=== PATIENT | female | born 1955 | race Caucasian/White ===

== ENCOUNTER → 2016-10-14 | Outpatient (CLI) | payer OTHER ==
--- NOTE | 2016-10-14 10:26 | RADIOLOGY REPORT (SQ) ---
EXAM DESCRIPTION: U/S ABDOMEN LIMITED W/O DOP COMPLETED DATE/TIME: 10/14/2016 9:50 am REASON FOR STUDY: UPPER ABD PAIN (R10.10) R10.10 UPPER ABDOMINAL PAIN, UNSPECIFIED COMPARISON: Abdominal ultrasound 03/25/2015 TECHNIQUE: Dynamic and static grayscale images acquired of the abdomen and recorded on PACS. Additio nal selected color Doppler and spectral images recorded. LIMITATIONS: None. FINDINGS: PANCREAS: Midline pancreas unremarkable LIVER: Diffuse increased echogenicity from diffuse hepatocellular disease or fatty infiltration. No hepatomegaly LIVER VASCULATURE: Normal directional flow of the main portal vein and hepatic veins. GALLBLADDER: No stones. Normal wall thickness. No pericholecystic fluid. ULTRASOUND-DETECTED TOMAS'S SIGN: Negative. INTRAHEPATIC DUCTS AND COMMON DUCT: CBD and intrahepatic ducts normal caliber. No filling defects. INFERIOR VENA CAVA: Normal flow. AORTA: No aneurysm. RIGHT KIDNEY: Normal size. Normal echogenicity. No solid or suspicious masses. No hydronephrosis. No calcifications. PERITONEAL AND RIGHT PLEURAL SPACE: No ascites or effusions. OTHER: No other significant findings. IMPRESSION: Increased echogenicity of the liver from fatty infiltration or diffuse hepatocellular di sease. This is similar compared to 03/25/2015. No gallstones, gallbladder wall thickening or pericholecystic fluid. TECHNICAL DOCUMENTATION: JOB ID: [id number] [employer]- All Rights Reserved
== END ==
LOC: RAD 09:05
PROVIDERS: ATTEND Family Medicine
DX: R10.10 Upper abdominal pain, unspecified (principal)
CPT/HCPCS: 76705

== ENCOUNTER → 2016-11-28 | Outpatient (CLI) | payer OTHER ==
--- NOTE | 2016-11-28 13:27 | RADIOLOGY REPORT (SQ) ---
EXAM DESCRIPTION: ELBOW RIGHT >2 VIEWS COMPLETED DATE/TIME: 11/28/2016 12:12 pm REASON FOR STUDY: LOOSE BODY IN RIGHT ELBOW M24.021 LOOSE BODY IN RIGHT ELBOW COMPARISON: None. NUMBER OF VIEWS: Four view. TECHNIQUE: AP, lateral, and both oblique radiographic images acquired of the right elbow. LIMITATIONS: None. FINDINGS: MINERALIZATION: Normal. BONES: No acute fracture or dislocation. No worrisome bone lesions. No significant osteophytes. JOINT: No effusions. SOFT TISSUES: No soft tissue swelling. No foreign body. OTHER: No other significant finding. IMPRESSION: NEGATIVE STUDY OF THE RIGHT ELBOW. NO EXPLANATION FOR PAIN. TECHNICAL DOCUMENTATION: JOB ID: [id number] [employer]- All Rights Reserved
== END ==
LOC: OD 11:55
PROVIDERS: ATTEND Family Medicine
DX: M24.021 Loose body in right elbow (principal)

== ENCOUNTER 2016-11-29 11:25 | Emergency (ER) | payer OTHER ==
[2016-11-29] MEDS ORDERED: NORMAL SALINE 1000 ML 1,000 ML IV PRN (11:39)
--- NOTE | 2016-11-29 11:40 | ER Document Report ---
ED Medical Screen (RME) - General Chief Complaint: Dizziness Stated Complaint: DIZZINESS Time Seen by Provider: 11/29/16 11:38 Notes: Patient presents with multiple complaints including being weak and dizzy. She states her blood pressure has been running low. She has been on 2 blood pressure medications chronically for years without problems. Here in triage her blood pressure is 86 systolically. Patient states she has felt short of breath. TRAVEL OUTSIDE OF THE [place] IN LAST 30 DAYS: No - Related Data Allergies/Adverse Reactions: aspirin [Aspirin] Allergy (Verified 11/29/16 11:38) Past Medical History - Social History Frequency of alcohol use: Occasional Drug Abuse: None - Past Medical History Cardiac Medical History: Reports: Hx Hypercholesterolemia, Hx Hypertension Denies: Hx Coronary Artery Disease, Hx Heart Attack Pulmonary Medical History: Reports: Hx Asthma, Hx Pneumonia Denies: Hx Bronchitis, Hx COPD Neurological Medical History: Denies: Hx Cerebrovascular Accident, Hx Seizures Renal/ Medical History: Denies: Hx Peritoneal Dialysis GI Medical History: Denies: Hx Hepatitis, Hx Hiatal Hernia, Hx Ulcer Musculoskeltal Medical History: Reports Hx Arthritis - knee's, back, hips Infectious Medical History: Denies: Hx Hepatitis Past Surgical History: Reports: Hx Appendectomy, Hx Hysterectomy, Hx Tonsillectomy. Denies: Hx Mastectomy, Hx Open Heart Surgery, Hx Pacemaker - Immunizations Hx Diphtheria, Pertussis, Tetanus Vaccination: Yes Physical Exam - Vital signs Vitals: Temp Pulse Resp BP Pulse Ox 97.4 F 84 16 86/61 L 97 11/29/16 11:29 11/29/16 11:29 11/29/16 11:29 11/29/16 11:29 11/29/16 11:29 Course - Vital Signs Vital signs: Temp Pulse Resp BP Pulse Ox 97.4 F 84 16 86/61 L 97 11/29/16 11:29 11/29/16 11:29 11/29/16 11:29 11/29/16 11:29 11/29/16 11:29
[2016-11-29 12:19] LABS: APPEARANCE,URINE CLOUDY; BILIRUBIN,URINE NEGATIVE (NEGATIVE); GLUCOSE, URINE NEGATIVE (NEGATIVE); KETONES,URINE NEGATIVE (NEGATIVE); LEUKOCYTE ESTERASE,URINE TRACE (NEGATIVE); NITRITE,URINE NEGATIVE (NEGATIVE); PROTEIN,URINE NEGATIVE (NEGATIVE); URINE SPECIFIC GRAVITY 1.017
--- NOTE | 2016-11-29 12:41 | ER Document Report ---
ED Dizziness/Weakness - General Chief Complaint: Dizziness Stated Complaint: DIZZINESS Time Seen by Provider: 11/29/16 11:38 Notes: Patient says that she has been feeling dizzy and weak and short of breath since Monday. Was feeling very dry mouth and thirsty. She had access to an Accu- Chek and took her blood sugar and it was 163. Yesterday, she checked her blood pressure and it was only 93/61. She is on 2 blood pressure medicines, Coreg 80 mg every morning and Norvasc 5 mg every evening. She has had some nausea and is been vomiting a couple times a week for the past several weeks. No diarrhea. Denies abdominal pain and denies any chest pains. Has noticed a little pressure with urinating recently and that her urine is dark in color. She has had some chest congestion and cough and feeling short of breath. Has a history of asthma. Also a smoker. Denies any fever or chills or sweats. Had a slight headache on Monday and again yesterday, but not at this time. Patient is in the process of having a GI workup and is had an ultrasound of her gallbladder that was normal and is scheduled to have an upper GI study. She was diagnosed as having a TIA in 1997 and is allergic to aspirin so she has been on Plavix for nearly 20 years. Has acid reflux. High cholesterol. Chronic back pain. Denies being under any unusual stress or strain or emotional anxiety. TRAVEL OUTSIDE OF THE [place] IN LAST 30 DAYS: No - Related Data Allergies/Adverse Reactions: aspirin [Aspirin] Allergy (Verified 11/29/16 11:38) Past Medical History - Social History Smoking Status: Current Every Day Smoker Frequency of alcohol use: Occasional Drug Abuse: None Family History: None Patient has suicidal ideation: No Patient has homicidal ideation: No - Past Medical History Cardiac Medical History: Reports: Hx Hypercholesterolemia, Hx Hypertension Denies: Hx Coronary Artery Disease, Hx Heart Attack Pulmonary Medical History: Reports: Hx Asthma, Hx Pneumonia Denies: Hx Bronchitis, Hx COPD Neurological Medical History: Reports: Other - History of TIA in 1997.. Denies : Hx Cerebrovascular Accident, Hx Seizures Endocrine Medical History: Denies: Hx Diabetes Mellitus Type 1, Hx Diabetes Mellitus Type 2 Musculoskeltal Medical History: Reports Hx Arthritis - knee's, back, hips Infectious Medical History: Denies: Hx Hepatitis Past Surgical History: Reports: Hx Appendectomy, Hx Hysterectomy, Hx Tonsillectomy - Immunizations Hx Diphtheria, Pertussis, Tetanus Vaccination: Yes Review of Systems - Review of Systems Notes: REVIEW OF SYSTEMS: CONSTITUTIONAL : Denies fever. EENT: Denies eye, ear, nose or mouth or throat pain or other symptoms. CARDIOVASCULAR: Denies chest pain. RESPIRATORY: See HPI. GASTROINTESTINAL: Denies abdominal pain , diarrhea, but has had vomiting a couple of times a week for the past several weeks.. GENITOURINARY: Denies difficulty or painful urinating, urinary frequency, blood in urine. Has felt some "pressure" with urination. Thinks her urine is darker in color than usual. MUSCULOSKELETAL: Denies back or neck pain. Denies joint pain or swelling. SKIN: Denies rash or skin lesions. NEUROLOGICAL: Denies LOC or altered mental status. Denies headache currently, but see HPI.. Denies sensory loss or motor deficits. ALL OTHER SYSTEMS REVIEWED AND NEGATIVE. Physical Exam - Vital signs Vitals: Temp Pulse Resp BP Pulse Ox 97.4 F 84 16 86/61 L 97 11/29/16 11:29 11/29/16 11:29 11/29/16 11:29 11/29/16 11:29 11/29/16 11:29 Interpretation: Hypotensive - Notes Notes: PHYSICAL EXAMINATION: GENERAL: Well-appearing, in no acute distress. Blood pressure 86/61. Pulse 84. Afebrile. HEAD: Atraumatic, normocephalic. EYES: Pupils equal round and reactive to light, extraocular movements intact. ENT: oropharynx clear without exudates. Moist mucous membranes. NECK: Normal range of motion, supple. LUNGS: Breath sounds clear and equal bilaterally. HEART: Regular rate and rhythm without murmurs. ABDOMEN: Soft, nontender. No guarding or rebound. BACK: No tenderness throughout entire back. EXTREMITIES: Normal range of motion without pain. Negative Homans bilaterally. NEUROLOGICAL: Normal speech, normal gait. Normal sensory, motor, and reflex exams. Awake, alert, and oriented x3. Cranial nerves normal. PSYCH: Normal mood, normal affect. SKIN: Warm, dry, no rashes. Course - Re-evaluation Re-evalutation: 11/29/16 16:46 Patient was given a liter of saline IV in the emergency department. She was advised to decrease her water intake and increase her salt in her food and beverages. - Vital Signs Vital signs: Temp Pulse Resp BP Pulse Ox 98.0 F 84 20 131/90 H 99 11/29/16 16:42 11/29/16 11:29 11/29/16 16:31 11/29/16 16:31 11/29/16 16:31 - Laboratory Result Diagrams: 11/29/16 12:35 11/29/16 12:35 Laboratory results interpreted by me: 11/29/16 11/29/16 11/29/16 11:46 12:35 12:35 RBC 3.41 L MCV 113 H MCH 38.8 H RDW 16.9 H Plt Count 144 L Sodium 129.2 L Carbon Dioxide 20 L Est GFR ( Amer) 53 L Est GFR (Non-Af Amer) 44 L Glucose 118 H Direct Bilirubin 0.7 H AST 39 H Total Protein 5.5 L Albumin 3.3 L Urine Urobilinogen 2.0 H Ur Leukocyte Esterase TRACE H - Diagnostic Test Radiology results interpreted by me: 11/29/16 14:52 Chest x-ray is normal. - EKG Interpretation by Me EKG shows normal: Sinus rhythm Rate: Normal Rhythm: NSR Additional EKG results interpreted by me: 11/29/16 12:43 EKG is normal. Discharge - Discharge Clinical Impression: Hyponatremia Condition: Stable Disposition: HOME, SELF-CARE Additional Instructions: DIZZINESS: Under normal circumstances, your sense of balance is controlled by a number of signals that your brain receives from several locations: Eyes. No matter what your position, visual signals help you determine where your body is in space and how it's moving. Sensory nerves. These are in your skin, muscles and joints. Sensory nerves send messages to your brain about body movements and positions. Inner ear. The organ of balance in your inner ear is the vestibular labyrinth. It includes loop-shaped structures (semicircular canals) that contain fluid and fine, hair-like sensors that monitor the rotation of your head. Near the semicircular canals are the utricle and saccule, which contain tiny particles called otoconia (l-oku-NZM-nee-uh). These particles are attached to sensors that help detect gravity and igcx-yhj-lvpym motion. Good balance depends on at least two of these three sensory systems working well. For instance, closing your eyes while washing your hair in the shower doesn't mean you'll lose your balance. Signals from your inner ear and sensory nerves help keep you upright. However, if your central nervous system can't process signals from all of these locations, if the messages are contradictory, or if the sensory systems aren't functioning properly, you may experience loss of balance. Dizziness may have a number of potential causes. These may include: Feeling of faintness (presyncope) "Presyncope" is the medical term for feeling faint and lightheaded without losing consciousness. Sometimes nausea, pale skin and a sense of dizziness accompany a feeling of faintness. Causes of presyncope include: Drop in blood pressure (orthostatic hypotension). A dramatic drop in your systolic blood pressure - the higher number in your blood pressure reading - may result in lightheadedness or a feeling of faintness. It can occur after sitting up or standing too quickly. Inadequate output of blood from the heart. Conditions such as partially blocked arteries (atherosclerosis), disease of the heart muscle (cardiomyopathy) , abnormal heart rhythm (arrhythmia) or a decrease in blood volume may cause inadequate blood flow from your heart. Lightheadedness and other kinds of dizziness Feeling lightheaded is the feeling of being "spaced out" or having the sensation of spinning inside your head. It can also give you the sensation that if your lightheadedness worsens, you might lose consciousness. Causes may include: Inner ear disorders. These abnormalities of your inner ear can lead to illusions of motion and make you feel like you're floating. Anxiety disorders. Certain anxiety disorders, such as panic attacks and a fear of leaving home or being in large, open spaces (agoraphobia), may cause lightheadedness. Hyperventilation. Abnormally rapid breathing that often accompanies anxiety disorders may make you feel lightheaded. Hyponatremia You have an abnormally low level of serum sodium, called hyponatremia. Low serum sodium may cause weakness, fatigue, confusion, or even seizures. Usually, low sodium is due to taking diuretics (water pills), combined with drinking too much water. It can also be due to excessive vomiting or diarrhea. If no obvious cause is evident, further evaluation will be necessary. If the hyponatremia results from taking diuretics, it's treated by restricting the amount of water you can drink. If it's due to vomiting and diarrhea, it's treated by drinking liberal amounts of rehydration solution (for example Lytren or Pedialyte). A follow-up blood test is often done to see that the sodium is returning to normal. Call the physician if you have severe weakness, muscle twitching or cramping, palpitations (pounding or irregular heartbeat), confusion, headache, seizures, or any other new or alarming symptoms. Except for your low sodium level, you have a NORMAL EXAM AND WORKUP: At this time, your examination and workup show no significant abnormality. No significant abnormal physical findings were noted. All laboratory, EKG, and imaging (x-ray, CT scans, ultrasound) studies that were ordered show no significant abnormality. Although your examination and all studies that were ordered showed no significant abnormal finding, there are no examinations and no studies that are 100% accurate. There is always the possibility that some abnormality could exist and not be detected with physical examination or within the limits and capabilities of laboratory and other studies. You should return or follow up as you were instructed on your visit today for further evaluation if your symptoms do not resolve. Drink plenty of fluids that have salt in them such as sodas, etc. Use some extra table salt at the time of your meals. Reduce your alcohol intake as it will lower your sodium level. FOLLOW-UP CARE: If you have been referred to a physician for follow-up care, call the physician s office for an appointment as you were instructed or within the next two days. If you experience worsening or a significant change in your symptoms, notify the physician immediately or return to the Emergency Department at any time for re-evaluation. Follow-up with Dr. Correia next week so that she can recheck your labs and make sure everything is doing well. Referrals: MOLLY CORREIA MD [Primary Care Provider] - Follow up in 1 week
[2016-11-29 12:52] LABS: ABSOLUTE BASOPHILS # (AUTO) 0.1 10^3/uL (0.0-0.2); ABSOLUTE EOSINOPHILS # (AUTO) 0.1 10^3/uL (0.0-0.6); ABSOLUTE LYMPHOCYTES (AUTO) 1.4 10^3/uL (0.5-4.7); ABSOLUTE MONOCYTES (AUTO) 0.3 10^3/uL (0.1-1.4); ABSOLUTE NEUT (AUTO) 3.2 10^3/uL (1.7-8.2); BASOPHILS % (AUTO) 1.8 % (0-2); EOSINOPHILS % (AUTO) 1.8 % (0-6); HEMATOCRIT 38.6 % (36.0-47.0); HEMOGLOBIN 13.2 g/dL (12.0-15.5); LYMPHOCYTES % (AUTO) 28.4 % (13-45); MEAN CORPUSCULAR HEMOGLOBIN 38.8 pg (27.0-33.4); MEAN CORPUSCULAR HGB CONC 34.3 g/dL (32.0-36.0); MONOCYTES % (AUTO) 5.6 % (3-13); RED BLOOD COUNT 3.41 10^6/uL (3.72-5.28); RED CELL DISTRIBUTION WIDTH 16.9 % (11.5-14.0); SEGMENTED NEUTROPHILS % (AUTO) 62.4 % (42-78); WHITE BLOOD COUNT 5.1 10^3/uL (4.0-10.5)
[2016-11-29 13:12] LABS: ALANINE AMINOTRANSFERASE 33 U/L (9-52); ALBUMIN 3.3 g/dL (3.5-5.0); ALKALINE PHOSPHATASE 71 U/L (38-126); ANION GAP 7 (5-19); ASPARTATE AMINO TRANSFERASE 39 U/L (14-36); BILIRUBIN,DIRECT 0.7 mg/dL (0.0-0.4); BILIRUBIN,TOTAL 1.2 mg/dL (0.2-1.3); BLOOD UREA NITROGEN 14 mg/dL (7-20); CARBON DIOXIDE 20 mmol/L (22-30); CHLORIDE 102 mmol/L (98-107); CREATININE RESULT 1.24 mg/dL (0.52-1.25); GLUCOSE 118 mg/dL (75-110); POTASSIUM 4.6 mmol/L (3.6-5.0); SODIUM 129.2 mmol/L (137-145); TOTAL PROTEIN 5.5 g/dL (6.3-8.2)
[2016-11-29 13:17] LABS: MEAN CORPUSCULAR VOLUME 113 fl (80-97)
[2016-11-29 13:18] LABS: ANISOCYTOSIS 1+; TOXIC GRANULATION 1+; TOXIC VACUOLATION PRESENT
--- NOTE | 2016-11-29 13:31 | RADIOLOGY REPORT (SQ) ---
EXAM DESCRIPTION: CHEST PA/LAT COMPLETED DATE/TIME: 11/29/2016 1:19 pm REASON FOR STUDY: Short of breath, low blood pressure, congested COMPARISON: 11/05/2015 EXAM PARAMETERS: NUMBER OF VIEWS: two views TECHNIQUE: Digital Frontal and Lateral radiographic views of the chest acquired. RADIATION DOSE: NA LIMITATIONS: none FINDINGS: LUNGS AND PLEURA: No opacities, masses or pneumothorax. No pleural effusion. MEDIASTINUM AND HILAR STRUCTURES: No masses or contour abnormalities. HEART AND VASCULAR STRUCTURES: Heart normal size. No evidence for failure. BONES: No acute findings. HARDWARE: None in the chest. OTHER: No other significant finding. IMPRESSION: NO SIGNIFICANT RADIOGRAPHIC FINDING IN THE CHEST. TECHNICAL DOCUMENTATION: JOB ID: [id number] [employer]- All Rights Reserved
[2016-11-29 16:41] VITALS: BP 131/90
--- NOTE | 2016-11-29 21:12 | EKG REPORT ---
SEVERITY:- ABNORMAL ECG - SINUS RHYTHM PROBABLE INFERIOR INFARCT, OLD : Confirmed by: Matthew Cerna 29-Nov-2016 21:10:53
== END 2016-11-29 17:03 | disposition home or self-care (01) ==
LOC: ER 11:25
DX: E87.1 Hypo-osmolality and hyponatremia (principal); R42 Dizziness and giddiness; J45.909 Unspecified asthma, uncomplicated; I95.9 Hypotension, unspecified; R06.02 Shortness of breath; R53.1 Weakness; R68.2 Dry mouth, unspecified; R11.2 Nausea with vomiting, unspecified; R05 Cough; R09.89 Other specified symptoms and signs involving the circulatory and respiratory systems; R39.89 Other symptoms and signs involving the genitourinary system; I10 Essential (primary) hypertension; F17.200 Nicotine dependence, unspecified, uncomplicated; Z79.899 Other long term (current) drug therapy; Z88.6 Allergy status to analgesic agent; Z87.01 Personal history of pneumonia (recurrent)
CPT/HCPCS: 93005; 99284; 96360; 36415; 87040; 87086; 85025; 80053; 81001; 71020; 93010; J7030

== ENCOUNTER → 2017-01-17 | Outpatient (CLI) | payer OTHER ==
--- NOTE | 2017-01-17 14:47 | RADIOLOGY REPORT (SQ) ---
EXAM DESCRIPTION: CHEST PA/LATERAL COMPLETED DATE/TIME: 01/17/2017 2:31 pm REASON FOR STUDY: COUGH COMPARISON: 11/29/2016 NUMBER OF VIEWS: Two view. TECHNIQUE: Frontal and lateral radiographic views of the chest acquired. LIMITATIONS: None. FINDINGS: LUNGS AND PLEURA: No opacities, masses or pneumothorax. No pleural effusion. MEDIASTINUM AND HILAR STRUCTURES: No masses or contour abnormalities. HEART AND VASCULATURE: Heart normal size. No evidence for failure. BONY STRUCTURES: No acute findings. HARDWARE: None. OTHER: No other significant finding. IMPRESSION: NO SIGNIFICANT RADIOGRAPHIC FINDING IN THE CHEST. No interval change. TECHNICAL DOCUMENTATION: JOB ID: [id number] [employer]- All Rights Reserved
== END ==
LOC: OD 14:19
PROVIDERS: ATTEND Family Medicine
DX: R05 Cough (principal)
CPT/HCPCS: 71020

== ENCOUNTER → 2017-06-02 | Outpatient (CLI) | payer OTHER ==
--- NOTE | 2017-06-02 10:34 | RADIOLOGY REPORT (SQ) ---
EXAM DESCRIPTION: CHEST PA/LAT COMPLETED DATE/TIME: 06/02/2017 9:19 am REASON FOR STUDY: R06.02 SHORTNESS OF BREATH COMPARISON: Two-view chest 11/29/2016, 03/28/2012 EXAM PARAMETERS: NUMBER OF VIEWS: two views TECHNIQUE: Digital Frontal and Lateral radiographic views of the chest acquired. RADIATION DOSE: NA LIMITATIONS: none FINDINGS: LUNGS AND PLEURA: No opacities, masses or pneumothorax. No pleural effusion. MEDIASTINUM AND HILAR STRUCTURES: No masses or contour abnormalities. HEART AND VASCULAR STRUCTURES: Heart normal size. No evidence for failure. BONES: No acute findings. HARDWARE: None in the chest. OTHER: No other significant finding. IMPRESSION: NO SIGNIFICANT RADIOGRAPHIC FINDING IN THE CHEST. TECHNICAL DOCUMENTATION: JOB ID: [id number] [employer]- All Rights Reserved
--- NOTE | 2017-06-02 12:41 | RADIOLOGY REPORT (SQ) ---
EXAM DESCRIPTION: NM LUNG VENT/PERF SCAN COMPLETED DATE/TIME: 06/02/2017 11:02 am REASON FOR STUDY: R06.02 SHORTNESS OF BREATH R06.02 SHORTNESS OF BREATH COMPARISON: Chest films 06/02/2017, 11/29/2016 RADIONUCLIDE AND DOSE: 5.2 millicuries TC-99m MAA Intravenous 32.4 millicuries TC-99m DTPA Inhaled aerosol TECHNIQUE: Eight views of the lungs acquired post ventilation of DTPA aerosol. Eight matching views of the lungs acquired following injection of MAA. LIMITATIONS: None. FINDINGS: VENTILATION: Symmetric and homogeneous distribution of DTPA aerosol during ventilatory pha se. No significant areas of photopenia. PERFUSION: Perfusion images with normal homogenous activity and no wedge-shaped or segmental defects. No ventilation-perfusion mismatches. OTHER: No other significant finding. IMPRESSION: NORMAL VENTILATION-PERFUSION LUNG SCAN. NEGATIVE FOR PULMONARY EMBOLI. TECHNICAL DOCUMENTATION: JOB ID: [id number] [employer]- All Rights Reserved Reading location - IP/workstation name: [email or web address]
== END ==
LOC: RAD 09:46
PROVIDERS: ATTEND Family Medicine
DX: R06.02 Shortness of breath (principal)
CPT/HCPCS: 71046; 78582; A9540; A9567; Q9969

== ENCOUNTER → 2017-06-06 | Outpatient (CLI) | payer OTHER ==
--- NOTE | 2017-06-06 10:29 | WOMENS IMAGING REPORT ---
EXAM DESCRIPTION: BONE DENSITY HIP/SPINE COMPLETED DATE/TIME: 06/06/2017 9:18 am REASON FOR STUDY: SCREENING MAMMO, ASYMPTOMATIC MENOPAUSAL STATE Z12.31 ENCNTR SCREEN MAMMOGRAM FOR MALIGNANT NEOPLASM OF AMELIA Z78.0 ASYMPTOMATIC MENOPAUSAL STATE COMPARISON: Multiple since 2008 TECHNIQUE: Dual-Energy X-ray Absorptiometry (DEXA) of the AP Spine and Hip. LIMITATIONS: None. FINDINGS: LUMBAR SPINE: The bone mineral density (BMD) measured from L1-L4 in the AP projection correlates with a T-score of -0.7, which is within normal limits as defined by the World Health Organization. Please note that th is does include vertebral body endplate sclerosis and posterior element sclerosis. This is a 5% incr ease since baseline assessment in 2008, and a 4% increase in bone density since 2014 HIP: The bone mineral density (BMD) measured in the left femoral neck at the hip correlates with a T-score of -2.0, which is osteopenic as defined by the World Health Organization. This is stable compared t o baseline assessment in 2008 IMPRESSION: 1. LUMBAR SPINE: Normal 2. HIP: Osteopenic COMMENT: The World Health Organization defines low BMD as follows: T-score: Normal: Greater than -1.0 Osteopenia: Between -1.0 and -2.5 Osteoporosis: Less than -2.5 without fractures Established osteoporosis: Less than -2.5 with fractures In general, you may wish to consider: Diagnosis Treatment Follow-up DEXA Normal BMD Prevention 2-3 years Osteopenia Prevention/Therapy 1-2 years Osteoporosis Therapy Yearly TECHNICAL DOCUMENTATION: JOB ID: [id number] [employer]- All Rights Reserved Reading location - IP/workstation name: [facility] / [email or web address]
--- NOTE | 2017-06-06 11:54 | WOMENS IMAGING REPORT ---
EXAM DESCRIPTION: BILAT SCREENING MAMMO W/CAD COMPLETED DATE/TIME: 06/06/2017 9:18 am REASON FOR STUDY: SCREENING MAMMO, ASYMPTOMATIC MENOPAUSAL STATE Z12.31 ENCNTR SCREEN MAMMOGRAM FOR MALIGNANT NEOPLASM OF AMELIA Z78.0 ASYMPTOMATIC MENOPAUSAL STATE COMPARISON: 03/10/2015 and 02/27/2013 TECHNIQUE: Standard craniocaudal and mediolateral oblique views of each breast recorded using digita l acquisition. LIMITATIONS: None. FINDINGS: No masses, calcifications or architectural distortion. No areas of suspicion. Read with the assistance of CAD. .[facility] - R2 Cenova Version 1.3 .[facility] - R2 Cenova Version 1.3 .[facility] - R2 Cenova Version 2.4 .[facility] [place] R2 Cenova Version 2.4 .[facility] - R2 Senior Care Manager Version 9.2 IMPRESSION: NORMAL MAMMOGRAM. BIRADS 1. BREAST DENSITY: b. There are scattered areas of fibroglandular density. BIRAD: 1 NEGATIVE RECOMMENDATION: ROUTINE SCREENING COMMENT: The patient has been notified of the results by letter per MQSA requirements. Additional no tification policies are in place for contacting patient with suspicious or incomplete findings. Quality ID #[id number]: The [employer] recommends an annual screening mammogram for women aged 40 years or over. This facility utilizes a reminder system to ensure that all patients receive reminder letters, and/or direct phone calls for appointments. This includes reminders for routine scr eening mammograms, diagnostic mammograms, or other Breast Imaging Interventions when appropriate. Th is patient will be placed in the appropriate reminder system. The [employer] (ACR) has developed recommendations for screening MRI of the breast s in certain patient populations, to be used in conjunction with mammography. Breast MRI surveillanc e may be appropriate for women with more than 20% lifetime risk of developing breast cancer as deter mined by genetic testing, significant family history of the disease, or history of mantle radiation f or Hodgkins Disease. ACR Practice Guidelines 2008. TECHNICAL DOCUMENTATION: FINDING NUMBER: (1) ASSESSMENT: (1) JOB ID: [id number] [employer]- All Rights Reserved Reading location - IP/workstation name: [email or web address]
== END ==
LOC: WI 08:03
PROVIDERS: ATTEND Family Medicine
DX: Z12.31 Encounter for screening mammogram for malignant neoplasm of breast (principal); Z78.0 Asymptomatic menopausal state
CPT/HCPCS: 77067; 77080

== ENCOUNTER → 2017-06-26 | Outpatient (CLI) | payer OTHER ==
--- NOTE | 2017-06-26 15:26 | RADIOLOGY REPORT (SQ) ---
EXAM DESCRIPTION: MRI LUMBAR SPINE WITHOUT COMPLETED DATE/TIME: 06/26/2017 10:36 am REASON FOR STUDY: INTERVERTEBRAL DISC DISORDERS WITH RADICULOPATHY M51.16 INTERVERTEBRAL DISC DISOR DERS W RADICULOPATHY, LUMBAR COMPARISON: MRI lumbar spine 12/17/2007 TECHNIQUE: Sagittal and Axial imaging includes T1, T2, STIR and gradient echo sequences. Coronal T2/ HASTE imaging. LIMITATIONS: None. FINDINGS: VISUALIZED UPPER ABDOMEN: Limited evaluation. No acute or suspicious findings suggested. SEGMENTATION: No transitional anatomy. The lowest well-developed disc space is labeled L5-S1. ALIGNMENT: Anatomic. VERTEBRAE: Intact. BONE MARROW: Normal. No marrow replacement or reactive changes. DISC SIGNAL: Diffuse decreased T2 weighted intervertebral disc signal throughout L4-5 and L5-S1. Dis c space loss of height at L5-S1. POSTERIOR ELEMENTS: Generally intact. No pars defect evident. HARDWARE: None in the spine. CORD AND CONUS: Normal in size and signal intensity. Conus at the L1-2 level. SOFT TISSUES: No aortic aneurysm seen. No bulky retroperitoneal adenopathy or mass. No paraspinal mas s or fluid. T11-12: Unremarkable T12-L1: Unremarkable L1-L2: Unremarkable L2-L3: Unremarkable L3-L4: Mild bilateral facet hypertrophy is present. No central or foraminal encroachment. No fire extinguisher charger ior disc bulging. L4-L5: Small annular tear along the left foraminal and lateral disc margin, best shown on axial T2 im age 25. Minimal posterior disc bulging at L4-5 with moderate bilateral facet and ligament hypertroph y. No significant central canal or foraminal encroachment. No exiting L4 nerve root impingement. L5-S1: Mild diffuse posterior disc bulging is present left greater than right with mild bilateral fac et hypertrophy. No central stenosis. Mild right inferior foraminal narrowing. Mild to moderate lef t foraminal narrowing. No exiting L5 nerve root impingement SACRUM: Visualized upper sacrum intact. OTHER: No other significant findings. IMPRESSION: Left foraminal and lateral annular tear at L4-5 Degenerative changes at L4-5 and L5-S1 without high-grade central or foraminal stenosis TECHNICAL DOCUMENTATION: JOB ID: [id number] [employer]- All Rights Reserved Reading location - IP/workstation name: [email or web address] [facility]
== END ==
LOC: RAD 09:46
PROVIDERS: ATTEND Family Medicine
DX: M51.16 Intervertebral disc disorders with radiculopathy, lumbar region (principal)
CPT/HCPCS: 72148

== ENCOUNTER 2017-10-28 13:34 | Inpatient (IN) | payer OTHER ==
--- NOTE | 2017-10-28 14:51 | ER Document Report ---
ED Medical Screen (RME) - General Chief Complaint: Abdominal Pain Stated Complaint: ABDOMINAL PAIN Time Seen by Provider: 10/28/17 14:45 TRAVEL OUTSIDE OF THE [place] IN LAST 30 DAYS: No - HPI Notes: 10/28/17 14:50 Right upper quadrant abdominal pain starting at 10:00 this morning. Patient noted to be hypotensive in triage. - Related Data Allergies/Adverse Reactions: aspirin [Aspirin] Allergy (Verified 10/28/17 13:35) Past Medical History - Past Medical History Cardiac Medical History: Reports: Hx Hypercholesterolemia, Hx Hypertension Denies: Hx Coronary Artery Disease, Hx Heart Attack Pulmonary Medical History: Reports: Hx Asthma, Hx Pneumonia Denies: Hx Bronchitis, Hx COPD Neurological Medical History: Denies: Hx Cerebrovascular Accident, Hx Seizures Endocrine Medical History: Denies: Hx Diabetes Mellitus Type 1, Hx Diabetes Mellitus Type 2 Renal/ Medical History: Denies: Hx Peritoneal Dialysis GI Medical History: Denies: Hx Hepatitis, Hx Hiatal Hernia, Hx Ulcer Musculoskeltal Medical History: Reports Hx Arthritis - knee's, back, hips Infectious Medical History: Denies: Hx Hepatitis Past Surgical History: Reports: Hx Appendectomy, Hx Hysterectomy, Hx Tonsillectomy. Denies: Hx Mastectomy, Hx Open Heart Surgery, Hx Pacemaker - Immunizations Hx Diphtheria, Pertussis, Tetanus Vaccination: Yes Review of Systems - Review of Systems Gastrointestinal: Abdominal pain, Nausea Physical Exam - Vital signs Vitals: Temp Pulse Resp BP Pulse Ox 98.0 F 88 22 H 95/78 L 99 10/28/17 14:01 10/28/17 14:01 10/28/17 14:01 10/28/17 14:01 10/28/17 14:01 - Abdominal Tenderness: Nontender, Tender - Right upper quadrant tenderness Course - Vital Signs Vital signs: Temp Pulse Resp BP Pulse Ox 98 F 88 16 85/64 L 96 10/28/17 14:36 10/28/17 14:36 10/28/17 14:36 10/28/17 14:36 10/28/17 14:36 Doctor's Discharge - Discharge Referrals: MOLLY CORREIA MD [Primary Care Provider] - Follow up as needed
[2017-10-28] MEDS: NORMAL SALINE 1000 ML 1,000 ML IV PRN ×3 (15:20→18:00)
[2017-10-28 15:27] LABS: ABSOLUTE BASOPHILS # (AUTO) 0.1 10^3/uL (0.0-0.2); ABSOLUTE LYMPHOCYTES (AUTO) 2.5 10^3/uL (0.5-4.7); ABSOLUTE MONOCYTES (AUTO) 0.5 10^3/uL (0.1-1.4); ABSOLUTE NEUT (AUTO) 9.7 10^3/uL (1.7-8.2); BASOPHILS % (AUTO) 0.5 % (0-2); EOSINOPHILS % (AUTO) 0.4 % (0-6); HEMATOCRIT 46.3 % (36.0-47.0); HEMOGLOBIN 15.7 g/dL (12.0-15.5); LYMPHOCYTES % (AUTO) 19.1 % (13-45); MEAN CORPUSCULAR HEMOGLOBIN 33.8 pg (27.0-33.4); MEAN CORPUSCULAR HGB CONC 33.9 g/dL (32.0-36.0); MEAN CORPUSCULAR VOLUME 100 fl (80-97); MONOCYTES % (AUTO) 4.3 % (3-13); PLATELET COUNT 248 10^3/uL (150-450); RED BLOOD COUNT 4.66 10^6/uL (3.72-5.28); RED CELL DISTRIBUTION WIDTH 13.7 % (11.5-14.0); SEGMENTED NEUTROPHILS % (AUTO) 75.7 % (42-78); TOTAL CELLS COUNTED % (AUTO) 100 %; WHITE BLOOD COUNT 12.8 10^3/uL (4.0-10.5)
[2017-10-28 15:46] LABS: ALANINE AMINOTRANSFERASE 74 U/L (9-52); ALBUMIN 4.4 g/dL (3.5-5.0); ALKALINE PHOSPHATASE 91 U/L (38-126); ANION GAP 14 (5-19); ASPARTATE AMINO TRANSFERASE 106 U/L (14-36); BILIRUBIN,DIRECT 0.4 mg/dL (0.0-0.4); BILIRUBIN,TOTAL 0.8 mg/dL (0.2-1.3); BLOOD UREA NITROGEN 16 mg/dL (7-20); CALCIUM 9.9 mg/dL (8.4-10.2); CARBON DIOXIDE 27 mmol/L (22-30); CHLORIDE 96 mmol/L (98-107); GLUCOSE 196 mg/dL (75-110); POTASSIUM 4.8 mmol/L (3.6-5.0); SODIUM 136.6 mmol/L (137-145); TOTAL PROTEIN 7.2 g/dL (6.3-8.2)
[2017-10-28] MEDS ORDERED: MORPHINE SULFATE 10 MG/ML INJ IV ONE (15:56)
[2017-10-28] MEDS ORDERED: ONDANSETRON HCL INJ/PF 4 MG/2 ML SDV IV ONE (15:56)
--- NOTE | 2017-10-28 16:23 | ER Document Report ---
ED GI/ - General Chief Complaint: Abdominal Pain Stated Complaint: ABDOMINAL PAIN Time Seen by Provider: 10/28/17 14:45 TRAVEL OUTSIDE OF THE [place] IN LAST 30 DAYS: No - HPI Patient complains to provider of: Abdominal pain, Vomiting Onset: This morning Timing/Duration: Sudden Quality of pain: Achy, Cramping, Sharp Severity at maximum: Moderate Severity in ED: Moderate Pain Level: 3 Location: RUQ Associated symptoms: Nausea, Vomiting Exacerbated by: Denies Relieved by: Denies Notes: 10/28/17 16:22 Patient is a 62-year-old female presenting to the emergency room today complaining of right upper quadrant abdominal pain with nausea and vomiting this morning while she was watching television, she denies any urinary symptoms , no bowel movement today, no history of similar symptoms previously - Related Data Allergies/Adverse Reactions: aspirin [Aspirin] Allergy (Verified 10/28/17 13:35) Past Medical History - General Information source: Patient - Social History Smoking Status: Current Every Day Smoker Chew tobacco use (# tins/day): No Frequency of alcohol use: Social Drug Abuse: None Family History: None Patient has suicidal ideation: No Patient has homicidal ideation: No - Past Medical History Cardiac Medical History: Reports: Hx Hypercholesterolemia, Hx Hypertension Denies: Hx Coronary Artery Disease, Hx Heart Attack Pulmonary Medical History: Reports: Hx Asthma, Hx Pneumonia Denies: Hx Bronchitis, Hx COPD Neurological Medical History: Denies: Hx Cerebrovascular Accident, Hx Seizures Endocrine Medical History: Denies: Hx Diabetes Mellitus Type 1, Hx Diabetes Mellitus Type 2 Renal/ Medical History: Denies: Hx Peritoneal Dialysis GI Medical History: Denies: Hx Hepatitis, Hx Hiatal Hernia, Hx Ulcer Musculoskeletal Medical History: Reports Hx Arthritis - knee's, back, hips Infectious Medical History: Denies: Hx Hepatitis Past Surgical History: Reports: Hx Appendectomy, Hx Hysterectomy, Hx Tonsillectomy. Denies: Hx Mastectomy, Hx Open Heart Surgery, Hx Pacemaker - Immunizations Hx Diphtheria, Pertussis, Tetanus Vaccination: Yes Review of Systems - Review of Systems Constitutional: No symptoms reported EENT: No symptoms reported Cardiovascular: No symptoms reported Respiratory: No symptoms reported Gastrointestinal: See HPI Genitourinary: No symptoms reported Female Genitourinary: No symptoms reported Musculoskeletal: No symptoms reported Skin: No symptoms reported Hematologic/Lymphatic: No symptoms reported Neurological/Psychological: No symptoms reported -: Yes All other systems reviewed and negative Physical Exam - Vital signs Vitals: Temp Pulse Resp BP Pulse Ox 98.0 F 88 22 H 95/78 L 99 10/28/17 14:01 10/28/17 14:01 10/28/17 14:01 10/28/17 14:01 10/28/17 14:01 Interpretation: Normal - General General appearance: Appears well, Alert - HEENT Head: Normocephalic, Atraumatic Eyes: Normal Pupils: PERRL - Respiratory Respiratory status: No respiratory distress Chest status: Nontender Breath sounds: Normal Chest palpation: Normal - Cardiovascular Rhythm: Regular Heart sounds: Normal auscultation Murmur: No - Abdominal Inspection: Normal Distension: No distension Bowel sounds: Normal Tenderness: Tender - Right upper quadrant Organomegaly: No organomegaly - Back Back: Normal, Nontender - Extremities General upper extremity: Normal inspection, Nontender, Normal color, Normal ROM , Normal temperature General lower extremity: Normal inspection, Nontender, Normal color, Normal ROM , Normal temperature, Normal weight bearing. No: Meri's sign - Neurological Neuro grossly intact: Yes Cognition: Normal Orientation: AAOx4 [place] Coma Scale Eye Opening: Spontaneous [place] Coma Scale Verbal: Oriented [place] Coma Scale Motor: Obeys Commands [place] Coma Scale Total: 15 Speech: Normal Motor strength normal: LUE, RUE, LLE, RLE Sensory: Normal - Psychological Associated symptoms: Normal affect, Normal mood - Skin Skin Temperature: Warm Skin Moisture: Dry Skin Color: Normal Course - Vital Signs Vital signs: Temp Pulse Resp BP Pulse Ox 98 F 88 19 140/94 H 100 10/28/17 14:36 10/28/17 14:36 10/28/17 16:01 10/28/17 16:01 10/28/17 16:01 - Laboratory Result Diagrams: 10/28/17 13:10 10/28/17 13:10 Laboratory results interpreted by me: 10/28/17 10/28/17 13:10 13:10 WBC 12.8 H Hgb 15.7 H MCV 100 H MCH 33.8 H Absolute Neutrophils 9.7 H Sodium 136.6 L Chloride 96 L Est GFR ( Amer) 53 L Est GFR (Non-Af Amer) 44 L Glucose 196 H AST 106 H ALT 74 H Lipase 93316.2 H Discharge - Discharge Clinical Impression: Acute pancreatitis Qualifiers: Pancreatitis type: unspecified pancreatitis type Acute pancreatitis complication: no infection or necrosis Qualified Code(s): K85.90 - Acute pancreatitis without necrosis or infection, unspecified Condition: Stable Disposition: ADMITTED INPATIENT Admitting Provider: Hospitalist Unit Admitted: Medical Floor Referrals: MOLLY CORREIA MD [Primary Care Provider] - Follow up as needed
[2017-10-28 16:24] LABS: LIPASE 12093.2 U/L (23-300)
--- NOTE | 2017-10-28 16:38 | RADIOLOGY REPORT (SQ) ---
EXAM DESCRIPTION: U/S ABDOMEN LIMITED W/O DOP COMPLETED DATE/TIME: 10/28/2017 4:26 pm REASON FOR STUDY: ruq pain COMPARISON: 10/14/2016. TECHNIQUE: Dynamic and static grayscale images acquired of the abdomen and recorded on PACS. Elenao alexander selected color Doppler and spectral images recorded. LIMITATIONS: None. FINDINGS: PANCREAS: No masses. No peripancreatic edema or fluid collections. LIVER: Echotexture is coarse with increased echogenicity consistent with fatty infiltration. LIVER VASCULATURE: Normal directional flow of the main portal vein and hepatic veins. GALLBLADDER: No stones. Normal wall thickness. No pericholecystic fluid. ULTRASOUND-DETECTED TOMAS'S SIGN: Negative. INTRAHEPATIC DUCTS AND COMMON DUCT: CBD and intrahepatic ducts normal caliber. No filling defects. INFERIOR VENA CAVA: Normal flow. AORTA: No aneurysm. RIGHT KIDNEY: Normal size. Normal echogenicity. No solid or suspicious masses. No hydronephrosis. No calcifications. PERITONEAL AND RIGHT PLEURAL SPACE: No ascites or effusions. OTHER: No other significant finding. IMPRESSION: FATTY INFILTRATION OF THE LIVER. OTHERWISE NORMAL RIGHT UPPER QUADRANT ULTRASOUND. TECHNICAL DOCUMENTATION: JOB ID: [id number] [employer]- All Rights Reserved Reading location - IP/workstation name: [email or web address]
[2017-10-28] MEDS ORDERED: ONDANSETRON 4 MG TAB.RAPDIS PO PRN (17:15)
[2017-10-28] MEDS ORDERED: ZOLPIDEM TARTRATE 5 MG TABLET PO PRN (17:15)
[2017-10-28] MEDS ORDERED: ACETAMINOPHEN 325 MG TABLET PO PRN (17:15)
[2017-10-28] MEDS ORDERED: GLUCAGON,HUMAN RECOMB 1 MG INJ SUBCUT PRN (17:15)
[2017-10-28] MEDS ORDERED: DEXTROSE 40% GEL 15 GM TUBE PO PRN ×2 (17:15)
[2017-10-28] MEDS ORDERED: DEXTROSE 50%-WATER 25 GM/50 ML DISP.SYRIN IV PRN ×2 (17:15)
[2017-10-28] MEDS ORDERED: ALBUTEROL SULFATE HFA (90 MCG/PUFF) 8 GM MDI (1 MDI/ER DISP) IH PRN (17:22)
[2017-10-28] MEDS ORDERED: CYCLOBENZAPRINE HCL 10 MG TABLET PO PRN (17:22)
[2017-10-28] MEDS ORDERED: NITROGLYCERIN 0.4 MG/TAB 25 TAB/BOTTLE SL PRN (17:22)
[2017-10-28] MEDS: HYDROMORPHONE HCL INJ/PF 2 MG/ML AMPULE IV PRN ×2 (18:00→21:49)
[2017-10-28] MEDS: GABAPENTIN 300 MG CAPSULE PO SCH (18:01)
--- NOTE | 2017-10-28 18:03 | PDOC H&P ---
History of Present Illness Admission Date/PCP: 10/28/17 17:10 MOLLY CORREIA MD Patient complains of: Epigastric pain with nausea History of Present Illness: KOTA DELAROSA is a 62 year old female with past medical history of essential hypertension, asthma, dyslipidemia and TIA. Patient developed severe epigastric pain and nausea this morning. She states she has never had pain like this before. She did not vomit but felt like she was going to. She denies any fevers or chills associated with the pain. She denies any change in bowel habits either. She is found to have an elevated lipase of 12,000. She has mild upper right upper quadrant pain. Ultrasound of the right upper quadrant shows fatty liver no signs of cholecystitis or cholelithiasis. Patient does drink alcohol weekly. She states in moderate amounts. Past Medical History Cardiac Medical History: Reports: Hyperlipidema, Hypertension Denies: Coronary Artery Disease, Myocardial Infarction Pulmonary Medical History: Reports: Asthma, Pneumonia Denies: Bronchitis, Chronic Obstructive Pulmonary Disease (COPD) EENT Medical History: Reports: None Neurological Medical History: Reports: None, Other - TIA Denies: Seizures Endocrine Medical History: Reports: None Denies: Diabetes Mellitus Type 1, Diabetes Mellitus Type 2 Renal/ Medical History: Reports: None Malignancy Medical History: Reports: None GI Medical History: Reports: None Denies: Hepatitis, Hiatal Hernia Musculoskeltal Medical History: Reports: Arthritis - knee's, back, hips Psychiatric Medical History: Reports: None Traumatic Medical History: Reports: None Hematology: Reports: None Denies: Anemia, Sickle Cell Disease Infectious Medical History: Reports: None Past Surgical History Past Surgical History: Reports: Appendectomy, Hysterectomy, Tonsillectomy Denies: Amputation, Mastectomy, Pacemaker Social History Information Source: Patient Lives with: Family Smoking Status: Current Every Day Smoker Cigarettes Packs Per Day: 0.5 Number of Years Smokin Last Time Smoked: 10/28/2017 Frequency of Alcohol Use: Occasional Amount of Alcoholic Beverages Per Day: 3-4 drinks per week Hx Recreational Drug Use: No - Advance Directive Resuscitation Status: Full Code Surrogate healthcare decision maker:: Ebenezer Family History Family History: CAD, Hypertension Parental Family History Reviewed: Yes Children Family History Reviewed: Yes Sibling(s) Family History Reviewed.: Yes Medication/Allergy Home Medications: Calcium/Magnesium/Vit D3 [Calcium 500 mg Tablet] 1 tab PO DAILY 10/29/15 Cholecalciferol (Vitamin D3) [Vitamin D3 1000 unit Chewable Tablet] 2 tab PO DAILY 10/29/15 Clopidogrel Bisulfate [Plavix 75 mg Tablet] 75 mg PO DAILY 10/29/15 Crill Oil 300 mg DAILY 10/29/15 Cyclobenzaprine HCl [Flexeril 10 mg Tablet] 10 mg PO TIDP PRN 10/29/15 Hydrocodone Bit/Acetaminophen [Hydrocodon-Acetaminophen 5-325] 1 tab PO Q6 10/28 Pantoprazole Sodium [Protonix] 40 mg PO BID 10/29/15 Vitamin B12 1 ml INJ [id number] 10/29/15 Albuterol Sulfate [Ventolin Hfa 8 gm Mdi (1 Mdi/ER Disp)] 2 puff IH ASDIR PRN Carvedilol Phosphate [Coreg Cr] 20 mg PO DAILY 10/28/17 Fluticasone/Salmeterol [Advair 250-50 Diskus 14 Dose/Diskus] 10/28/17 Gabapentin 600 mg PO BID 10/28/17 Nitroglycerin [Nitrostat] 1 tab SL PRN PRN 10/28/17 Rosuvastatin Calcium [Crestor] 10 mg PO DAILY 10/28/17 Ubidecarenone [Co Q-10] 100 mg PO DAILY 10/28/17 Allergies/Adverse Reactions: aspirin [Aspirin] Allergy (Verified 10/28/17 13:35) Review of Systems Constitutional: ABSENT: chills, fever(s), headache(s), weight gain, weight loss Ears: ABSENT: hearing changes Cardiovascular: ABSENT: chest pain, dyspnea on exertion, edema, orthropnea, palpitations Respiratory: ABSENT: cough, hemoptysis Gastrointestinal: PRESENT: abdominal pain, nausea Genitourinary: ABSENT: dysuria, hematuria Musculoskeletal: ABSENT: joint swelling Integumentary: ABSENT: rash, wounds Neurological: ABSENT: abnormal gait, abnormal speech, confusion, dizziness, focal weakness, syncope Psychiatric: ABSENT: anxiety, depression, homidical ideation, suicidal ideation Endocrine: ABSENT: cold intolerance, heat intolerance, polydipsia, polyuria Hematologic/Lymphatic: ABSENT: easy bleeding, easy bruising Physical Exam Vital Signs: Temp Pulse Resp BP Pulse Ox 98 F 88 19 140/94 H 100 10/28/17 14:36 10/28/17 14:36 10/28/17 16:01 10/28/17 16:01 10/28/17 16:01 General appearance: PRESENT: no acute distress, well-developed, well-nourished Head exam: PRESENT: atraumatic, normocephalic Eye exam: PRESENT: conjunctiva pink, EOMI, PERRLA. ABSENT: scleral icterus Ear exam: PRESENT: normal external ear exam Mouth exam: PRESENT: dry mucosa, neck supple, tongue midline Neck exam: ABSENT: carotid bruit, JVD, lymphadenopathy, thyromegaly Respiratory exam: PRESENT: clear to auscultation roxie. ABSENT: rales, rhonchi, wheezes Cardiovascular exam: PRESENT: RRR. ABSENT: diastolic murmur, rubs, systolic murmur Pulses: PRESENT: normal dorsalis pedis pul Vascular exam: PRESENT: normal capillary refill GI/Abdominal exam: PRESENT: soft, tenderness - epigastric Rectal exam: PRESENT: deferred Extremities exam: PRESENT: full ROM. ABSENT: calf tenderness, clubbing, pedal edema Musculoskeletal exam: PRESENT: ambulatory, full ROM Neurological exam: PRESENT: alert, awake, oriented to person, oriented to place , oriented to time, oriented to situation, CN II-XII grossly intact. ABSENT: motor sensory deficit Psychiatric exam: PRESENT: appropriate affect, normal mood. ABSENT: homicidal ideation, suicidal ideation Skin exam: PRESENT: dry, intact, warm. ABSENT: cyanosis, rash Results Impressions: Abdomen Ultrasound 10/28/17 14:49 IMPRESSION: FATTY INFILTRATION OF THE LIVER. OTHERWISE NORMAL RIGHT UPPER QUADRANT ULTRASOUND. Assessment & Plan - Diagnosis (5) Acute pancreatitis Qualifiers: Pancreatitis type: unspecified pancreatitis type Acute pancreatitis complication: no infection or necrosis Qualified Code(s): K85.90 - Acute pancreatitis without necrosis or infection, unspecified - Time Time Spent: 50 to 70 Minutes Critical Time spent with patient: 25-34 minutes Smoking Cessation Education: 3 to 10 minutes Medications reviewed and adjusted accordingly: Yes Anticipated discharge: Home
[2017-10-28 20:51] LABS: APPEARANCE,URINE SLIGHTLY-CLOUDY; BILIRUBIN,URINE NEGATIVE (NEGATIVE); COLOR,URINE YELLOW; GLUCOSE, URINE 50 mg/dL (NEGATIVE); KETONES,URINE NEGATIVE (NEGATIVE); LEUKOCYTE ESTERASE,URINE NEGATIVE (NEGATIVE); NITRITE,URINE NEGATIVE (NEGATIVE); PROTEIN,URINE 30 mg/dL (NEGATIVE); URINE SPECIFIC GRAVITY 1.014; UROBILINOGEN,URINE NEGATIVE mg/dL (<2.0)
[2017-10-28] MEDS: ATORVASTATIN CALCIUM 20 MG TABLET PO SCH (21:49)
[2017-10-28] MEDS: FAMOTIDINE INJ/PF 20 MG/2 ML SDV IV SCH (21:49)
[2017-10-29] MEDS: NORMAL SALINE 1000 ML 1,000 ML IV PRN ×3 (02:29→21:55)
[2017-10-29 08:16] LABS: ABSOLUTE LYMPHOCYTES (AUTO) 1.2 10^3/uL (0.5-4.7); ABSOLUTE MONOCYTES (AUTO) 0.4 10^3/uL (0.1-1.4); ABSOLUTE NEUT (AUTO) 5.3 10^3/uL (1.7-8.2); BASOPHILS % (AUTO) 0.1 % (0-2); EOSINOPHILS % (AUTO) 0.3 % (0-6); HEMATOCRIT 35.3 % (36.0-47.0); LYMPHOCYTES % (AUTO) 17.7 % (13-45); MEAN CORPUSCULAR HEMOGLOBIN 34.5 pg (27.0-33.4); MEAN CORPUSCULAR HGB CONC 34.4 g/dL (32.0-36.0); MEAN CORPUSCULAR VOLUME 101 fl (80-97); MONOCYTES % (AUTO) 5.9 % (3-13); PLATELET COUNT 148 10^3/uL (150-450); RED BLOOD COUNT 3.52 10^6/uL (3.72-5.28); RED CELL DISTRIBUTION WIDTH 13.7 % (11.5-14.0); TOTAL CELLS COUNTED % (AUTO) 100 %; WHITE BLOOD COUNT 6.9 10^3/uL (4.0-10.5)
[2017-10-29 08:20] LABS: HEMOGLOBIN 12.1 g/dL (12.0-15.5)
[2017-10-29 08:23] LABS: ALANINE AMINOTRANSFERASE 53 U/L (9-52); ALBUMIN 2.8 g/dL (3.5-5.0); ALKALINE PHOSPHATASE 63 U/L (38-126); ANION GAP 9 (5-19); ASPARTATE AMINO TRANSFERASE 63 U/L (14-36); BILIRUBIN,DIRECT 0.3 mg/dL (0.0-0.4); BILIRUBIN,TOTAL 0.6 mg/dL (0.2-1.3); BLOOD UREA NITROGEN 17 mg/dL (7-20); CALCIUM 8.1 mg/dL (8.4-10.2); CARBON DIOXIDE 23 mmol/L (22-30); CHLORIDE 106 mmol/L (98-107); CHOLESTEROL 116.11 mg/dL (0-200); GLUCOSE 93 mg/dL (75-110); LIPASE 1167.5 U/L (23-300); POTASSIUM 4.3 mmol/L (3.6-5.0); SODIUM 138.3 mmol/L (137-145); TOTAL PROTEIN 5.9 g/dL (6.3-8.2); TRIGLYCERIDES 130 mg/dL (<150)
[2017-10-29 08:35] LABS: DIRECT LDL 38 mg/dL (<100)
[2017-10-29] MEDS: CARVEDILOL 6.25 MG TABLET PO SCH ×2 (09:29→21:54)
[2017-10-29] MEDS: GABAPENTIN 300 MG CAPSULE PO SCH ×2 (09:29→17:17)
[2017-10-29] MEDS: CLOPIDOGREL BISULFATE 75 MG TABLET PO SCH (09:30)
[2017-10-29] MEDS: HYDROMORPHONE HCL INJ/PF 2 MG/ML AMPULE IV PRN ×2 (09:31→21:54)
[2017-10-29] MEDS: FAMOTIDINE INJ/PF 20 MG/2 ML SDV IV SCH ×2 (09:32→21:54)
[2017-10-29] MEDS: NICOTINE 21 MG/24 HR PATCH.TD24 TD SCH (09:32)
[2017-10-29] MEDS ORDERED: ENOXAPARIN SODIUM INJ 40 MG/0.4 ML DISP.SYRIN SUBCUT SCH (10:00)
--- NOTE | 2017-10-29 17:52 | PDOC PROGRESS REPORT ---
Subjective Progress Note for:: 10/29/17 Subjective:: Patient is seen resting in bed. She denies any chest pain, shortness of breath or dyspnea. She states her abdominal pain is much improved from yesterday. She has no nausea at the current time. She had some nausea overnight but no vomiting. Denies any diarrhea. She denies any significant arthralgias or myalgias. Remaining review of systems are negative. Reason For Visit: ACUTE PANCREATITIS Physical Exam Vital Signs: Temp Pulse Resp BP Pulse Ox 99.4 F 98 14 107/70 97 10/29/17 15:43 10/29/17 15:43 10/29/17 15:43 10/29/17 15:43 10/29/17 15:43 Intake & Output 10/28/17 10/29/17 10/30/17 06:59 06:59 06:59 Intake Total 1500 Output Total 300 Balance 1200 Weight 67.1 kg General appearance: PRESENT: no acute distress, well-developed, well-nourished Head exam: PRESENT: atraumatic, normocephalic Eye exam: PRESENT: conjunctiva pink, EOMI, PERRLA. ABSENT: scleral icterus Ear exam: PRESENT: normal external ear exam Mouth exam: PRESENT: moist, tongue midline Neck exam: ABSENT: carotid bruit, JVD, lymphadenopathy, thyromegaly Respiratory exam: PRESENT: clear to auscultation roxie. ABSENT: rales, rhonchi, wheezes Cardiovascular exam: PRESENT: RRR. ABSENT: diastolic murmur, rubs, systolic murmur Pulses: PRESENT: normal dorsalis pedis pul Vascular exam: PRESENT: normal capillary refill GI/Abdominal exam: PRESENT: normal bowel sounds, soft, tenderness - Mild epigastric tenderness to palpation. ABSENT: distended, guarding, mass, organolmegaly, rebound Rectal exam: PRESENT: deferred Extremities exam: PRESENT: full ROM. ABSENT: calf tenderness, clubbing, pedal edema Musculoskeletal exam: PRESENT: ambulatory, full ROM Neurological exam: PRESENT: alert, awake, oriented to person, oriented to place , oriented to time, oriented to situation, CN II-XII grossly intact. ABSENT: motor sensory deficit Psychiatric exam: PRESENT: appropriate affect, normal mood. ABSENT: homicidal ideation, suicidal ideation Skin exam: PRESENT: dry, intact, warm. ABSENT: cyanosis, rash Results Laboratory Results: 10/29/17 07:27 10/29/17 07:27 10/28/17 10/29/17 10/29/17 20:31 07:27 07:27 WBC 6.9 RBC 3.52 L Hgb 12.1 D Hct 35.3 L MCV 101 H MCH 34.5 H MCHC 34.4 RDW 13.7 Plt Count 148 L Seg Neutrophils % 76.0 Lymphocytes % 17.7 Monocytes % 5.9 Eosinophils % 0.3 Basophils % 0.1 Absolute Neutrophils 5.3 Absolute Lymphocytes 1.2 Absolute Monocytes 0.4 Absolute Eosinophils 0.0 Absolute Basophils 0.0 Sodium 138.3 Potassium 4.3 Chloride 106 Carbon Dioxide 23 Anion Gap 9 BUN 17 Creatinine 1.68 H Est GFR ( Amer) 37 L Est GFR (Non-Af Amer) 31 L Glucose 93 Calcium 8.1 L Magnesium 1.3 L Total Bilirubin 0.6 AST 63 H ALT 53 H Alkaline Phosphatase 63 Total Protein 5.9 L Albumin 2.8 L Triglycerides 130 Cholesterol 116.11 LDL Cholesterol Direct 38 VLDL Cholesterol 26.0 HDL Cholesterol 64 Lipase 1167.5 H Urine Color YELLOW Urine Appearance SLIGHTLY-CLOUDY Urine pH 6.0 Ur Specific [place] 1.014 Urine Protein 30 H Urine Glucose (UA) 50 H Urine Ketones NEGATIVE Urine Blood NEGATIVE Urine Nitrite NEGATIVE Ur Leukocyte Esterase NEGATIVE Urine WBC (Auto) 9 Urine RBC (Auto) 1 Impressions: Abdomen Ultrasound 10/28/17 14:49 IMPRESSION: FATTY INFILTRATION OF THE LIVER. OTHERWISE NORMAL RIGHT UPPER QUADRANT ULTRASOUND. Assessment & Plan - Diagnosis (1) Acute pancreatitis Qualifiers: Pancreatitis type: unspecified pancreatitis type Acute pancreatitis complication: no infection or necrosis Qualified Code(s): K85.90 - Acute pancreatitis without necrosis or infection, unspecified Is this a current diagnosis for this admission?: Yes Plan: Lipase is much improved from 12,800 yesterday to 1080 today. Abdominal pain is resolved as well as nausea start clear liquids slowly continue IV fluid. (2) Essential hypertension Is this a current diagnosis for this admission?: Yes Plan: Current medications. (3) Acute kidney injury Is this a current diagnosis for this admission?: Yes Plan: Patient is dehydrated continue IV fluids. (4) Dyslipidemia Is this a current diagnosis for this admission?: Yes Plan: Continue statin (5) Tobacco abuse Is this a current diagnosis for this admission?: Yes (6) Epigastric pain Is this a current diagnosis for this admission?: Yes Plan: Continue Pepcid 20 mg IV every 12. And IV hydration. (7) Nausea Is this a current diagnosis for this admission?: Yes Plan: Zofran as needed. - Time Time Spent with patient: 25-34 minutes Total Critical Time (Minutes): 20 Smoking Cessation Education: 3 to 10 minutes Medications reviewed and adjusted accordingly: Yes Anticipated discharge: Home - Inpatient Certification Based on my medical assessment, after consideration of the patient's comorbidities, presenting symptoms, or acuity I expect that the services needed warrant INPATIENT care.: Yes I certify that my determination is in accordance with my understanding of Medicare's requirements for reasonable and necessary INPATIENT services [42 CFR 412.3e].: Yes Medical Necessity: Need For IV Fluids, Need for Pain Control
[2017-10-29] MEDS: ATORVASTATIN CALCIUM 20 MG TABLET PO SCH (21:54)
[2017-10-30] MEDS: NORMAL SALINE 1000 ML 1,000 ML IV PRN (05:47)
[2017-10-30 07:38] LABS: ANION GAP 8 (5-19); BLOOD UREA NITROGEN 13 mg/dL (7-20); CALCIUM 7.7 mg/dL (8.4-10.2); CARBON DIOXIDE 22 mmol/L (22-30); CHLORIDE 105 mmol/L (98-107); GLUCOSE 95 mg/dL (75-110); LIPASE 98.7 U/L (23-300); POTASSIUM 3.8 mmol/L (3.6-5.0); SODIUM 134.5 mmol/L (137-145)
[2017-10-30] MEDS: HYDROMORPHONE HCL INJ/PF 2 MG/ML AMPULE IV PRN (10:03)
[2017-10-30] MEDS: GABAPENTIN 300 MG CAPSULE PO SCH (10:04)
[2017-10-30] MEDS: CARVEDILOL 6.25 MG TABLET PO SCH (10:05)
[2017-10-30] MEDS: FAMOTIDINE INJ/PF 20 MG/2 ML SDV IV SCH (10:06)
[2017-10-30] MEDS: CLOPIDOGREL BISULFATE 75 MG TABLET PO SCH (10:07)
[2017-10-30] MEDS: NICOTINE 21 MG/24 HR PATCH.TD24 TD SCH (10:12)
[2017-10-30] MEDS ORDERED: GUAIFENESIN 600 MG TABLET.SA PO ONE (12:00)
[2017-10-30] MEDS ORDERED: LEVOFLOXACIN 750 MG TABLET PO SCH (14:00)
--- NOTE | 2017-10-30 16:35 | RADIOLOGY REPORT (SQ) ---
EXAM DESCRIPTION: CHEST 2 VIEWS COMPLETED DATE/TIME: 10/30/2017 4:26 pm REASON FOR STUDY: Cough and chest congestion COMPARISON: 06/02/2017 EXAM PARAMETERS: NUMBER OF VIEWS: two views TECHNIQUE: Digital Frontal and Lateral radiographic views of the chest acquired. RADIATION DOSE: NA LIMITATIONS: Right nipple shadow. FINDINGS: LUNGS AND PLEURA: No opacities, masses or pneumothorax. No pleural effusion. MEDIASTINUM AND HILAR STRUCTURES: No masses or contour abnormalities. HEART AND VASCULAR STRUCTURES: Heart normal size. No evidence for failure. BONES: No acute findings. HARDWARE: None in the chest. OTHER: No other significant finding. IMPRESSION: NO ACUTE RADIOGRAPHIC FINDING IN THE CHEST. TECHNICAL DOCUMENTATION: JOB ID: [id number] [employer]- All Rights Reserved Reading location - IP/workstation name: [email or web address]
[2017-10-30 16:43] VITALS: BP 119/85
--- NOTE | 2017-10-30 20:39 | PDOC DISCHARGE SUMMARY ---
General - Admit/Disc Date/PCP Admission Date/Primary Care Provider: 10/28/17 17:10 MOLLY CORREIA MD Discharge Date: 10/30/17 - Discharge Diagnosis (1) Acute pancreatitis Is this a current diagnosis for this admission?: Yes Summary: Resolved (2) Essential hypertension Is this a current diagnosis for this admission?: Yes (3) Acute kidney injury Is this a current diagnosis for this admission?: Yes (4) Dyslipidemia Is this a current diagnosis for this admission?: Yes (5) Tobacco abuse Is this a current diagnosis for this admission?: Yes (6) Epigastric pain Is this a current diagnosis for this admission?: Yes (7) Nausea Is this a current diagnosis for this admission?: Yes - Additional Information Resuscitation Status: Full Code Discharge Diet: Regular Discharge Activity: Activity As Tolerated, Balance Activity w/Rest Prescriptions: Hydrocodone/Acetaminophen [[place] 5-325 Tablet] 1 - 2 tab PO Q6H PRN #15 tab PRN Reason: Levofloxacin [Levaquin 750 mg Tablet] 750 mg PO DAILY@1400 #6 tablet Home Medications: Calcium/Magnesium/Vit D3 [Calcium 500 mg Tablet] 2 tab PO DAILY 10/29/15 Clopidogrel Bisulfate [Plavix 75 mg Tablet] 75 mg PO QHS 10/29/15 Cyclobenzaprine HCl [Flexeril 10 mg Tablet] 10 mg PO TIDP PRN 10/29/15 Pantoprazole Sodium [Protonix] 40 mg PO QAM 10/29/15 Fluticasone/Salmeterol [Advair 250-50 Diskus 14 Dose/Diskus] 1 puff IH BID 10/28 Nitroglycerin [Nitrostat] 1 tab SL PRN PRN 10/28/17 Rosuvastatin Calcium [Crestor] 10 mg PO QHS 10/28/17 Ubidecarenone [Co Q-10] 100 mg PO QHS 10/28/17 Carvedilol Phosphate [Coreg CR 40 mg Ext. Release Capsule] 40 mg PO DAILY Cholecalciferol (Vitamin D3) [Vitamin D3 2000 unit Tablet] 4,000 unit PO DAILY 10/29/17 Clindamycin Phosphate 1 each TP BID 10/29/17 Cyanocobalamin (Vitamin B-12) [Vitamin B-12 Inj 1000 Mcg/1 ml Vial] 1,000 mcg IM Q14D 10/29/17 Fluticasone Propionate [Flonase Nasal [place] 50 Mcg/[place] 16 gm] 2 sprays NASL DAILYP PRN 10/29/17 Gabapentin Enacarbil [Horizant] 600 mg PO QPM 10/29/17 Guaifenesin/D-Methorphan Hb [Robitussin-Dm Syrup 10 ml Udcup] 10 ml PO TIDP PRN 10/29/17 Krill/[place]-3/Dha/Epa/Lipids [Krill Oil 300 mg Softgel] 1 each PO DAILY Melatonin [Melatonin 5 mg Tablet] 10 mg PO HSP PRN 10/29/17 Multivit-Minerals/Folic Acid [One-A-Day Women Vitacraves] 400 mcg PO DAILY 10/29 Acetaminophen [Tylenol 325 mg Tablet] 650 mg PO Q4HP PRN tablet 10/30/17 Hydrocodone/Acetaminophen [[place] 5-325 Tablet] 1 - 2 tab PO Q6H PRN #15 tab Levofloxacin [Levaquin 750 mg Tablet] 750 mg PO DAILY@1400 #6 tablet 10/30/17 History of Present Illness Patient complains of: Abdominal pain and nausea History of Present Illness: KOTA DELAROSA is a 62 year old female with past medical history of essential hypertension, asthma, dyslipidemia and TIA. Patient developed severe epigastric pain and nausea this morning. She states she has never had pain like this before. She did not vomit but felt like she was going to. She denies any fevers or chills associated with the pain. She denies any change in bowel habits either. She is found to have an elevated lipase of 12,000. She has mild upper right upper quadrant pain. Ultrasound of the right upper quadrant shows fatty liver no signs of cholecystitis or cholelithiasis. Patient does drink alcohol weekly. She states in moderate amounts. Hospital Course Hospital Course: Patient was admitted to the medical floor on telemetry. She was given IV hydration, prn antiemetics and analgesics. She was kept NPO. The following day her lipase was down to 1100. Her pain and nausea were much improved. She was given clear liquid diet. Today her lipase was down to 98. Diet was advanced to regular. She had a worsening cough and sinus congestion from a URI she had over the previous week. Chest xray showed no pneumonia. She was started on oral levaquin and mucinex and discharged home with family. She was encouraged to abstain from alcohol. Physical Exam Vital Signs: Temp Pulse Resp BP Pulse Ox 98.9 F 97 16 119/85 95 10/30/17 16:41 10/30/17 16:41 10/30/17 16:41 10/30/17 16:41 10/30/17 16:41 Intake & Output 10/29/17 10/30/17 10/31/17 06:59 06:59 06:59 Intake Total 1500 3601 Output Total 300 400 Balance 1200 3201 Weight 67.1 kg 64.7 kg General appearance: PRESENT: no acute distress, well-developed, well-nourished Head exam: PRESENT: atraumatic, normocephalic Eye exam: PRESENT: conjunctiva pink, EOMI, PERRLA. ABSENT: scleral icterus Ear exam: PRESENT: normal external ear exam Mouth exam: PRESENT: moist, tongue midline Neck exam: ABSENT: carotid bruit, JVD, lymphadenopathy, thyromegaly Respiratory exam: PRESENT: clear to auscultation roxie, symmetrical, unlabored. ABSENT: rales, rhonchi, wheezes Cardiovascular exam: PRESENT: RRR. ABSENT: diastolic murmur, rubs, systolic murmur Pulses: PRESENT: normal dorsalis pedis pul Rectal exam: PRESENT: deferred Extremities exam: PRESENT: full ROM. ABSENT: calf tenderness, clubbing, pedal edema Neurological exam: PRESENT: alert, awake, oriented to person, oriented to place , oriented to time, oriented to situation, CN II-XII grossly intact. ABSENT: motor sensory deficit Psychiatric exam: PRESENT: appropriate affect, normal mood. ABSENT: homicidal ideation, suicidal ideation Skin exam: PRESENT: dry, intact, warm. ABSENT: cyanosis, rash Results Laboratory Results: 10/29/17 07:27 10/30/17 04:36 10/30/17 04:36 Sodium 134.5 L Potassium 3.8 Chloride 105 Carbon Dioxide 22 Anion Gap 8 BUN 13 Creatinine 1.08 Est GFR ( Amer) > 60 Est GFR (Non-Af Amer) 52 L Glucose 95 Calcium 7.7 L Lipase 98.7 Impressions: Abdomen Ultrasound 10/28/17 14:49 IMPRESSION: FATTY INFILTRATION OF THE LIVER. OTHERWISE NORMAL RIGHT UPPER QUADRANT ULTRASOUND. Chest X-Ray 10/30/17 00:00 IMPRESSION: NO ACUTE RADIOGRAPHIC FINDING IN THE CHEST. Qualifiers - * PATIENT BEING DISCHARGED WITH ANY OF THE FOLLOWING DIAGNOSIS: No Plan Discharge Plan: Home with family. Follow up with pcp as needed Time Spent: Less than 30 Minutes
[2017-10-30] MEDS ORDERED: GUAIFENESIN 600 MG TABLET.SA PO SCH (22:00)
== END 2017-10-30 17:04 | disposition home or self-care (01) | DRG 439 ==
LOC: ER 13:34 → EH 17:10 → 4N 18:48
PROVIDERS: ADMIT Internal Medicine; ATTEND Internal Medicine
DX: K85.90 Acute pancreatitis without necrosis or infection, unspecified (principal); N17.9 Acute kidney failure, unspecified; I10 Essential (primary) hypertension; E78.00 Pure hypercholesterolemia, unspecified; J45.909 Unspecified asthma, uncomplicated; K76.0 Fatty (change of) liver, not elsewhere classified; M17.0 Bilateral primary osteoarthritis of knee; M47.9 Spondylosis, unspecified; M16.0 Bilateral primary osteoarthritis of hip; F17.210 Nicotine dependence, cigarettes, uncomplicated; Z88.6 Allergy status to analgesic agent; Z90.710 Acquired absence of both cervix and uterus; Z86.73 Personal history of transient ischemic attack (TIA), and cerebral infarction without residual deficits; Z79.899 Other long term (current) drug therapy; Z82.49 Family history of ischemic heart disease and other diseases of the circulatory system
CPT/HCPCS: 36415; 71046; 76705; 80048; 80053; 80061; 81001; 83690; 83735; 85025; 96361; 96374; 96375; 99285; J1170; J2270; J2405; J7030; S0028; S0119

== ENCOUNTER 2018-03-13 15:37 | Inpatient (IN) | payer OTHER ==
--- NOTE | 2018-03-13 16:22 | ER Document Report ---
ED Medical Screen (RME) - General Chief Complaint: Chest Pressure Stated Complaint: DIFFICULTY BREATHING Mode of Arrival: Ambulatory Information source: Patient Notes: 62-year-old female with hypertension, hyperlipidemia presents with complaint of chest pain. Patient states that for the last year she has had multiple syncopal episodes. She states today she did fall but did not lose consciousness or hit her head. Patient has been seen by her primary care physician who sent her to cardiology but she states that no stress test or Holter monitor was done. Patient is complaining of left-sided aching chest pain that started this morning. She does state that prior to her syncopal episode she does become short of breath. I have greeted and performed a rapid initial assessment of this patient. A comprehensive ED assessment and evaluation of the patient, analysis of test results and completion of medical decision making process we will be contacted by additional ED providers. PHYSICAL EXAMINATION: Vital signs reviewed GENERAL: Well-appearing, well-nourished and in no acute distress. LUNGS: No respiratory distress Musculoskeletal: Normal range of motion NEUROLOGICAL: Normal speech, normal gait. PSYCH: Normal mood, normal affect. SKIN: Warm, Dry, normal turgor, no rashes or lesions noted. TRAVEL OUTSIDE OF THE [place] IN LAST 30 DAYS: No - HPI Onset: Other Onset/Duration: Intermittent Quality of pain: Achy Severity: Mild Associated Symptoms: Chest pain, Shortness of breath Exacerbated by: Denies Relieved by: Denies Similar symptoms previously: Yes Recently seen / treated by doctor: Yes - Related Data Smoking: Cigarettes Frequency of alcohol use: None Drug Abuse: None Allergies/Adverse Reactions: aspirin [Aspirin] Allergy (Verified 03/13/18 16:17) Past Medical History - Social History Chew tobacco use (# tins/day): No Frequency of alcohol use: Occasional Drug Abuse: None - Past Medical History Cardiac Medical History: Reports: Hx Hypercholesterolemia, Hx Hypertension Denies: Hx Coronary Artery Disease, Hx Heart Attack Pulmonary Medical History: Reports: Hx Asthma, Hx Pneumonia Denies: Hx Bronchitis, Hx COPD Neurological Medical History: Denies: Hx Cerebrovascular Accident, Hx Seizures Endocrine Medical History: Denies: Hx Diabetes Mellitus Type 1, Hx Diabetes Mellitus Type 2 Renal/ Medical History: Reports: Hx End Stage Renal Disease. Denies: Hx Peritoneal Dialysis GI Medical History: Denies: Hx Hepatitis, Hx Hiatal Hernia, Hx Ulcer Musculoskeltal Medical History: Reports Hx Arthritis - knee's, back, hips Psychiatric Medical History: Reports: Hx Depression Infectious Medical History: Denies: Hx Hepatitis Past Surgical History: Reports: Hx Appendectomy, Hx Hysterectomy, Hx Tonsillectomy. Denies: Hx Mastectomy, Hx Open Heart Surgery, Hx Pacemaker - Immunizations Hx Diphtheria, Pertussis, Tetanus Vaccination: Yes History of Influenza Vaccine for 01/2017 - 06/2017 Season: Yes Physical Exam - Vital signs Vitals: Temp Pulse Resp BP Pulse Ox 97.4 F 100 18 111/92 H 100 03/13/18 15:59 03/13/18 15:59 03/13/18 15:59 03/13/18 15:59 03/13/18 15:59 Course - Vital Signs Vital signs: Temp Pulse Resp BP Pulse Ox 97.4 F 100 18 119/91 H 100 03/13/18 15:59 03/13/18 15:59 03/13/18 15:59 03/13/18 16:01 03/13/18 15:59 Doctor's Discharge - Discharge Referrals: MOLLY CORREIA MD [Primary Care Provider] - Follow up as needed
--- NOTE | 2018-03-13 16:32 | RADIOLOGY REPORT (SQ) ---
EXAM DESCRIPTION: CHEST 2 VIEWS COMPLETED DATE/TIME: 03/13/2018 4:06 pm REASON FOR STUDY: chest pain/short of breath COMPARISON: 10/30/2017 EXAM PARAMETERS: NUMBER OF VIEWS: two views TECHNIQUE: Digital Frontal and Lateral radiographic views of the chest acquired. RADIATION DOSE: NA LIMITATIONS: none FINDINGS: LUNGS AND PLEURA: No opacities, masses or pneumothorax. No pleural effusion. MEDIASTINUM AND HILAR STRUCTURES: No masses or contour abnormalities. HEART AND VASCULAR STRUCTURES: Heart normal size. No evidence for failure. BONES: No acute findings. HARDWARE: None in the chest. OTHER: No other significant finding. IMPRESSION: 1. No ACUTE RADIOGRAPHIC FINDING IN THE CHEST. TECHNICAL DOCUMENTATION: JOB ID: [id number] [employer]- All Rights Reserved Reading location - IP/workstation name: [email or web address]
[2018-03-13 17:07] LABS: ABSOLUTE BASOPHILS # (AUTO) 0.1 10^3/uL (0.0-0.2); ABSOLUTE EOSINOPHILS # (AUTO) 0.1 10^3/uL (0.0-0.6); ABSOLUTE LYMPHOCYTES (AUTO) 3.6 10^3/uL (0.5-4.7); ABSOLUTE MONOCYTES (AUTO) 0.5 10^3/uL (0.1-1.4); ABSOLUTE NEUT (AUTO) 4.7 10^3/uL (1.7-8.2); BASOPHILS % (AUTO) 0.8 % (0-2); EOSINOPHILS % (AUTO) 0.9 % (0-6); HEMATOCRIT 41.2 % (36.0-47.0); HEMOGLOBIN 14.5 g/dL (12.0-15.5); LYMPHOCYTES % (AUTO) 40.3 % (13-45); MEAN CORPUSCULAR HEMOGLOBIN 36.1 pg (27.0-33.4); MEAN CORPUSCULAR HGB CONC 35.3 g/dL (32.0-36.0); MEAN CORPUSCULAR VOLUME 102 fl (80-97); MONOCYTES % (AUTO) 5.5 % (3-13); PLATELET COUNT 231 10^3/uL (150-450); RED BLOOD COUNT 4.02 10^6/uL (3.72-5.28); RED CELL DISTRIBUTION WIDTH 14.7 % (11.5-14.0); SEGMENTED NEUTROPHILS % (AUTO) 52.5 % (42-78); TOTAL CELLS COUNTED % (AUTO) 100 %
[2018-03-13 17:30] LABS: ALANINE AMINOTRANSFERASE 47 U/L (9-52); ALKALINE PHOSPHATASE 145 U/L (38-126); ANION GAP 14 (5-19); ASPARTATE AMINO TRANSFERASE 128 U/L (14-36); BILIRUBIN,DIRECT 0.6 mg/dL (0.0-0.4); BILIRUBIN,TOTAL 1.1 mg/dL (0.2-1.3); BLOOD UREA NITROGEN 8 mg/dL (7-20); CALCIUM 8.4 mg/dL (8.4-10.2); CARBON DIOXIDE 27 mmol/L (22-30); CHLORIDE 91 mmol/L (98-107); CREATINE KINASE 144 U/L (30-135); GLUCOSE 124 mg/dL (75-110); POTASSIUM 3.7 mmol/L (3.6-5.0); SODIUM 132.2 mmol/L (137-145); TOTAL PROTEIN 6.5 g/dL (6.3-8.2)
[2018-03-13 17:41] LABS: CREATINE KINASE MB 1.71 ng/mL (<4.55); TROPONIN I 0.02 ng/mL
[2018-03-13] MEDS ORDERED: NORMAL SALINE 1000 ML 1,000 ML IV ONE (19:19)
--- NOTE | 2018-03-13 19:42 | ER Document Report ---
ED General - General Chief Complaint: Chest Pressure Stated Complaint: DIFFICULTY BREATHING Time Seen by Provider: 03/13/18 16:28 Mode of Arrival: Ambulatory Notes: Patient is a 62-year-old female presenting to the emergency department complaining of multiple syncopal episodes starting in April. Patient states she has had approximately 2 near syncopal or syncopal episodes of the day since the beginning of April. Patient states typically she gets very short of breath more so upon exertion and feels as though she is going to pass out and has to sit down. Patient states intermittently the syncopal episodes also give her left sided dull chest pain. Patient states this morning she did have a left -sided dull chest pain nonradiating rated at 3 out of 10. Patient states she did not like her initial primary care provider so she went to a different doctor today. Patient states at the doctor's office they did an EKG which they told her was abnormal and she needed to present to the emergency room. Patient states she has seen a slide attendant within the last 8 months. States her primary care center to the slide attendant because of her syncopal episodes and shortness of breath. Patient states the slide attendant did an EKG in his office but she never had a stress test or echo. Patient also states intermittently her bilateral feet and bilateral hands feel numb and tingly states she cramps in her feet, states her primary care provider put her on gabapentin. Past medical history: Hypertension, hyperlipidemia, chronic kidney disease, asthma, TIA Medications: B12, Advair, pantoprazole, Flexeril, [place], gabapentin, vitamin D, Coreg, Crestor, nitro, Plavix, ProAir air Allergies: Aspirin Patient states she is a cigarette smoker and she does partake in occasional EtOH , denies illicit drug use. TRAVEL OUTSIDE OF THE [place] IN LAST 30 DAYS: No - Related Data Allergies/Adverse Reactions: aspirin [Aspirin] Allergy (Verified 03/13/18 16:17) Past Medical History - General Information source: Patient - Social History Smoking Status: Current Every Day Smoker Chew tobacco use (# tins/day): No Frequency of alcohol use: Occasional Drug Abuse: None Lives with: Family Family History: CAD, Hypertension Patient has suicidal ideation: No Patient has homicidal ideation: No - Past Medical History Cardiac Medical History: Reports: Hx Hypercholesterolemia, Hx Hypertension Denies: Hx Coronary Artery Disease, Hx Heart Attack Pulmonary Medical History: Reports: Hx Asthma, Hx Pneumonia Denies: Hx Bronchitis, Hx COPD Neurological Medical History: Denies: Hx Cerebrovascular Accident, Hx Seizures Endocrine Medical History: Denies: Hx Diabetes Mellitus Type 1, Hx Diabetes Mellitus Type 2 Renal/ Medical History: Reports: Hx End Stage Renal Disease. Denies: Hx Peritoneal Dialysis GI Medical History: Denies: Hx Hepatitis, Hx Hiatal Hernia, Hx Ulcer Musculoskeletal Medical History: Reports Hx Arthritis - knee's, back, hips Psychiatric Medical History: Reports: Hx Depression Infectious Medical History: Denies: Hx Hepatitis Past Surgical History: Reports: Hx Appendectomy, Hx Hysterectomy, Hx Tonsillectomy. Denies: Hx Mastectomy, Hx Open Heart Surgery, Hx Pacemaker - Immunizations Hx Diphtheria, Pertussis, Tetanus Vaccination: Yes Review of Systems - Review of Systems Constitutional: denies: Chills, Fever EENT: See HPI Cardiovascular: See HPI Respiratory: See HPI Gastrointestinal: No symptoms reported Genitourinary: No symptoms reported Female Genitourinary: No symptoms reported Musculoskeletal: See HPI Skin: No symptoms reported Hematologic/Lymphatic: No symptoms reported Neurological/Psychological: See HPI Physical Exam - Vital signs Vitals: Temp Pulse BP Pulse Ox 97.4 F 114 H 119/91 H 100 03/13/18 15:56 03/13/18 15:56 03/13/18 15:56 03/13/18 15:56 - Notes Notes: GENERAL: Alert, interacts well. No acute distress. HEAD: Normocephalic, atraumatic. EYES: Pupils equal, round, and reactive to light. Extraocular movements intact. ENT: Oral mucosa moist, tongue midline. NECK: Full range of motion. Supple. Trachea midline. LUNGS: Clear to auscultation bilaterally, no wheezes, rales, or rhonchi. No respiratory distress. HEART: Tachycardic rate and rhythm. No murmur ABDOMEN: Soft, non-tender. Non-distended. Bowel sounds present in all 4 quadrants. EXTREMITIES: Moves all 4 extremities spontaneously. No edema, normal radial and dorsalis pedis pulses bilaterally. No cyanosis. 5 out of 5 strength all 4 extremities BACK: no cervical, thoracic, lumbar midline tenderness. No saddle anesthesia, normal distal neurovascular exam. NEUROLOGICAL: Alert and oriented x3. Normal speech. cranial nerves II through XII grossly intact. PSYCH: Normal affect, normal mood. SKIN: Warm, dry, normal turgor. No rashes or lesions noted. Course - Re-evaluation Re-evalutation: 03/13/18 19:46 Patient continues with shortness of breath and dull left-sided chest pain in the emergency room upon my examination patient continues to be tachycardic with a heart rate of 110. CTA ordered to rule out pulmonary embolism at this time. CTA negative, Trop negative. 03/13/18 22:03 Dr. Alarcon spoke with Dr. Redmond who will admit the pt for syncope. - Vital Signs Vital signs: Temp Pulse Resp BP Pulse Ox 98.3 F 92 20 108/72 97 03/14/18 03:36 03/14/18 03:36 03/14/18 03:36 03/14/18 03:36 03/14/18 03:36 - Laboratory Result Diagrams: 03/14/18 03:20 03/14/18 03:20 Laboratory results interpreted by me: 03/13/18 03/13/18 03/13/18 16:39 16:39 21:05 MCV 102 H MCH 36.1 H RDW 14.7 H Sodium 132.2 L 130.9 L Potassium 3.5 L Chloride 91 L 96 L Est GFR ( Amer) 53 L Est GFR (Non-Af Amer) 44 L 54 L Glucose 124 H Calcium 7.1 L Magnesium TIBC Ferritin Direct Bilirubin 0.6 H 0.6 H AST 128 H 89 H Alkaline Phosphatase 145 H Creatine Kinase 144 H Total Protein 4.9 L Albumin 2.7 L Lipase 17.4 L 03/13/18 03/13/18 21:05 21:05 MCV MCH RDW Sodium Potassium Chloride Est GFR ( Amer) Est GFR (Non-Af Amer) Glucose Calcium Magnesium 0.7 L* TIBC 160 L Ferritin 507.00 H Direct Bilirubin AST Alkaline Phosphatase Creatine Kinase Total Protein Albumin Lipase Discharge - Discharge Clinical Impression: Syncope Qualifiers: Syncope type: unspecified Qualified Code(s): R55 - Syncope and collapse Condition: Stable Disposition: ADMITTED OBSERVATION Admitting Provider: Davin Redmond Unit Admitted: Telemetry
--- NOTE | 2018-03-13 20:13 | EKG REPORT ---
SEVERITY:- OTHERWISE NORMAL ECG - SINUS TACHYCARDIA LOW VOLTAGE IN FRONTAL LEADS : Confirmed by: Matthew Cerna 13-Mar-2018 20:12:25
--- NOTE | 2018-03-13 20:13 | EKG REPORT ---
SEVERITY:- BORDERLINE ECG - SINUS TACHYCARDIA LOW VOLTAGE IN FRONTAL LEADS BORDERLINE T ABNORMALITIES, ANT-LAT LEADS : Confirmed by: Matthew Cerna 13-Mar-2018 20:12:41
--- NOTE | 2018-03-13 20:46 | RADIOLOGY REPORT (SQ) ---
EXAM DESCRIPTION: CTA CHEST COMPLETED DATE/TIME: 03/13/2018 8:21 pm REASON FOR STUDY: tachy, SOB COMPARISON: None. TECHNIQUE: CT scan of the chest performed using helical scanning technique with dynamic intravenous contrast injection. Images reviewed with lung, soft tissue and bone windows. Reconstructed coronal and sagittal MPR images reviewed. Additional 3 dimensional post-processing performed to develop Maximal Intensity Projection images (VT P). All images stored on PACS. All CT scanners at this facility use dose modulation, iterative reconstruction, and/or weight based d osing when appropriate to reduce radiation dose to as low as reasonably achievable (ALARA). [facility]: Dose Right [facility]: CareDose [facility]: Dose Right [facility]: Teradose 4D [facility]: Jingit CONTRAST TYPE AND DOSE: contrast/concentration: Isovue 350.00 mg/ml; Total Contrast Delivered: 66.0 ml; Total Saline Delivered: 107.0 ml Contrast bolus optimized for the pulmonary arteries. Not diagnostic for the aorta. RENAL FUNCTION: BUN 8 creatinine 1.3 RADIATION DOSE: CT Rad equipment meets quality standard of care and radiation dose reduction techniq ues were employed. CTDIvol: 14.3 - 29.8 mGy. DLP: 570 mGy-cm. . LIMITATIONS: None. FINDINGS: LUNGS AND PLEURA: No masses, infiltrates, or pneumothorax. No pleural effusions or pleura l calcifications. AORTA AND GREAT VESSELS: No aneurysm. Contrast bolus not optimized for the aorta. HEART: No pericardial effusion. No significant coronary artery calcifications. PULMONARY ARTERIES: No emboli visualized in the main pulmonary arteries or the segmental branches. HILAR AND MEDIASTINAL STRUCTURES: No identified masses or abnormal nodes. HARDWARE: None in the chest. UPPER ABDOMEN: The liver is diffusely hypodense. THYROID AND OTHER SOFT TISSUES: No masses. No adenopathy. BONES: No acute or significant finding. 3D MIPS: Confirm above findings. OTHER: No other significant finding. IMPRESSION: 1. There is no evidence of pulmonary emboli. 2. Fatty infiltration of the liver. COMMENT: Quality ID # [id number]: Final reports with documentation of one or more dose reduction techniques (e.g., Automated exposure control, adjustment of the mA and/or kV according to patient size, use of iterative reconstruction technique) TECHNICAL DOCUMENTATION: JOB ID: [id number] [email or web address]- All Rights Reserved Reading location - IP/workstation name: [email or web address]
[2018-03-13 21:25] LABS: ALANINE AMINOTRANSFERASE 38 U/L (9-52); ALBUMIN 2.7 g/dL (3.5-5.0); ALKALINE PHOSPHATASE 100 U/L (38-126); ANION GAP 9 (5-19); ASPARTATE AMINO TRANSFERASE 89 U/L (14-36); BILIRUBIN,DIRECT 0.6 mg/dL (0.0-0.4); BLOOD UREA NITROGEN 9 mg/dL (7-20); CALCIUM 7.1 mg/dL (8.4-10.2); CARBON DIOXIDE 26 mmol/L (22-30); CHLORIDE 96 mmol/L (98-107); GLUCOSE 90 mg/dL (75-110); LIPASE 17.4 U/L (23-300); POTASSIUM 3.5 mmol/L (3.6-5.0); SODIUM 130.9 mmol/L (137-145); TOTAL PROTEIN 4.9 g/dL (6.3-8.2)
[2018-03-13] MEDS ORDERED: MAG HYDROX/AL HYDROX/SIMETH SUSP 30 ML UDCUP PO PRN (22:06)
[2018-03-13] MEDS ORDERED: IPRATROPIUM/ALBUTEROL 0.5-2.5 MG/3 ML AMPUL NEB PRN (22:06)
[2018-03-13] MEDS ORDERED: NORMAL SALINE 1000 ML 1,000 ML IV PRN (22:15)
[2018-03-13 22:35] LABS: CREATINE KINASE 97 U/L (30-135); IRON(TIBC) 69.3 ug/dL (37-170); PHOSPHORUS 4.3 mg/dL (2.5-4.5)
[2018-03-13 22:41] LABS: ABSOLUTE RETICS # 0.038 10^6/uL (0.028-0.122); RETICULOCYTE COUNT (AUTO) 0.97 % (0.66-2.85)
[2018-03-13] MEDS ORDERED: LORAZEPAM 1 MG TABLET PO ONE (23:00)
[2018-03-13] MEDS ORDERED: CARVEDILOL 12.5 MG TABLET PO ONE (23:15)
[2018-03-13] MEDS ORDERED: ATORVASTATIN CALCIUM 10 MG TABLET PO ONE (23:15)
[2018-03-13] MEDS ORDERED: GABAPENTIN 300 MG CAPSULE PO ONE (23:15)
[2018-03-13] MEDS ORDERED: CLOPIDOGREL BISULFATE 75 MG TABLET PO ONE (23:15)
[2018-03-13] MEDS: MAGNESIUM SULFATE/D5W 1 GM/100 ML RTUPB IV SCH ×2 (23:19→23:26)
[2018-03-13 23:49] LABS: FOLATE 5.32 ng/mL (>2.76)
[2018-03-14] MEDS ORDERED: CARVEDILOL 6.25 MG TABLET ONE (01:52)
[2018-03-14] MEDS: MAGNESIUM SULFATE/D5W 1 GM/100 ML RTUPB IV SCH (01:56)
[2018-03-14 03:34] LABS: ABSOLUTE EOSINOPHILS # (AUTO) 0.1 10^3/uL (0.0-0.6); ABSOLUTE LYMPHOCYTES (AUTO) 2.2 10^3/uL (0.5-4.7); ABSOLUTE MONOCYTES (AUTO) 0.4 10^3/uL (0.1-1.4); ABSOLUTE NEUT (AUTO) 3.3 10^3/uL (1.7-8.2); BASOPHILS % (AUTO) 0.3 % (0-2); EOSINOPHILS % (AUTO) 1.4 % (0-6); HEMATOCRIT 31.5 % (36.0-47.0); LYMPHOCYTES % (AUTO) 36.4 % (13-45); MEAN CORPUSCULAR HEMOGLOBIN 35.8 pg (27.0-33.4); MEAN CORPUSCULAR VOLUME 102 fl (80-97); MONOCYTES % (AUTO) 6.7 % (3-13); PLATELET COUNT 136 10^3/uL (150-450); RED BLOOD COUNT 3.08 10^6/uL (3.72-5.28); RED CELL DISTRIBUTION WIDTH 14.7 % (11.5-14.0); SEGMENTED NEUTROPHILS % (AUTO) 55.2 % (42-78); TOTAL CELLS COUNTED % (AUTO) 100 %; WHITE BLOOD COUNT 6.1 10^3/uL (4.0-10.5)
[2018-03-14 03:47] LABS: ALANINE AMINOTRANSFERASE 36 U/L (9-52); ALBUMIN 2.6 g/dL (3.5-5.0); ALKALINE PHOSPHATASE 103 U/L (38-126); ANION GAP 9 (5-19); ASPARTATE AMINO TRANSFERASE 94 U/L (14-36); BILIRUBIN,DIRECT 0.4 mg/dL (0.0-0.4); BILIRUBIN,TOTAL 0.7 mg/dL (0.2-1.3); BLOOD UREA NITROGEN 8 mg/dL (7-20); CALCIUM 7.3 mg/dL (8.4-10.2); CARBON DIOXIDE 26 mmol/L (22-30); CHLORIDE 96 mmol/L (98-107); CREATINE KINASE 106 U/L (30-135); GLUCOSE 149 mg/dL (75-110); SODIUM 130.9 mmol/L (137-145); TOTAL PROTEIN 4.6 g/dL (6.3-8.2)
[2018-03-14 03:50] LABS: CREATINE KINASE MB 1.3 ng/mL (<4.55); POTASSIUM 2.7 mmol/L (3.6-5.0); TROPONIN I 0.022 ng/mL
[2018-03-14] MEDS: POTASSIUM CHLORIDE 20 MEQ/50 ML RTU IV SCH ×2 (04:29→06:19)
[2018-03-14] MEDS ORDERED: POTASSIUM CHLORIDE 10 MEQ CAPSULE.ER PO ONE (04:30)
[2018-03-14] MEDS ORDERED: CALCIUM GLUCONATE 1,000 MG in DEXTROSE 5%-WATER 50 ML IV ONE (04:45)
--- NOTE | 2018-03-14 04:45 | PDOC H&P ---
History of Present Illness Admission Date/PCP: 03/13/18 22:30 MOLLY CORREIA MD Patient complains of: Near syncope. History of Present Illness: KOTA DELAROSA is a 62 year old female with a past medical history of hypertension, COPD, dyslipidemia, TIA, pancreatitis with alcohol and tobacco dependence. She presents with nausea and vomiting of gastric content, weakness and falls. In the emergency room patient states she has fallen several times after standing from a sitting or supine position. She denies seizure, chest pain, palpitations, diaphoresis or loss of consciousness. In the emergency room she is found to have hyponatremia, hypokalemia and hypoalbuminemia. She is referred to the hospitalist for admission. Patient is unclear of her medication regiment and refuses to quantify her daily alcohol consumption. A family member is frustrated regarding her alcohol habit and leaves the room reminding her of the importance of honesty. She is currently without chest pain palpitations, nausea or vomiting. Past Medical History Cardiac Medical History: Reports: Hyperlipidema, Hypertension Denies: Coronary Artery Disease, Myocardial Infarction Pulmonary Medical History: Reports: Asthma, Pneumonia Denies: Bronchitis, Chronic Obstructive Pulmonary Disease (COPD) Neurological Medical History: Reports: Other - TIA Denies: Seizures Endocrine Medical History: Denies: Diabetes Mellitus Type 1, Diabetes Mellitus Type 2 Renal/ Medical History: Reports: End Stage Renal Disease GI Medical History: Denies: Hepatitis, Hiatal Hernia Musculoskeltal Medical History: Reports: Arthritis - knee's, back, hips Psychiatric Medical History: Reports: Alcohol Dependency, Tobacco Dependency Denies: Depression Hematology: Denies: Anemia, Sickle Cell Disease Past Surgical History Past Surgical History: Reports: Appendectomy, Hysterectomy, Tonsillectomy Denies: Amputation, Mastectomy, Pacemaker Social History Information Source: Patient, [facility] Records Lives with: Family Smoking Status: Current Every Day Smoker Cigarettes Packs Per Day: 0.5 Number of Years Smokin Last Time Smoked: 03/13/18 Frequency of Alcohol Use: Heavy Hx Recreational Drug Use: No Drugs: None Hx Prescription Drug Abuse: No - Advance Directive Resuscitation Status: Full Code Family History Family History: CAD, Hypertension Parental Family History Reviewed: Yes Children Family History Reviewed: Yes Sibling(s) Family History Reviewed.: Yes Medication/Allergy Home Medications: Clopidogrel Bisulfate [Plavix 75 mg Tablet] 75 mg PO DAILY 10/29/15 Cyclobenzaprine HCl [Flexeril 10 mg Tablet] 10 mg PO TIDP PRN 10/29/15 Pantoprazole Sodium [Protonix] 40 mg PO BID 10/29/15 Fluticasone/Salmeterol [Advair 250-50 Diskus 14 Dose/Diskus] 1 puff IH BID 10/28 Nitroglycerin [Nitrostat] 1 tab SL PRN PRN 10/28/17 Rosuvastatin Calcium [Crestor] 10 mg PO QHS 10/28/17 Ubidecarenone [Co Q-10] 100 mg PO DAILY 10/28/17 Cholecalciferol (Vitamin D3) [Vitamin D3 2000 unit Tablet] 4,000 units PO DAILY 10/29/17 Cyanocobalamin (Vitamin B-12) [Vitamin B-12 Inj 1000 Mcg/1 ml Vial] 1,000 mcg IM Q14D 10/29/17 Gabapentin Enacarbil [Horizant] 300 mg PO BID 10/29/17 Krill/Armstrong-3/Dha/Epa/Lipids [Krill Oil 300 mg Softgel] 1 each PO DAILY Albuterol Sulfate [Proair HFA Inhalation Aerosol 8.5 gm MDI] 1 puff IH PRN PRN 03/14/18 Carvedilol [Coreg 12.5 mg Tablet] 12.5 mg PO BID 03/14/18 Hydrocodone/Acetaminophen [[place] 5-325 Tablet] 1 tab PO QIDP PRN 03/14/18 Allergies/Adverse Reactions: aspirin [Aspirin] Allergy (Verified 03/13/18 16:17) Review of Systems Constitutional: PRESENT: as per HPI, anorexia, fatigue, weakness. ABSENT: fever (s), headache(s) Eyes: ABSENT: visual disturbances Ears: ABSENT: hearing changes Cardiovascular: ABSENT: chest pain, dyspnea on exertion, edema, orthropnea, palpitations Respiratory: PRESENT: cough, dyspnea. ABSENT: hemoptysis, sputum Gastrointestinal: PRESENT: nausea, vomiting. ABSENT: abdominal pain, constipation, diarrhea, hematemesis, hematochezia Genitourinary: ABSENT: dysuria, hematuria Musculoskeletal: ABSENT: joint swelling Integumentary: ABSENT: rash, wounds Neurological: PRESENT: abnormal gait, dizziness, frequent falls, weakness. ABSENT: abnormal speech, confusion, focal weakness, syncope Psychiatric: ABSENT: anxiety, depression, homidical ideation, suicidal ideation Endocrine: ABSENT: cold intolerance, heat intolerance, polydipsia, polyuria Hematologic/Lymphatic: ABSENT: easy bleeding, easy bruising Physical Exam Vital Signs: Temp Pulse Resp BP Pulse Ox 98.3 F 92 20 108/72 97 03/14/18 03:36 03/14/18 03:36 03/14/18 03:36 03/14/18 03:36 03/14/18 03:36 Intake & Output 03/12/18 03/13/18 03/14/18 11:59 11:59 11:59 Intake Total 896 Balance 896 Weight 63.1 kg General appearance: PRESENT: mild distress, thin. ABSENT: cooperative Head exam: PRESENT: atraumatic, normocephalic Eye exam: PRESENT: conjunctiva pink, EOMI, PERRLA. ABSENT: scleral icterus Ear exam: PRESENT: normal external ear exam Mouth exam: PRESENT: moist, tongue midline Neck exam: ABSENT: carotid bruit, JVD, lymphadenopathy, thyromegaly Respiratory exam: PRESENT: crackles. ABSENT: rales, rhonchi, wheezes Cardiovascular exam: PRESENT: RRR. ABSENT: diastolic murmur, rubs, systolic murmur Pulses: PRESENT: normal dorsalis pedis pul Vascular exam: PRESENT: normal capillary refill GI/Abdominal exam: PRESENT: normal bowel sounds, soft. ABSENT: distended, guarding, mass, organolmegaly, rebound, tenderness Rectal exam: PRESENT: deferred Extremities exam: PRESENT: full ROM. ABSENT: calf tenderness, clubbing, pedal edema, tenderness Musculoskeletal exam: PRESENT: other - Global muscular atrophy Neurological exam: PRESENT: alert, awake, oriented to person, oriented to place , oriented to time, oriented to situation, CN II-XII grossly intact. ABSENT: motor sensory deficit Psychiatric exam: PRESENT: anxious Skin exam: PRESENT: dry, intact, warm. ABSENT: cyanosis, rash Results Laboratory Results: 03/14/18 03:20 03/14/18 03:20 03/14/18 03/14/18 03:20 03:20 WBC 6.1 RBC 3.08 L Hgb 11.0 L D Hct 31.5 L MCV 102 H MCH 35.8 H MCHC 35.0 RDW 14.7 H Plt Count 136 L Seg Neutrophils % 55.2 Lymphocytes % 36.4 Monocytes % 6.7 Eosinophils % 1.4 Basophils % 0.3 Absolute Neutrophils 3.3 Absolute Lymphocytes 2.2 Absolute Monocytes 0.4 Absolute Eosinophils 0.1 Absolute Basophils 0.0 Sodium 130.9 L Potassium 2.7 L* Chloride 96 L Carbon Dioxide 26 Anion Gap 9 BUN 8 Creatinine 1.04 Est GFR ( Amer) > 60 Est GFR (Non-Af Amer) 54 L Glucose 149 H Calcium 7.3 L Total Bilirubin 0.7 AST 94 H ALT 36 Alkaline Phosphatase 103 Total Protein 4.6 L Albumin 2.6 L 03/14/18 03/14/18 03:20 03:20 Creatine Kinase 106 CK-MB (CK-2) 1.30 Troponin I 0.022 Impressions: Chest X-Ray 03/13/18 00:00 IMPRESSION: 1. No ACUTE RADIOGRAPHIC FINDING IN THE CHEST. Chest/Abdomen CTA 03/13/18 19:39 IMPRESSION: 1. There is no evidence of pulmonary emboli. 2. Fatty infiltration of the liver. Assessment & Plan - Diagnosis (1) Pre-syncope Is this a current diagnosis for this admission?: Yes Plan: Likely multifactorial secondary to Wernicke's encephalopathy and hypomagnesemia. Follow-up telemetry, chemistry and physical therapy evaluation (2) Wernicke's disease with cerebellar manifestation Is this a current diagnosis for this admission?: Yes Plan: Thiamine and folate initiated, follow-up physical therapy consult, (3) Alcohol dependence Is this a current diagnosis for this admission?: Yes Plan: Thiamine, folate and Ativan as needed (4) Hypokalemia Is this a current diagnosis for this admission?: Yes Plan: Eval for hypomagnesemia (5) Hypomagnesemia Is this a current diagnosis for this admission?: Yes Plan: Secondary to alcoholism and poor p.o. intake. Repletion and reevaluation of chemistry (6) Gait disorder Is this a current diagnosis for this admission?: Yes Plan: Likely secondary to Yrn's. Physical therapy eval - Time Time Spent: 50 to 70 Minutes - Inpatient Certification Medical Necessity: Need Close Monitoring Due to Risk of Patient Decompensation
[2018-03-14] MEDS: HEPARIN SOD (PORCINE) 5,000 UNIT/ML 1 ML SYRINGE SUBCUT SCH ×3 (05:05→21:27)
[2018-03-14] MEDS: LANSOPRAZOLE 30 MG TAB.RAP.DR PO SCH (05:06)
[2018-03-14] MEDS ORDERED: CALCIUM GLUCONATE 1000 MG/10 ML INJ IV ONE (05:22)
[2018-03-14] MEDS: FLUTICASONE NASAL SPRAY 50 MCG/SPRY 120 SPRAY/16 GM NASL SCH (09:51)
[2018-03-14] MEDS: DOCUSATE SODIUM 100 MG CAPSULE PO SCH (09:51)
[2018-03-14] MEDS: CALCIUM CARBONATE 250 MG/VITAMIN D3 125 UNIT TABLET PO SCH (09:51)
[2018-03-14] MEDS: CARVEDILOL 12.5 MG TABLET PO SCH ×2 (09:52→21:33)
[2018-03-14] MEDS: THIAMINE HCL 100 MG, FOLIC ACID 1 MG in NORMAL SALINE 250 ML IV SCH (09:52)
[2018-03-14 10:07] LABS: CREATINE KINASE MB 1.24 ng/mL (<4.55); TROPONIN I 0.02 ng/mL
[2018-03-14 11:23] LABS: APPEARANCE,URINE CLEAR; BILIRUBIN,URINE NEGATIVE (NEGATIVE); COLOR,URINE YELLOW; GLUCOSE, URINE NEGATIVE (NEGATIVE); KETONES,URINE NEGATIVE (NEGATIVE); LEUKOCYTE ESTERASE,URINE TRACE (NEGATIVE); NITRITE,URINE NEGATIVE (NEGATIVE); PROTEIN,URINE NEGATIVE (NEGATIVE); URINE SPECIFIC GRAVITY 1.015; UROBILINOGEN,URINE NEGATIVE mg/dL (<2.0)
[2018-03-14 11:43] LABS: URINE AMPHETAMINES SCREEN NEGATIVE; URINE BARBITURATES SCREEN NEGATIVE; URINE BENZODIAZEPINES SCREEN NEGATIVE; URINE COCAINE SCREEN NEGATIVE; URINE MARIJUANA (THC) SCREEN NEGATIVE; URINE METHADONE SCREEN NEGATIVE; URINE PHENCYCLIDINE SCREEN NEGATIVE
[2018-03-14] MEDS: POTASSI CL 20 MEQ/50 ML RIDER 20 MEQ/50 ML RTUPB IV SCH ×3 (11:52→16:32)
--- NOTE | 2018-03-14 12:01 | PDOC PROGRESS REPORT ---
Subjective Progress Note for:: 03/14/18 Subjective:: 03/14/2018-the patient is resting comfortably. She reports increased shortness of breath with limited activity. She reports feeling lightheaded when she stands. Reason For Visit: CHEST PAIN HTN TOBACCO ETOH ABUSE Physical Exam Vital Signs: Temp Pulse Resp BP Pulse Ox 97.6 F 87 14 128/85 H 97 03/14/18 08:27 03/14/18 09:53 03/14/18 09:53 03/14/18 08:27 03/14/18 09:53 Intake & Output 03/13/18 03/14/18 03/15/18 06:59 06:59 06:59 Intake Total 1042 1000 Balance 1042 1000 Weight 64 kg General appearance: PRESENT: no acute distress, well-developed Ear exam: PRESENT: normal external ear exam Mouth exam: PRESENT: moist, tongue midline Respiratory exam: PRESENT: clear to auscultation roxie, symmetrical, unlabored. ABSENT: prolonged expiratory phas, rales, stridor, wheezes Cardiovascular exam: PRESENT: RRR, +S1, +S2 GI/Abdominal exam: PRESENT: normal bowel sounds, soft. ABSENT: distended, guarding, tenderness Neurological exam: PRESENT: alert, awake, oriented to person, oriented to place , oriented to time, oriented to situation, CN II-XII grossly intact Psychiatric exam: PRESENT: appropriate affect, normal mood Results Laboratory Results: 03/14/18 03:20 03/14/18 03:20 03/14/18 03/14/18 03/14/18 03:20 03:20 07:40 WBC 6.1 RBC 3.08 L Hgb 11.0 L D Hct 31.5 L MCV 102 H MCH 35.8 H MCHC 35.0 RDW 14.7 H Plt Count 136 L Seg Neutrophils % 55.2 Lymphocytes % 36.4 Monocytes % 6.7 Eosinophils % 1.4 Basophils % 0.3 Absolute Neutrophils 3.3 Absolute Lymphocytes 2.2 Absolute Monocytes 0.4 Absolute Eosinophils 0.1 Absolute Basophils 0.0 Sodium 130.9 L Potassium 2.7 L* Chloride 96 L Carbon Dioxide 26 Anion Gap 9 BUN 8 Creatinine 1.04 Est GFR ( Amer) > 60 Est GFR (Non-Af Amer) 54 L Glucose 149 H Calcium 7.3 L Magnesium Total Bilirubin 0.7 AST 94 H ALT 36 Alkaline Phosphatase 103 Total Protein 4.6 L Albumin 2.6 L Urine Color YELLOW Urine Appearance CLEAR Urine pH 5.0 Ur Specific [place] 1.015 Urine Protein NEGATIVE Urine Glucose (UA) NEGATIVE Urine Ketones NEGATIVE Urine Blood NEGATIVE Urine Nitrite NEGATIVE Ur Leukocyte Esterase TRACE H Urine WBC (Auto) 2 Urine RBC (Auto) 0 03/14/18 09:08 WBC RBC Hgb Hct MCV MCH MCHC RDW Plt Count Seg Neutrophils % Lymphocytes % Monocytes % Eosinophils % Basophils % Absolute Neutrophils Absolute Lymphocytes Absolute Monocytes Absolute Eosinophils Absolute Basophils Sodium Potassium Chloride Carbon Dioxide Anion Gap BUN Creatinine Est GFR ( Amer) Est GFR (Non-Af Amer) Glucose Calcium Magnesium 2.1 D Total Bilirubin AST ALT Alkaline Phosphatase Total Protein Albumin Urine Color Urine Appearance Urine pH Ur Specific [place] Urine Protein Urine Glucose (UA) Urine Ketones Urine Blood Urine Nitrite Ur Leukocyte Esterase Urine WBC (Auto) Urine RBC (Auto) 03/14/18 03/14/18 03/14/18 03:20 03:20 09:08 Creatine Kinase 106 CK-MB (CK-2) 1.30 1.24 Troponin I 0.022 0.020 03/14/18 09:08 Creatine Kinase 87 CK-MB (CK-2) Troponin I Impressions: Chest X-Ray 03/13/18 00:00 IMPRESSION: 1. No ACUTE RADIOGRAPHIC FINDING IN THE CHEST. Chest/Abdomen CTA 03/13/18 19:39 IMPRESSION: 1. There is no evidence of pulmonary emboli. 2. Fatty infiltration of the liver. Assessment & Plan - Diagnosis (1) Gait disorder Is this a current diagnosis for this admission?: Yes Plan: 03/14/2018-the patient reports that she has frequent falls. She states that she falls every day. Possible etiologies include alcohol related encephalopathy with cerebellar component. She may also have alcohol related polyneuropathy. Physical therapy will assess the patient. I have ordered orthostatic checks to rule out postural hypotension. (2) Hypokalemia Is this a current diagnosis for this admission?: Yes Plan: 03/14/2018-potassium dropped to less than 3 today. I have ordered 60 mEq of potassium IV and initiated oral potassium therapy. (3) Hypomagnesemia Is this a current diagnosis for this admission?: Yes Plan: 03/14/2018-with IV magnesium the patient's serum magnesium is normal today. (4) Pre-syncope Is this a current diagnosis for this admission?: Yes Plan: 03/14/2018-as noted above we will check orthostatic vital signs. The patient actually falls as opposed to having true syncopal episodes. (5) Wernicke's disease with cerebellar manifestation Is this a current diagnosis for this admission?: Yes Plan: 03/14/2018-patient has a long history of alcohol dependence. It is most likely that this is the primary etiology of her falls. Workup for additional etiologies ongoing as above. (6) Alcohol dependence Qualifiers: Substance use status: other alcohol-induced disorder Qualified Code(s): F10.288 - Alcohol dependence with other alcohol-induced disorder Is this a current diagnosis for this admission?: Yes Plan: The patient refused to quantify her alcohol intake. Based on our findings working up the falls might be able to give her a specific etiology such as late effects of alcohol. We certainly will encourage cessation. - Time Time Spent with patient: 15-24 minutes Medications reviewed and adjusted accordingly: Yes
[2018-03-14] MEDS: MAGNESIUM OXIDE 400 MG TABLET PO SCH (13:21)
[2018-03-14] MEDS: ACETAMINOPHEN 325 MG TABLET PO PRN (14:14)
[2018-03-14] MEDS: GABAPENTIN 300 MG CAPSULE PO SCH (17:14)
[2018-03-14 20:02] LABS: ANION GAP 12 (5-19); BLOOD UREA NITROGEN 6 mg/dL (7-20); CALCIUM 8.2 mg/dL (8.4-10.2); CARBON DIOXIDE 19 mmol/L (22-30); CHLORIDE 104 mmol/L (98-107); GLUCOSE 121 mg/dL (75-110); SODIUM 134.8 mmol/L (137-145)
[2018-03-14 20:12] LABS: CREATINE KINASE MB 1.39 ng/mL (<4.55); TROPONIN I 0.014 ng/mL
[2018-03-14 20:21] LABS: POTASSIUM 5.3 mmol/L (3.6-5.0)
[2018-03-14] MEDS: ATORVASTATIN CALCIUM 10 MG TABLET PO SCH (21:33)
[2018-03-14] MEDS: CLOPIDOGREL BISULFATE 75 MG TABLET PO SCH (21:34)
[2018-03-14] MEDS: LORAZEPAM INJ 2 MG/1 ML VIAL IV PRN (21:50)
[2018-03-15] MEDS: LANSOPRAZOLE 30 MG TAB.RAP.DR PO SCH (05:33)
[2018-03-15 05:53] LABS: HEMATOCRIT 31.8 % (36.0-47.0); HEMOGLOBIN 11.1 g/dL (12.0-15.5); MEAN CORPUSCULAR HEMOGLOBIN 36.4 pg (27.0-33.4); MEAN CORPUSCULAR VOLUME 104 fl (80-97); PLATELET COUNT 136 10^3/uL (150-450); RED BLOOD COUNT 3.06 10^6/uL (3.72-5.28); RED CELL DISTRIBUTION WIDTH 14.8 % (11.5-14.0)
[2018-03-15] MEDS: DOCUSATE SODIUM 100 MG CAPSULE PO SCH (10:32)
[2018-03-15] MEDS: MAGNESIUM OXIDE 400 MG TABLET PO SCH (10:32)
[2018-03-15] MEDS: CARVEDILOL 12.5 MG TABLET PO SCH ×2 (10:32→21:14)
[2018-03-15] MEDS: FLUTICASONE NASAL SPRAY 50 MCG/SPRY 120 SPRAY/16 GM NASL SCH (10:32)
[2018-03-15] MEDS: THIAMINE HCL 100 MG, FOLIC ACID 1 MG in NORMAL SALINE 250 ML IV SCH (10:33)
[2018-03-15] MEDS: CALCIUM CARBONATE 250 MG/VITAMIN D3 125 UNIT TABLET PO SCH (10:34)
--- NOTE | 2018-03-15 10:46 | PDOC PROGRESS REPORT ---
Subjective Progress Note for:: 03/15/18 Subjective:: 03/14/2018-the patient is resting comfortably. She reports increased shortness of breath with limited activity. She reports feeling lightheaded when she stands. 03/15/2018-new complaint is burning when urinating with traces of blood. She still complains of discomfort on the left chest. She feels slightly better walking but not completely without symptoms. Reason For Visit: CHEST PAIN HTN TOBACCO ETOH ABUSE Physical Exam Vital Signs: Temp Pulse Resp BP Pulse Ox 98.1 F 95 17 155/104 H 98 03/15/18 07:42 03/15/18 07:48 03/15/18 07:48 03/15/18 08:17 03/15/18 07:48 Intake & Output 03/14/18 03/15/18 03/16/18 06:59 06:59 06:59 Intake Total 1042 2539.2 Output Total 2651 Balance 1042 -111.8 Weight 64 kg 66.8 kg General appearance: PRESENT: no acute distress, cooperative, well-developed Respiratory exam: PRESENT: clear to auscultation roxie, symmetrical, unlabored. ABSENT: rales, rhonchi, wheezes Cardiovascular exam: PRESENT: RRR, +S1, +S2, systolic murmur - 2/6 GI/Abdominal exam: PRESENT: normal bowel sounds, soft. ABSENT: distended, guarding, tenderness Musculoskeletal exam: PRESENT: normal inspection Neurological exam: PRESENT: alert, awake, oriented to person, oriented to place , oriented to time, oriented to situation, CN II-XII grossly intact Psychiatric exam: PRESENT: appropriate affect, normal mood Results Laboratory Results: 03/15/18 05:22 03/14/18 18:30 03/14/18 03/14/18 03/14/18 07:40 09:08 18:30 WBC RBC Hgb Hct MCV MCH MCHC RDW Plt Count Sodium 134.8 L Potassium 5.3 H D Chloride 104 Carbon Dioxide 19 L Anion Gap 12 BUN 6 L Creatinine 0.84 Est GFR ( Amer) > 60 Est GFR (Non-Af Amer) > 60 Glucose 121 H Calcium 8.2 L Magnesium 2.1 D 1.8 Urine Color YELLOW Urine Appearance CLEAR Urine pH 5.0 Ur Specific [place] 1.015 Urine Protein NEGATIVE Urine Glucose (UA) NEGATIVE Urine Ketones NEGATIVE Urine Blood NEGATIVE Urine Nitrite NEGATIVE Ur Leukocyte Esterase TRACE H Urine WBC (Auto) 2 Urine RBC (Auto) 0 03/15/18 03/15/18 05:22 05:22 WBC 4.0 RBC 3.06 L Hgb 11.1 L Hct 31.8 L MCV 104 H MCH 36.4 H MCHC 35.0 RDW 14.8 H Plt Count 136 L Sodium Potassium Chloride Carbon Dioxide Anion Gap BUN Creatinine Est GFR ( Amer) Est GFR (Non-Af Amer) Glucose Calcium Magnesium 1.4 L Urine Color Urine Appearance Urine pH Ur Specific [place] Urine Protein Urine Glucose (UA) Urine Ketones Urine Blood Urine Nitrite Ur Leukocyte Esterase Urine WBC (Auto) Urine RBC (Auto) 03/14/18 03/14/18 03/14/18 03:20 03:20 09:08 Creatine Kinase 106 CK-MB (CK-2) 1.30 1.24 Troponin I 0.022 0.020 03/14/18 03/14/18 09:08 18:30 Creatine Kinase 87 CK-MB (CK-2) 1.39 Troponin I 0.014 Impressions: Chest X-Ray 03/13/18 00:00 IMPRESSION: 1. No ACUTE RADIOGRAPHIC FINDING IN THE CHEST. Chest/Abdomen CTA 03/13/18 19:39 IMPRESSION: 1. There is no evidence of pulmonary emboli. 2. Fatty infiltration of the liver. Assessment & Plan - Diagnosis (1) Gait disorder Is this a current diagnosis for this admission?: Yes Plan: 03/14/2018-the patient reports that she has frequent falls. She states that she falls every day. Possible etiologies include alcohol related encephalopathy with cerebellar component. She may also have alcohol related polyneuropathy. Physical therapy will assess the patient. I have ordered orthostatic checks to rule out postural hypotension. 03/15/2018-physical therapy is working with the patient. She still has out of bed with assist. Some of this could be due to orthostasis. (2) Hypokalemia Is this a current diagnosis for this admission?: Yes Plan: 03/14/2018-potassium dropped to less than 3 today. I have ordered 60 mEq of potassium IV and initiated oral potassium therapy. 03/15/2018-aggressively corrected yesterday. Slightly high today. No intervention. Recheck in the morning. (3) Hypomagnesemia Is this a current diagnosis for this admission?: Yes Plan: 03/14/2018-with IV magnesium the patient's serum magnesium is normal today. 03/15/2018-I will administer another 2 g of magnesium sulfate IV. She has been started on oral magnesium supplement as well. Recheck magnesium tomorrow. (4) Pre-syncope Is this a current diagnosis for this admission?: Yes Plan: 03/14/2018-as noted above we will check orthostatic vital signs. The patient actually falls as opposed to having true syncopal episodes. 03/15/2018-blood pressure still variable. Sometimes systolic is high. She was orthostatic yesterday. We will monitor her. (5) Wernicke's disease with cerebellar manifestation Is this a current diagnosis for this admission?: Yes Plan: 03/14/2018-patient has a long history of alcohol dependence. It is most likely that this is the primary etiology of her falls. Workup for additional etiologies ongoing as above. 03/15/2018-continue thiamine for now. (6) Alcohol dependence Qualifiers: Substance use status: other alcohol-induced disorder Qualified Code(s): F10.288 - Alcohol dependence with other alcohol-induced disorder Is this a current diagnosis for this admission?: Yes Plan: The patient refused to quantify her alcohol intake. Based on our findings working up the falls might be able to give her a specific etiology such as late effects of alcohol. We certainly will encourage cessation. 03/15/2018-continued abstinence. Tachycardia and transiently elevated pressures could be subtle signs of withdrawal. Monitor closely. - Time Time Spent with patient: 25-34 minutes Medications reviewed and adjusted accordingly: Yes
[2018-03-15] MEDS: NICOTINE 14 MG/24 HR PATCH.TD24 TD SCH (11:06)
[2018-03-15 11:23] LABS: APPEARANCE,URINE TURBID; BILIRUBIN,URINE NEGATIVE (NEGATIVE); COLOR,URINE YELLOW; GLUCOSE, URINE NEGATIVE (NEGATIVE); KETONES,URINE NEGATIVE (NEGATIVE); LEUKOCYTE ESTERASE,URINE LARGE (NEGATIVE); NITRITE,URINE NEGATIVE (NEGATIVE); PROTEIN,URINE 30 mg/dL (NEGATIVE); URIC ACID CRYSTALS,URINE MODERATE /HPF; URINE SPECIFIC GRAVITY 1.008; UROBILINOGEN,URINE NEGATIVE mg/dL (<2.0)
[2018-03-15 11:59] LABS: ANION GAP 10 (5-19); BLOOD UREA NITROGEN 4 mg/dL (7-20); CALCIUM 8.6 mg/dL (8.4-10.2); CARBON DIOXIDE 22 mmol/L (22-30); CHLORIDE 107 mmol/L (98-107); GLUCOSE 113 mg/dL (75-110); POTASSIUM 4.6 mmol/L (3.6-5.0); SODIUM 138.7 mmol/L (137-145)
[2018-03-15] MEDS: MAGNESIUM SULFATE/D5W 1 GM/100 ML RTUPB IV SCH ×2 (12:06→14:21)
[2018-03-15] MEDS: GABAPENTIN 300 MG CAPSULE PO SCH (17:58)
[2018-03-15] MEDS: ACETAMINOPHEN 325 MG TABLET PO PRN (18:00)
[2018-03-15] MEDS: CLOPIDOGREL BISULFATE 75 MG TABLET PO SCH (21:14)
[2018-03-15] MEDS: ATORVASTATIN CALCIUM 10 MG TABLET PO SCH (21:14)
[2018-03-15] MEDS: LORAZEPAM INJ 2 MG/1 ML VIAL IV PRN (21:25)
[2018-03-16] MEDS: ACETAMINOPHEN 325 MG TABLET PO PRN ×2 (04:12→16:17)
[2018-03-16] MEDS: LANSOPRAZOLE 30 MG TAB.RAP.DR PO SCH (05:24)
[2018-03-16 05:38] LABS: ALANINE AMINOTRANSFERASE 37 U/L (9-52); ALBUMIN 2.9 g/dL (3.5-5.0); ALKALINE PHOSPHATASE 114 U/L (38-126); ANION GAP 8 (5-19); ASPARTATE AMINO TRANSFERASE 85 U/L (14-36); BILIRUBIN,DIRECT 0.4 mg/dL (0.0-0.4); BILIRUBIN,TOTAL 0.7 mg/dL (0.2-1.3); BLOOD UREA NITROGEN 3 mg/dL (7-20); CARBON DIOXIDE 29 mmol/L (22-30); CHLORIDE 100 mmol/L (98-107); GLUCOSE 110 mg/dL (75-110); POTASSIUM 4.6 mmol/L (3.6-5.0); SODIUM 136.9 mmol/L (137-145); TOTAL PROTEIN 5.3 g/dL (6.3-8.2)
[2018-03-16] MEDS: CALCIUM CARBONATE 250 MG/VITAMIN D3 125 UNIT TABLET PO SCH (10:05)
[2018-03-16] MEDS: NICOTINE 14 MG/24 HR PATCH.TD24 TD SCH (10:06)
[2018-03-16] MEDS: MAGNESIUM OXIDE 400 MG TABLET PO SCH (10:06)
[2018-03-16] MEDS: CARVEDILOL 12.5 MG TABLET PO SCH ×2 (10:10→21:21)
[2018-03-16] MEDS: FLUTICASONE NASAL SPRAY 50 MCG/SPRY 120 SPRAY/16 GM NASL SCH (10:13)
[2018-03-16] MEDS: THIAMINE HCL 100 MG, FOLIC ACID 1 MG in NORMAL SALINE 250 ML IV SCH (10:27)
[2018-03-16] MEDS: DOCUSATE SODIUM 100 MG CAPSULE PO SCH (10:29)
[2018-03-16] MEDS ORDERED: CEFTRIAXONE 1 GM/D5W RTU 1 GM/50 ML RTUPB IV SCH (16:00)
--- NOTE | 2018-03-16 16:02 | PDOC PROGRESS REPORT ---
Subjective Progress Note for:: 03/16/18 - seen on rounds Subjective:: state she feels fine, c/o urinary frequency and burning. discussed about her blood pressure issues- states she's been having syncopal episodes for over a year now. states she's been to center consultant last. states her PCP has changed her medications many times in the past. Reason For Visit: ORTHOSTASIS Physical Exam Vital Signs: Temp Pulse Resp BP Pulse Ox 98.9 F 93 12 133/96 H 98 03/16/18 11:41 03/16/18 14:00 03/16/18 11:41 03/16/18 11:41 03/16/18 11:41 Intake & Output 03/15/18 03/16/18 03/17/18 06:59 06:59 06:59 Intake Total 459 876 Output Total 650 700 Balance -191 176 Weight 147 lb 4.301 oz General appearance: PRESENT: no acute distress Head exam: PRESENT: atraumatic, normocephalic Eye exam: PRESENT: EOMI, PERRLA. ABSENT: scleral icterus Ear exam: PRESENT: normal external ear exam Mouth exam: PRESENT: tongue midline Neck exam: ABSENT: tracheal deviation Respiratory exam: PRESENT: clear to auscultation roixe, symmetrical. ABSENT: decreased breath sounds Cardiovascular exam: PRESENT: +S1, +S2 Pulses: PRESENT: +2 pedal pulses bilateral GI/Abdominal exam: PRESENT: normal bowel sounds, soft. ABSENT: tenderness Extremities exam: ABSENT: pedal edema Neurological exam: PRESENT: alert, awake, oriented to person, oriented to place , oriented to time, oriented to situation, CN II-XII grossly intact Skin exam: PRESENT: dry, warm Results Laboratory Results: 03/16/18 04:46 03/16/18 04:46 Sodium 136.9 L Potassium 4.6 Chloride 100 Carbon Dioxide 29 Anion Gap 8 BUN 3 L Creatinine 0.80 Est GFR ( Amer) > 60 Est GFR (Non-Af Amer) > 60 Glucose 110 Calcium 9.0 Magnesium 1.6 Total Bilirubin 0.7 AST 85 H ALT 37 Alkaline Phosphatase 114 Total Protein 5.3 L Albumin 2.9 L Impressions: Chest X-Ray 03/13/18 00:00 IMPRESSION: 1. No ACUTE RADIOGRAPHIC FINDING IN THE CHEST. Chest/Abdomen CTA 03/13/18 19:39 IMPRESSION: 1. There is no evidence of pulmonary emboli. 2. Fatty infiltration of the liver. Assessment & Plan - Diagnosis (1) Alcohol dependence Qualifiers: Substance use status: other alcohol-induced disorder Qualified Code(s): F10.288 - Alcohol dependence with other alcohol-induced disorder Is this a current diagnosis for this admission?: Yes (2) Hyponatremia Is this a current diagnosis for this admission?: Yes (3) Dyslipidemia Is this a current diagnosis for this admission?: Yes (4) Essential hypertension Is this a current diagnosis for this admission?: Yes (5) Tobacco abuse Is this a current diagnosis for this admission?: Yes (6) Pre-syncope Is this a current diagnosis for this admission?: Yes (7) Wernicke's disease with cerebellar manifestation Is this a current diagnosis for this admission?: Yes - Plan Summary Plan Summary: Pre-syncope- unclear etiology. she has history of alcohol abuse and wernicke's encephalopathy- she also has hyponatremia. this all could be contributors to her symptoms. shes also on a lot of HTN meds which could lead to some hypotensive events at home leading to pre-syncopal episodes acute cystitis- UCx growing GNRs. will start her on Rocephin until we can sensitivities. hyponatremia- resolved. no clear etiology- alcohol abuse vs SIADH.
[2018-03-16] MEDS: GABAPENTIN 300 MG CAPSULE PO SCH (17:18)
[2018-03-16] MEDS: CEFTRIAXONE SODIUM 1,000 MG in DEXTROSE 5%-WATER 50 ML IV SCH (17:32)
[2018-03-16] MEDS: CLOPIDOGREL BISULFATE 75 MG TABLET PO SCH (21:21)
[2018-03-16] MEDS: ATORVASTATIN CALCIUM 10 MG TABLET PO SCH (21:21)
[2018-03-16] MEDS: LORAZEPAM INJ 2 MG/1 ML VIAL IV PRN (21:23)
[2018-03-17] MEDS: LANSOPRAZOLE 30 MG TAB.RAP.DR PO SCH (05:02)
[2018-03-17] MEDS: CARVEDILOL 12.5 MG TABLET PO SCH ×2 (09:13→21:18)
[2018-03-17] MEDS: FLUTICASONE NASAL SPRAY 50 MCG/SPRY 120 SPRAY/16 GM NASL SCH (09:13)
[2018-03-17] MEDS: DOCUSATE SODIUM 100 MG CAPSULE PO SCH (09:14)
[2018-03-17] MEDS: MAGNESIUM OXIDE 400 MG TABLET PO SCH (09:14)
[2018-03-17] MEDS: CALCIUM CARBONATE 250 MG/VITAMIN D3 125 UNIT TABLET PO SCH (09:14)
[2018-03-17] MEDS: THIAMINE HCL 100 MG TABLET PO SCH (09:14)
[2018-03-17] MEDS: NICOTINE 14 MG/24 HR PATCH.TD24 TD SCH (09:14)
[2018-03-17 09:33] LABS: ANION GAP 10 (5-19); BLOOD UREA NITROGEN 5 mg/dL (7-20); CARBON DIOXIDE 29 mmol/L (22-30); CHLORIDE 98 mmol/L (98-107); GLUCOSE 104 mg/dL (75-110); POTASSIUM 4.7 mmol/L (3.6-5.0); SODIUM 137.1 mmol/L (137-145)
--- NOTE | 2018-03-17 16:47 | PDOC PROGRESS REPORT ---
Subjective Progress Note for:: 03/17/18 - Seen on rounds this morning Subjective:: Patient seen on bedside this morning. She is very emotional today and tearful. She tells me she is not happy that she is still in the hospital but she is unsure why her sodium keeps dropping. She is also not sure why she had been having presyncopal episodes at home. As a walk-in to talk to her -she is on the cell phone laying on the bed talking to her daughter. She does not seem to be in distress or short of breath at all. She hangs up the phone and tells me that she has been very short of breath this morning. She tells me that she is very winded this morning. I tell her that I will examine her and look at her labs to see if there is any abnormalities. Reason For Visit: ORTHOSTASIS Physical Exam Vital Signs: Temp Pulse Resp BP Pulse Ox 98.6 F 93 16 130/93 H 95 03/17/18 15:17 03/17/18 15:17 03/17/18 15:17 03/17/18 15:17 03/17/18 15:17 Intake & Output 03/16/18 03/17/18 03/18/18 06:59 06:59 06:59 Intake Total 459 2014.2 Output Total 650 1900 Balance -191 114.2 Weight 147 lb 4.301 oz 147 lb 4.301 oz General appearance: PRESENT: no acute distress Head exam: PRESENT: atraumatic, normocephalic Eye exam: PRESENT: EOMI. ABSENT: conjunctival injection, scleral icterus Ear exam: PRESENT: normal external ear exam Mouth exam: PRESENT: tongue midline Neck exam: ABSENT: tracheal deviation Respiratory exam: PRESENT: clear to auscultation roxie, symmetrical Cardiovascular exam: PRESENT: +S1, +S2 Pulses: PRESENT: +2 pedal pulses bilateral GI/Abdominal exam: PRESENT: normal bowel sounds, soft. ABSENT: tenderness Extremities exam: ABSENT: pedal edema Neurological exam: PRESENT: alert, awake, oriented to person, oriented to place , oriented to time, oriented to situation, CN II-XII grossly intact Skin exam: PRESENT: dry, warm Results Laboratory Results: 03/17/18 08:09 03/17/18 08:09 Sodium 137.1 Potassium 4.7 Chloride 98 Carbon Dioxide 29 Anion Gap 10 BUN 5 L Creatinine 0.79 Est GFR ( Amer) > 60 Est GFR (Non-Af Amer) > 60 Glucose 104 Calcium 9.0 Impressions: Chest X-Ray 03/13/18 00:00 IMPRESSION: 1. No ACUTE RADIOGRAPHIC FINDING IN THE CHEST. Chest/Abdomen CTA 03/13/18 19:39 IMPRESSION: 1. There is no evidence of pulmonary emboli. 2. Fatty infiltration of the liver. Assessment & Plan - Diagnosis (1) Alcohol dependence Qualifiers: Substance use status: other alcohol-induced disorder Qualified Code(s): F10.288 - Alcohol dependence with other alcohol-induced disorder Is this a current diagnosis for this admission?: Yes (2) Hyponatremia Is this a current diagnosis for this admission?: Yes (3) Dyslipidemia Is this a current diagnosis for this admission?: Yes (4) Essential hypertension Is this a current diagnosis for this admission?: Yes (5) Tobacco abuse Is this a current diagnosis for this admission?: Yes (6) Pre-syncope Is this a current diagnosis for this admission?: Yes (7) Wernicke's disease with cerebellar manifestation Is this a current diagnosis for this admission?: Yes - Plan Summary Plan Summary: Pre-syncope- unclear etiology. she has history of alcohol abuse and wernicke's encephalopathy- she also has hyponatremia. this all could be contributors to her symptoms. shes also on a lot of HTN meds which could lead to some hypotensive events at home leading to pre-syncopal episodes acute cystitis-urine is currently positive for E. coli and have started her on Rocephin which is sensitive. Warnicke's encephalopathy-most likely secondary to alcohol abuse. I think patient is not being very forthcoming with her alcohol use. When I asked her last time she told me that she only drinks 1-3 drinks every month. hyponatremia- resolved. no clear etiology- alcohol abuse vs SIADH. Hypokalemia-resolved
[2018-03-17] MEDS: LORAZEPAM INJ 2 MG/1 ML VIAL IV PRN (18:25)
[2018-03-17] MEDS: GABAPENTIN 300 MG CAPSULE PO SCH (18:25)
[2018-03-17] MEDS: CEFTRIAXONE SODIUM 1,000 MG in DEXTROSE 5%-WATER 50 ML IV SCH (18:25)
[2018-03-17] MEDS: DIPHENHYDRAMINE HCL 50 MG CAPSULE PO SCH (21:18)
[2018-03-17] MEDS: CLOPIDOGREL BISULFATE 75 MG TABLET PO SCH (21:19)
[2018-03-17] MEDS: ATORVASTATIN CALCIUM 10 MG TABLET PO SCH (21:19)
[2018-03-17] MEDS ORDERED: CYCLOBENZAPRINE HCL 10 MG TABLET PO SCH (22:00)
[2018-03-17] MEDS: MELATONIN 3 MG TABLET PO SCH (22:59)
[2018-03-18] MEDS: LANSOPRAZOLE 30 MG TAB.RAP.DR PO SCH (05:23)
[2018-03-18] MEDS: ACETAMINOPHEN 325 MG TABLET PO PRN ×3 (06:53→20:50)
[2018-03-18] MEDS: NICOTINE 14 MG/24 HR PATCH.TD24 TD SCH (10:11)
[2018-03-18] MEDS: CALCIUM CARBONATE 250 MG/VITAMIN D3 125 UNIT TABLET PO SCH (10:11)
[2018-03-18] MEDS: CARVEDILOL 12.5 MG TABLET PO SCH ×2 (10:11→21:05)
[2018-03-18] MEDS: MAGNESIUM OXIDE 400 MG TABLET PO SCH (10:11)
[2018-03-18] MEDS: THIAMINE HCL 100 MG TABLET PO SCH (10:11)
[2018-03-18] MEDS: FLUTICASONE NASAL SPRAY 50 MCG/SPRY 120 SPRAY/16 GM NASL SCH (10:12)
[2018-03-18] MEDS: DOCUSATE SODIUM 100 MG CAPSULE PO SCH (10:12)
[2018-03-18] MEDS ORDERED: NITROGLYCERIN 0.4 MG/TAB 25 TAB/BOTTLE SL PRN (13:06)
--- NOTE | 2018-03-18 13:17 | PDOC PROGRESS REPORT ---
Subjective Progress Note for:: 03/18/18 - Seen on rounds this morning. Subjective:: Patient was laying on her bed comfortably and talking on the phone again. Spoke to her about her care and answered all her questions this morning. Currently she has no complaints to me at this time. She denies any chest pain, shortness of breath, abdominal pain, nausea or vomiting. She is just worried about why she has had these syncopal episodes in the past. Reason For Visit: ORTHOSTASIS Physical Exam Vital Signs: Temp Pulse Resp BP Pulse Ox 97.5 F 95 16 148/104 H 95 03/18/18 11:33 03/18/18 11:33 03/18/18 11:33 03/18/18 11:33 03/18/18 11:33 Intake & Output 03/17/18 03/18/18 03/19/18 06:59 06:59 06:59 Intake Total 2014.2 1025 Output Total 1900 Balance 114.2 1025 Weight 147 lb 4.301 oz 146 lb 9.718 oz Results Laboratory Results: 03/17/18 08:09 Impressions: Chest X-Ray 03/13/18 00:00 IMPRESSION: 1. No ACUTE RADIOGRAPHIC FINDING IN THE CHEST. Chest/Abdomen CTA 03/13/18 19:39 IMPRESSION: 1. There is no evidence of pulmonary emboli. 2. Fatty infiltration of the liver. Assessment & Plan - Diagnosis (1) Alcohol dependence Qualifiers: Substance use status: other alcohol-induced disorder Qualified Code(s): F10.288 - Alcohol dependence with other alcohol-induced disorder Is this a current diagnosis for this admission?: Yes (2) Hyponatremia Is this a current diagnosis for this admission?: Yes (3) Dyslipidemia Is this a current diagnosis for this admission?: Yes (4) Essential hypertension Is this a current diagnosis for this admission?: Yes (5) Tobacco abuse Is this a current diagnosis for this admission?: Yes (6) Pre-syncope Is this a current diagnosis for this admission?: Yes (7) Wernicke's disease with cerebellar manifestation Is this a current diagnosis for this admission?: Yes - Plan Summary Plan Summary: Pre-syncope- unclear etiology. she has history of alcohol abuse and wernicke's encephalopathy- she also has hyponatremia. this all could be contributors to her symptoms. shes also on a lot of HTN meds which could lead to some hypotensive events at home leading to pre-syncopal episodes. Since she has a history of hypertension and Warnicke's encephalopathy I think at this time it would be a good idea to get an echocardiogram of her heart to rule out any cardiac defects. I will also get a ultrasound of her carotids to rule out any thrombus. She is a poor historian and unable to tell me about the specific details about her syncopal episodes. She does not have any witnesses when the syncopal episodes had happened. acute cystitis-urine is currently positive for E. coli and have started her on Rocephin which is sensitive. Today is day 3 of antibiotics and I think we can stop after today's dose. Warnicke's encephalopathy-most likely secondary to alcohol abuse. I think patient is not being very forthcoming with her alcohol use. When I asked her last time she told me that she only drinks 1-3 drinks every month. hyponatremia- resolved. no clear etiology- alcohol abuse vs SIADH. I did give her some IV fluids which has helped and hence I feel that this is most likely alcohol related. When she leaves I have discussed with her about following up with her primary care doctor and considering a workup for her hyponatremia while she is off of alcohol. Hypokalemia-resolved Hypertension-seems to be elevated within the last few days that she has been admitted. Her diastolic blood pressure is much more higher than her systolic. I see that she is on Coreg 12.5 mg twice daily at home. Given that she has a history of hypertension-gender and sex-I think I am going to go ahead and add a NANCY inhibitor to help her with her blood pressure. I will start her on lisinopril 5 mg and see how she does. We may need to titrate this depending on how her blood pressure does overnight. I think she should be ready to be discharged in 1-2 days with close follow-up with her PCP. She continues to have these orthostatic/presyncopal episode then she may benefit from following up with the [employer]
[2018-03-18] MEDS: LISINOPRIL 5 MG TABLET PO SCH (14:33)
[2018-03-18] MEDS: GABAPENTIN 300 MG CAPSULE PO SCH (17:17)
[2018-03-18] MEDS: FLUTICASONE/SALMETEROL DISKUS 250-50 MCG/DOSE IH SCH (17:17)
[2018-03-18] MEDS: CEFTRIAXONE SODIUM 1,000 MG in DEXTROSE 5%-WATER 50 ML IV SCH (17:17)
[2018-03-18] MEDS: ATORVASTATIN CALCIUM 10 MG TABLET PO SCH (21:05)
[2018-03-18] MEDS: CLOPIDOGREL BISULFATE 75 MG TABLET PO SCH (21:05)
[2018-03-18] MEDS: DIPHENHYDRAMINE HCL 50 MG CAPSULE PO SCH (21:05)
[2018-03-18] MEDS: MELATONIN 3 MG TABLET PO SCH (21:05)
[2018-03-19] MEDS: ACETAMINOPHEN 325 MG TABLET PO PRN ×3 (00:20→18:41)
[2018-03-19] MEDS: LANSOPRAZOLE 30 MG TAB.RAP.DR PO SCH (05:10)
[2018-03-19] MEDS: FLUTICASONE/SALMETEROL DISKUS 250-50 MCG/DOSE IH SCH ×2 (05:10→18:41)
[2018-03-19] MEDS: CYCLOBENZAPRINE HCL 10 MG TABLET PO PRN ×2 (06:24→22:19)
[2018-03-19] MEDS: CARVEDILOL 12.5 MG TABLET PO SCH ×2 (08:46→22:19)
[2018-03-19] MEDS: DOCUSATE SODIUM 100 MG CAPSULE PO SCH (09:17)
[2018-03-19] MEDS: NICOTINE 14 MG/24 HR PATCH.TD24 TD SCH (09:20)
[2018-03-19] MEDS: LISINOPRIL 5 MG TABLET PO SCH (09:20)
[2018-03-19] MEDS: MAGNESIUM OXIDE 400 MG TABLET PO SCH (09:20)
[2018-03-19] MEDS: CALCIUM CARBONATE 250 MG/VITAMIN D3 125 UNIT TABLET PO SCH (09:20)
[2018-03-19] MEDS: THIAMINE HCL 100 MG TABLET PO SCH (09:20)
[2018-03-19] MEDS: FLUTICASONE NASAL SPRAY 50 MCG/SPRY 120 SPRAY/16 GM NASL SCH (09:21)
--- NOTE | 2018-03-19 15:53 | PDOC PROGRESS REPORT ---
Subjective Progress Note for:: 03/19/18 Subjective:: No adverse events overnight. No new complaints. Her blood pressure was pretty high this morning. She denies any syncopal events or lightheadedness. No chest pain or shortness of breath. Reason For Visit: ORTHOSTASIS Physical Exam Vital Signs: Temp Pulse Resp BP Pulse Ox 97.6 F 86 18 125/97 H 96 03/19/18 11:36 03/19/18 11:36 03/19/18 11:36 03/19/18 11:36 03/19/18 11:36 Intake & Output 03/18/18 03/19/18 03/20/18 06:59 06:59 06:59 Intake Total 1025 2625 842 Output Total 300 Balance 1025 2625 542 Weight 66.5 kg 60 kg General appearance: PRESENT: no acute distress Respiratory exam: PRESENT: clear to auscultation bilaterally, symmetrical Cardiovascular exam: PRESENT: +S1, +S2 Pulses: PRESENT: +2 pedal pulses bilateral GI/Abdominal exam: PRESENT: normal bowel sounds, soft. ABSENT: tenderness Extremities exam: ABSENT: pedal edema Neurological exam: PRESENT: alert, awake, oriented to person, oriented to place , oriented to time, oriented to situation Skin exam: PRESENT: dry, warm Results Laboratory Results: 03/17/18 08:09 Impressions: Chest X-Ray 03/13/18 00:00 IMPRESSION: 1. No ACUTE RADIOGRAPHIC FINDING IN THE CHEST. Chest/Abdomen CTA 03/13/18 19:39 IMPRESSION: 1. There is no evidence of pulmonary emboli. 2. Fatty infiltration of the liver. Assessment & Plan - Diagnosis (1) Pre-syncope Is this a current diagnosis for this admission?: Yes Plan: No further episodes. Echocardiogram and carotid Doppler pending. (2) Hyponatremia Is this a current diagnosis for this admission?: Yes Plan: Resolved (3) Alcohol dependence Qualifiers: Substance use status: other alcohol-induced disorder Qualified Code(s): F10.288 - Alcohol dependence with other alcohol-induced disorder Is this a current diagnosis for this admission?: Yes Plan: Being monitored for evidence of withdrawal, no signs of that at this time. (4) Hypertension Qualifiers: Hypertension type: essential hypertension Qualified Code(s): I10 - Essential (primary) hypertension Is this a current diagnosis for this admission?: Yes Plan: She had a medication adjustment yesterday but her pressure was pretty high again this morning, so we are monitoring her for a response. - Time Time Spent with patient: 25-34 minutes
[2018-03-19] MEDS: GABAPENTIN 300 MG CAPSULE PO SCH (18:41)
[2018-03-19] MEDS: CLOPIDOGREL BISULFATE 75 MG TABLET PO SCH (22:19)
[2018-03-19] MEDS: MELATONIN 3 MG TABLET PO SCH (22:19)
[2018-03-19] MEDS: ATORVASTATIN CALCIUM 10 MG TABLET PO SCH (22:19)
[2018-03-19] MEDS: DIPHENHYDRAMINE HCL 50 MG CAPSULE PO SCH (22:19)
[2018-03-20] MEDS: LANSOPRAZOLE 30 MG TAB.RAP.DR PO SCH (05:51)
[2018-03-20] MEDS: FLUTICASONE/SALMETEROL DISKUS 250-50 MCG/DOSE IH SCH (05:51)
[2018-03-20] MEDS: ACETAMINOPHEN 325 MG TABLET PO PRN (07:24)
[2018-03-20] MEDS: MAGNESIUM OXIDE 400 MG TABLET PO SCH (09:33)
[2018-03-20] MEDS: CARVEDILOL 12.5 MG TABLET PO SCH (09:34)
[2018-03-20] MEDS: THIAMINE HCL 100 MG TABLET PO SCH (09:34)
[2018-03-20] MEDS: DOCUSATE SODIUM 100 MG CAPSULE PO SCH (09:34)
[2018-03-20] MEDS: FLUTICASONE NASAL SPRAY 50 MCG/SPRY 120 SPRAY/16 GM NASL SCH (09:34)
[2018-03-20] MEDS: NICOTINE 14 MG/24 HR PATCH.TD24 TD SCH (09:34)
[2018-03-20] MEDS: LISINOPRIL 5 MG TABLET PO SCH (09:34)
[2018-03-20] MEDS: CALCIUM CARBONATE 250 MG/VITAMIN D3 125 UNIT TABLET PO SCH (09:34)
[2018-03-20 13:22] VITALS: BP 124/89
--- NOTE | 2018-03-20 18:02 | PDOC DISCHARGE SUMMARY ---
General - Admit/Disc Date/PCP Admission Date/Primary Care Provider: 03/15/18 15:05 MOLLY CORREIA MD Discharge Date: 03/20/18 - Discharge Diagnosis (1) Pre-syncope Is this a current diagnosis for this admission?: Yes Summary: I do not think she ever had any syncopal episodes. The episode she described to me sound like orthostatic hypotension. She has not had any of those episodes here. We talked to her about caution she needed to take when undergoing position changes. She is also had a negative workup by a cray fishing hand for this problem in the past. (2) Hyponatremia Is this a current diagnosis for this admission?: Yes Summary: Resolved with fluid administration (3) Alcohol dependence Is this a current diagnosis for this admission?: Yes Summary: Was counseled regarding cessation. She did not show any signs of withdrawal here. (4) Hypertension Is this a current diagnosis for this admission?: Yes Summary: This problem abated after several days. She did not have any trouble on her usual regimen. - Additional Information Resuscitation Status: Full Code Discharge Diet: Cardiac Discharge Activity: Activity As Tolerated Home Medications: Clopidogrel Bisulfate [Plavix 75 mg Tablet] 75 mg PO DAILY 10/29/15 Cyclobenzaprine HCl [Flexeril 10 mg Tablet] 10 mg PO TIDP PRN 10/29/15 Pantoprazole Sodium [Protonix] 40 mg PO BID 10/29/15 Fluticasone/Salmeterol [Advair 250-50 Diskus 14 Dose/Diskus] 1 puff IH BID 10/28 Nitroglycerin [Nitrostat] 1 tab SL PRN PRN 10/28/17 Rosuvastatin Calcium [Crestor] 10 mg PO QHS 10/28/17 Acetaminophen [Tylenol] 325 mg PO PRN PRN 03/14/18 Carvedilol [Coreg 12.5 mg Tablet] 12.5 mg PO BID 03/14/18 Docusate Sodium [Colace 100 mg Capsule] 100 mg PO DAILY capsule 03/20/18 Thiamine HCl [Thiamine 100 mg Tablet] 100 mg PO DAILY tablet 03/20/18 History of Present Illness History of Present Illness: KOTA DELAROSA is a 62 year old female with a past medical history of hypertension, COPD, dyslipidemia, TIA, pancreatitis with alcohol and tobacco dependence. She presents with nausea and vomiting of gastric content, weakness and falls. In the emergency room patient states she has fallen several times after standing from a sitting or supine position. She denies seizure, chest pain, palpitations, diaphoresis or loss of consciousness. In the emergency room she is found to have hyponatremia, hypokalemia and hypoalbuminemia. She is referred to the hospitalist for admission. Patient is unclear of her medication regiment and refuses to quantify her daily alcohol consumption. A family member is frustrated regarding her alcohol habit and leaves the room reminding her of the importance of honesty. She is currently without chest pain palpitations, nausea or vomiting. Hospital Course Hospital Course: She finished a 3-day course of Rocephin for UTI. She was given some fluid and then had a mild fluid restriction her sodium corrected over the course of a few days. Her blood pressure was controlled with her home medications. She did not have any further dizzy episodes and was counseled regarding position changes. Her labs and examination were reassuring and she was discharged in good condition. Physical Exam Vital Signs: Temp Pulse Resp BP Pulse Ox 97.7 F 104 H 16 124/89 H 98 03/20/18 13:20 03/20/18 13:20 03/20/18 13:20 03/20/18 13:20 03/20/18 13:20 Intake & Output 03/19/18 03/20/18 03/21/18 06:59 06:59 06:59 Intake Total 2625 842 798 Output Total 1700 600 Balance 2625 -858 198 Weight 60 kg 59.9 kg General appearance: PRESENT: no acute distress Respiratory exam: PRESENT: clear to auscultation bilaterally, symmetrical Cardiovascular exam: PRESENT: +S1, +S2 Pulses: PRESENT: +2 pedal pulses bilateral GI/Abdominal exam: PRESENT: normal bowel sounds, soft. ABSENT: tenderness Extremities exam: ABSENT: pedal edema Neurological exam: PRESENT: alert, awake, oriented to person, oriented to place , oriented to time, oriented to situation Skin exam: PRESENT: dry, warm Results Laboratory Results: 03/17/18 08:09 Impressions: Chest X-Ray 03/13/18 00:00 IMPRESSION: 1. No ACUTE RADIOGRAPHIC FINDING IN THE CHEST. Chest/Abdomen CTA 03/13/18 19:39 IMPRESSION: 1. There is no evidence of pulmonary emboli. 2. Fatty infiltration of the liver. Qualifiers - * PATIENT BEING DISCHARGED WITH ANY OF THE FOLLOWING DIAGNOSIS: No
== END 2018-03-20 15:13 | disposition home or self-care (01) | DRG 312 ==
LOC: ER 15:37 → EH 22:30 → 3W 03-14 00:21 → OBSVTOIN 03-15 15:05 → 4N 03-16 20:58
PROVIDERS: ADMIT Internal Medicine; ATTEND Internal Medicine
PROC: 3E0234Z Introduction of Serum, Toxoid and Vaccine into Muscle, Percutaneous Approach (ICD-10-PCS; principal; 2018-03-20)
DX: I95.1 Orthostatic hypotension (principal); E87.1 Hypo-osmolality and hyponatremia; E51.2 Wernicke's encephalopathy; N30.00 Acute cystitis without hematuria; E83.42 Hypomagnesemia; E87.6 Hypokalemia; F10.20 Alcohol dependence, uncomplicated; Y90.9 Presence of alcohol in blood, level not specified; R26.89 Other abnormalities of gait and mobility; B96.20 Unspecified Escherichia coli [E. coli] as the cause of diseases classified elsewhere; R06.02 Shortness of breath; N18.9 Chronic kidney disease, unspecified; I12.9 Hypertensive chronic kidney disease with stage 1 through stage 4 chronic kidney disease, or unspecified chronic kidney disease; E78.00 Pure hypercholesterolemia, unspecified; F17.210 Nicotine dependence, cigarettes, uncomplicated; Z79.01 Long term (current) use of anticoagulants; Z79.51 Long term (current) use of inhaled steroids; Z79.899 Other long term (current) drug therapy; Z23 Encounter for immunization
CPT/HCPCS: 36415; 71046; 71275; 80048; 80053; 80307; 81001; 82550; 82553; 82607; 82728; 82746; 83540; 83550; 83690; 83735; 83880; 84100; 84443; 84484; 85025; 85027; 85045; 87086; 87088; 87186; 90471; 90686; 93005; 93010; 96361; 96365; 99285; G0008; G0378; J0610; J0696; J1644; J2060; J3411; J3475; J3480; J3490; J7030; J7050

== ENCOUNTER 2018-07-04 15:09 | Emergency (ER) | payer OTHER ==
--- NOTE | 2018-07-04 16:35 | ER Document Report ---
ED Medical Screen (RME) - General Chief Complaint: Shortness Of Breath Stated Complaint: HEARTRATE ISSUE Time Seen by Provider: 07/04/18 16:21 Primary Care Provider: SARA LAWRENCE PA-C [Primary Care Provider] - Follow up as needed Notes: Patient is a 63-year-old female that presents to the emergency department for chief complaint of shortness of breath, chest pain and tachycardia. Patient reports being seen by Dr. Mendoza today, and was told to come to the ER due to a dysrhythmia. ROS: Other than noted above, the 12 point review of systems was reviewed with the patient and were negative, all pertinent findings are included in the HPI. PHYSICAL EXAMINATION: Vital signs reviewed. GENERAL: Well-appearing, well-nourished and in no acute distress. HEAD: Atraumatic, normocephalic. EYES: Pupils equal round extraocular movements intact, conjunctiva are normal. ENT: Nares patent NECK: Normal range of motion CV: Heart rate tachycardic, regular rhythm LUNGS: No respiratory distress Musculoskeletal: Normal range of motion NEUROLOGICAL: Normal speech PSYCH: Normal mood, normal affect. MDM: Patient seen and examined for rapid initial assessment. Vital signs reviewed. A comprehensive ED assessment and evaluation of the patient, analysis of test results and completion of the medical decision making process will be conducted by additional ED providers. *Note is created using voice recognition software and may contain spelling, syntax or grammatical errors. TRAVEL OUTSIDE OF THE [place] IN LAST 30 DAYS: No - Related Data Allergies/Adverse Reactions: aspirin [Aspirin] Allergy (Verified 07/04/18 16:20) Past Medical History - Social History Frequency of alcohol use: Occasional Drug Abuse: None - Past Medical History Cardiac Medical History: Reports: Hx Hypercholesterolemia, Hx Hypertension Denies: Hx Coronary Artery Disease, Hx Heart Attack Pulmonary Medical History: Reports: Hx Asthma, Hx Pneumonia Denies: Hx Bronchitis, Hx COPD Neurological Medical History: Denies: Hx Cerebrovascular Accident, Hx Seizures Endocrine Medical History: Denies: Hx Diabetes Mellitus Type 1, Hx Diabetes Mellitus Type 2 Renal/ Medical History: Reports: Hx End Stage Renal Disease. Denies: Hx Peritoneal Dialysis GI Medical History: Denies: Hx Hepatitis, Hx Hiatal Hernia, Hx Ulcer Musculoskeltal Medical History: Reports Hx Arthritis - knee's, back, hips Psychiatric Medical History: Reports: Hx Depression Infectious Medical History: Denies: Hx Hepatitis Past Surgical History: Reports: Hx Appendectomy, Hx Section - x3, Hx Hysterectomy, Hx Orthopedic Surgery - roxie knee/roxie feet/right hand, Hx Tonsillectomy. Denies: Hx Mastectomy, Hx Open Heart Surgery, Hx Pacemaker - Immunizations Hx Diphtheria, Pertussis, Tetanus Vaccination: Yes History of Influenza Vaccine for 01/2017 - 06/2017 Season: Yes Physical Exam - Vital signs Vitals: Temp Pulse Resp BP Pulse Ox 98.3 F 120 H 18 104/80 100 07/04/18 15:24 07/04/18 15:24 07/04/18 15:24 07/04/18 15:24 07/04/18 15:24 Course - Vital Signs Vital signs: Temp Pulse Resp BP Pulse Ox 98.3 F 120 H 18 104/80 100 07/04/18 15:24 07/04/18 15:24 07/04/18 15:24 07/04/18 15:24 07/04/18 15:24 Doctor's Discharge - Discharge Referrals: SARA LAWRENCE PA-C [Primary Care Provider] - Follow up as needed
--- NOTE | 2018-07-04 17:05 | RADIOLOGY REPORT (SQ) ---
EXAM DESCRIPTION: CHEST SINGLE VIEW COMPLETED DATE/TIME: 07/04/2018 4:47 pm REASON FOR STUDY: shortness of breath COMPARISON: 03/13/2018. EXAM PARAMETERS: NUMBER OF VIEWS: One view. TECHNIQUE: Single frontal radiographic view of the chest acquired. RADIATION DOSE: NA LIMITATIONS: None. FINDINGS: LUNGS AND PLEURA: No opacities, masses or pneumothorax. No pleural effusion. MEDIASTINUM AND HILAR STRUCTURES: No masses. Contour normal. HEART AND VASCULAR STRUCTURES: Heart normal in size. Normal vasculature. BONES: No acute findings. HARDWARE: None in the chest. OTHER: No other significant finding. IMPRESSION: NO ACUTE RADIOGRAPHIC FINDING IN THE CHEST. TECHNICAL DOCUMENTATION: JOB ID: [id number] [employer]- All Rights Reserved Reading location - IP/workstation name: [email or web address]
[2018-07-04 18:11] LABS: ABSOLUTE EOSINOPHILS # (AUTO) 0.1 10^3/uL (0.0-0.6); ABSOLUTE LYMPHOCYTES (AUTO) 2.5 10^3/uL (0.5-4.7); ABSOLUTE MONOCYTES (AUTO) 0.4 10^3/uL (0.1-1.4); ABSOLUTE NEUT (AUTO) 3.4 10^3/uL (1.7-8.2); BASOPHILS % (AUTO) 0.6 % (0-2); EOSINOPHILS % (AUTO) 1.1 % (0-6); HEMATOCRIT 39.5 % (36.0-47.0); LYMPHOCYTES % (AUTO) 38.7 % (13-45); MEAN CORPUSCULAR HEMOGLOBIN 35.8 pg (27.0-33.4); MEAN CORPUSCULAR HGB CONC 35.3 g/dL (32.0-36.0); MEAN CORPUSCULAR VOLUME 101 fl (80-97); MONOCYTES % (AUTO) 6.2 % (3-13); PLATELET COUNT 189 10^3/uL (150-450); RED BLOOD COUNT 3.89 10^6/uL (3.72-5.28); RED CELL DISTRIBUTION WIDTH 14.1 % (11.5-14.0); SEGMENTED NEUTROPHILS % (AUTO) 53.4 % (42-78); TOTAL CELLS COUNTED % (AUTO) 100 %; WHITE BLOOD COUNT 6.5 10^3/uL (4.0-10.5)
[2018-07-04 18:17] LABS: INTERNATIONAL RATION (INR) 0.92; PROTHROMBIN TIME 12.8 SEC (11.4-15.4)
[2018-07-04 18:51] LABS: FREE T4 (FREE THYROXINE) 0.93 ng/dL (0.78-2.19)
[2018-07-04 19:04] LABS: ALANINE AMINOTRANSFERASE 124 U/L (9-52); ALBUMIN 3.9 g/dL (3.5-5.0); ALKALINE PHOSPHATASE 200 U/L (38-126); ANION GAP 10 (5-19); ASPARTATE AMINO TRANSFERASE 595 U/L (14-36); BILIRUBIN,DIRECT 0.5 mg/dL (0.0-0.4); BILIRUBIN,TOTAL 0.7 mg/dL (0.2-1.3); BLOOD UREA NITROGEN 5 mg/dL (7-20); CALCIUM 9.6 mg/dL (8.4-10.2); CARBON DIOXIDE 28 mmol/L (22-30); CHLORIDE 96 mmol/L (98-107); GLUCOSE 116 mg/dL (75-110); POTASSIUM 4.1 mmol/L (3.6-5.0); SODIUM 134.4 mmol/L (137-145); THYROID STIMULATING HORMONE 4.21 uIU/mL (0.47-4.68); TOTAL PROTEIN 6.4 g/dL (6.3-8.2)
--- NOTE | 2018-07-04 19:59 | ER Document Report ---
ED General - General Chief Complaint: Shortness Of Breath Stated Complaint: HEARTRATE ISSUE Time Seen by Provider: 07/04/18 16:21 Primary Care Provider: SARA LAWRENCE PA-C [Primary Care Provider] - Follow up as needed ZOE WILEY MD [ACTIVE STAFF] - Follow up as needed (Follow-up with Dr. Yoo as planned) Mode of Arrival: Ambulatory Information source: Patient Notes: This is a 63-year-old female with a history of hypertension, GERD and COPD who is referred to the ER by Dr. Wiley for palpitations, shortness of breath, unsteady gait. Patient was seen in the office today and referred because of tachycardia. Patient denies any chest pain. TRAVEL OUTSIDE OF THE [place] IN LAST 30 DAYS: No - HPI Onset: Last week Onset/Duration: Gradual Quality of pain: No pain Severity: None Pain Level: Denies Associated symptoms: None Exacerbated by: Supine Relieved by: Denies Similar symptoms previously: Yes Recently seen / treated by doctor: Yes - Related Data Allergies/Adverse Reactions: aspirin [Aspirin] Allergy (Verified 07/04/18 16:20) Past Medical History - General Information source: Patient - Social History Smoking Status: Current Every Day Smoker Cigarette use (# per day): Yes - 10 cigarettes a day Chew tobacco use (# tins/day): No Frequency of alcohol use: Occasional Drug Abuse: None Lives with: Family Family History: CAD, Hypertension Patient has suicidal ideation: No Patient has homicidal ideation: No - Past Medical History Cardiac Medical History: Reports: Hx Hypercholesterolemia, Hx Hypertension Denies: Hx Coronary Artery Disease, Hx Heart Attack Pulmonary Medical History: Reports: Hx Asthma, Hx Pneumonia Denies: Hx Bronchitis, Hx COPD Neurological Medical History: Denies: Hx Cerebrovascular Accident, Hx Seizures Endocrine Medical History: Denies: Hx Diabetes Mellitus Type 1, Hx Diabetes Mellitus Type 2 Renal/ Medical History: Reports: Hx End Stage Renal Disease. Denies: Hx Peritoneal Dialysis GI Medical History: Denies: Hx Hepatitis, Hx Hiatal Hernia, Hx Ulcer Musculoskeletal Medical History: Reports Hx Arthritis - knee's, back, hips Psychiatric Medical History: Reports: Hx Depression Infectious Medical History: Denies: Hx Hepatitis Past Surgical History: Reports: Hx Appendectomy, Hx Section - x3, Hx H ysterectomy, Hx Orthopedic Surgery - roxie knee/roxie feet/right hand, Hx Tonsillectomy. Denies: Hx Mastectomy, Hx Open Heart Surgery, Hx Pacemaker - Immunizations Hx Diphtheria, Pertussis, Tetanus Vaccination: Yes Review of Systems - Review of Systems Constitutional: denies: Chills, Fever EENT: No symptoms reported Cardiovascular: See HPI Respiratory: No symptoms reported Gastrointestinal: No symptoms reported Genitourinary: No symptoms reported Female Genitourinary: No symptoms reported Musculoskeletal: No symptoms reported Skin: No symptoms reported Hematologic/Lymphatic: No symptoms reported Neurological/Psychological: See HPI Physical Exam - Vital signs Vitals: Temp Pulse Resp BP Pulse Ox 98.3 F 120 H 18 104/80 100 07/04/18 15:24 07/04/18 15:24 07/04/18 15:24 07/04/18 15:24 07/04/18 15:24 Notes: Physical exam: GENERAL: Blood pressure 151/113, pulse 107. Patient is alert and oriented x3 HEAD: Atraumatic, normocephalic. EYES: Pupils equal round and reactive to light, extraocular movements intact, sclera anicteric, conjunctiva are normal. ENT: TMs normal, nares patent, oropharynx clear without exudates. Moist mucous membranes. NECK: Normal range of motion, supple without obvious mass or JVD. LUNGS: Breath sounds clear to auscultation bilaterally and equal. No wheezes rales or rhonchi. HEART: Tachycardia without murmurs, rubs or gallops. ABDOMEN: Soft, normoactive bowel sounds. No tenderness to palpation. No guarding, no rebound. No masses appreciated. EXTREMITIES: Normal range of motion, no pitting or edema. No clubbing or cyanosis. NEUROLOGICAL: Cranial nerves II through XII grossly intact. Normal speech, moving all extremities. PSYCH: Normal mood, normal affect. SKIN: Warm, Dry, normal turgor, no rashes or lesions noted. Course - Re-evaluation Re-evalutation: 07/05/18 01:22 I did discuss the case with Dr. Wiley and knows the patient well. He recommended repleting the magnesium, sending her home on magnesium supplementations. The patient already does take supplements. She is gotten IV magnesium in the emergency room and she was observed several hours in the monitor. - Vital Signs Vital signs: Temp Pulse Resp BP Pulse Ox 98.7 F 120 H 16 138/78 H 98 07/05/18 01:07 07/04/18 15:24 07/05/18 01:07 07/05/18 01:07 07/05/18 01:07 - Laboratory Result Diagrams: 07/04/18 17:53 07/04/18 17:53 Laboratory results interpreted by me: 07/04/18 07/04/18 07/04/18 17:53 17:53 17:53 MCV 101 H MCH 35.8 H RDW 14.1 H Sodium 134.4 L Chloride 96 L BUN 5 L Glucose 116 H Magnesium 1.1 L* Direct Bilirubin 0.5 H AST 595 H ALT 124 H Alkaline Phosphatase 200 H - Diagnostic Test Radiology reviewed: Image reviewed, Reports reviewed - X-ray shows no infiltrates - EKG Interpretation by Me Rate: Tachycardia - EKG shows tachycardia with a ventricular rate of 112, left axis deviation, no acute ST-T wave changes. Discharge - Discharge Clinical Impression: Palpitations, Hypomagnesemia Condition: Stable Disposition: HOME, SELF-CARE Additional Instructions: To new current medicines. Take the magnesium supplements as previously prescribed. Return to the emergency room for any chest pain, shortness of breath, worsening palpitations or any concerns or getting worse. Referrals: SARA LAWRENCE PA-C [Primary Care Provider] - Follow up as needed ZOE WILEY MD [ACTIVE STAFF] - Follow up as needed (Follow-up with Dr. Yoo as planned)
--- NOTE | 2018-07-04 20:49 | RADIOLOGY REPORT (SQ) ---
CT HEAD WITHOUT IV CONTRAST EXAM DATE: 07/04/2018 19:57 HISTORY: Gait instability. COMPARISON: 03/13/2015 TECHNIQUE: CT scan of the brain without IV contrast. This exam was performed according to our departmental dose-optimization program, which includes automated exposure control, adjustment of the mA and/or kV according to patient size and/or use of iterative reconstruction technique. FINDINGS: Diffuse involutional changes are present. There are scattered areas of hypoattenuation within the periventricular white matter, which likely represent chronic microvascular ischemia. No evidence of acute infarction, intracranial hemorrhage, extra-axial fluid collection, or midline shift. No air-fluid levels are seen in the paranasal sinuses to suggest acute sinusitis. No depressed skull fracture. IMPRESSION: 1. No acute intracranial findings. 2. Chronic microvascular ischemic disease.
[2018-07-04] MEDS: MAGNESIUM SULFATE/D5W 1 GM/100 ML RTUPB IV SCH ×3 (21:18→23:28)
--- NOTE | 2018-07-04 21:25 | EKG REPORT ---
SEVERITY:- ABNORMAL ECG - SINUS TACHYCARDIA PROBABLE INFERIOR INFARCT, OLD : Confirmed by: Prisca Wiley MD 04-Jul-2018 21:24:19
[2018-07-05] MEDS: MAGNESIUM SULFATE/D5W 1 GM/100 ML RTUPB IV SCH (00:32)
[2018-07-05 01:32] VITALS: BP 138/78
== END 2018-07-05 01:30 | disposition home or self-care (01) ==
LOC: ER 15:09
DX: E83.42 Hypomagnesemia (principal); R00.2 Palpitations; R00.0 Tachycardia, unspecified; R26.81 Unsteadiness on feet; I10 Essential (primary) hypertension; J45.909 Unspecified asthma, uncomplicated; F17.210 Nicotine dependence, cigarettes, uncomplicated; Z71.6 Tobacco abuse counseling; Z88.6 Allergy status to analgesic agent; Z79.899 Other long term (current) drug therapy
CPT/HCPCS: 93005; 99285; 96365; 96366; 36415; 84439; 83735; 84443; 85025; 85610; 80053; 84484; 71045; 70450; 93010; J3475 ×2

== ENCOUNTER → 2018-07-05 | Outpatient (CLI) | payer OTHER ==
--- NOTE | 2018-07-05 13:54 | WOMENS IMAGING REPORT ---
EXAM DESCRIPTION: BILAT SCREENING MAMMO W/CAD COMPLETED DATE/TIME: 07/05/2018 10:14 am REASON FOR STUDY: Z12.31 ROUTINE BILATERAL SCREENING Z12.31 ENCNTR SCREEN MAMMOGRAM FOR MALIGNANT N EOPLASM OF AMELIA COMPARISON: Multiple since 2008 TECHNIQUE: Standard craniocaudal and mediolateral oblique views of each breast recorded using SoundFocusa l acquisition. LIMITATIONS: None. FINDINGS: No masses, calcifications or architectural distortion. No areas of suspicion. Read with the assistance of CAD. .[facility] - R2 Cenova Version 1.3 .[facility] - R2 Cenova Version 2.1 .[facility] - R2 Cenova Version 2.4 .[facility] [place] Cenova Version 2.4 .[facility] - R2 Fitness Professional Version 9.2 IMPRESSION: NORMAL MAMMOGRAM. BIRADS 1. BREAST DENSITY: b. There are scattered areas of fibroglandular density. BIRAD: 1 NEGATIVE RECOMMENDATION: ROUTINE SCREENING COMMENT: The patient has been notified of the results by letter per SA requirements. Additional no tification policies are in place for contacting patient with suspicious or incomplete findings. Quality ID #[id number]: The [employer] recommends an annual screening mammogram for women aged 40 years or over. This facility utilizes a reminder system to ensure that all patients receive reminder letters, and/or direct phone calls for appointments. This includes reminders for routine scr eening mammograms, diagnostic mammograms, or other Breast Imaging Interventions when appropriate. Th is patient will be placed in the appropriate reminder system. The [employer] ([employer]) has developed recommendations for screening MRI of the breast s in certain patient populations, to be used in conjunction with mammography. Breast MRI surveillanc e may be appropriate for women with more than 20% lifetime risk of developing breast cancer as deter mined by genetic testing, significant family history of the disease, or history of mantle radiation f or Hodgkins Disease. ACR Practice Guidelines 2008. TECHNICAL DOCUMENTATION: FINDING NUMBER: (1) ASSESSMENT: (1) JOB ID: [id number] [employer]- All Rights Reserved Reading location - IP/workstation name: [email or web address]
== END ==
LOC: WI 09:07
PROVIDERS: ATTEND Physician Assistant
DX: Z12.31 Encounter for screening mammogram for malignant neoplasm of breast (principal)
CPT/HCPCS: 77067

== ENCOUNTER 2018-07-18 09:12 | Emergency (ER) | payer OTHER ==
--- NOTE | 2018-07-18 09:37 | ER Document Report ---
Addendum entered and electronically signed by MATTY LUNDBERG NP 07/18/18 11:07: Course - Re-evaluation Re-evalutation: 07/18/18 11:07 Magnesium 1.1. MAG sulfate ordered - Vital Signs Vital signs: Temp Pulse Resp BP Pulse Ox 98.1 F 123 H 16 126/84 H 99 07/18/18 09:19 07/18/18 09:19 07/18/18 09:19 07/18/18 09:19 07/18/18 09:19 - Laboratory Result Diagrams: 07/18/18 09:57 07/18/18 09:57 Laboratory results interpreted by me: 07/18/18 07/18/18 09:57 09:57 RBC 3.40 L Hct 35.2 L MCV 104 H MCH 36.1 H RDW 14.8 H Sodium 128.2 L Chloride 92 L Glucose 141 H Magnesium 1.1 L* AST 219 H ALT 53 H Alkaline Phosphatase 161 H Total Protein 5.8 L Albumin 3.3 L Original Note: ED Medical Screen (RME) - General Chief Complaint: Abnormal Lab Results Stated Complaint: ABNORMAL LABS Time Seen by Provider: 07/18/18 09:29 Primary Care Provider: SARA LAWRENCE PA-C [Primary Care Provider] - Follow up as needed Mode of Arrival: Ambulatory Information source: Patient Notes: Patient presented to the emergency department with reports of low magnesium. She reports her provider Layla Lawrence at [facility] contacted her yesterday and told her that she needed to come to the emergency department because her magnesium was extremely low. Patient is unsure of how low. She reports she was in the hospital several weeks ago with the same problem. She also reports that she is extremely short of breath has been for a while but it is getting worse. She reports she is fallen multiple times over this past weekend because of the shortness of breath. She reports she is fractured her wrist and her tail bone on Monday because of this. Reports her provider is working her up for possible MS and she is also scheduled for an MRI and a nerve study. Patient does report some numbness and tingling feeling which is not new. Denies all other symptoms such as fever vomiting diarrhea. She was instructed to not walk around unless she is escorted and assist. I have greeted and performed a rapid initial assessment of this patient. A comprehensive ED assessment and evaluation of the patient, analysis of test results and completion of the medical decision making process will be conducted by additional ED providers. Dictation of this chart was performed using voice recognition software; therefore, there may be some unintended grammatical errors. TRAVEL OUTSIDE OF THE [place] IN LAST 30 DAYS: No - Related Data Allergies/Adverse Reactions: aspirin [Aspirin] Allergy (Verified 07/18/18 09:18) Past Medical History - Past Medical History Cardiac Medical History: Reports: Hx Hypercholesterolemia, Hx Hypertension Denies: Hx Coronary Artery Disease, Hx Heart Attack Pulmonary Medical History: Reports: Hx Asthma, Hx Pneumonia Denies: Hx Bronchitis, Hx COPD Neurological Medical History: Denies: Hx Cerebrovascular Accident, Hx Seizures Endocrine Medical History: Denies: Hx Diabetes Mellitus Type 1, Hx Diabetes Mellitus Type 2 Renal/ Medical History: Reports: Hx End Stage Renal Disease. Denies: Hx Peritoneal Dialysis GI Medical History: Denies: Hx Hepatitis, Hx Hiatal Hernia, Hx Ulcer Musculoskeltal Medical History: Reports Hx Arthritis - knee's, back, hips Psychiatric Medical History: Reports: Hx Depression Infectious Medical History: Denies: Hx Hepatitis Past Surgical History: Reports: Hx Appendectomy, Hx Section - x3, Hx Hysterectomy, Hx Orthopedic Surgery - roxie knee/roxie feet/right hand, Hx Tonsillectomy. Denies: Hx Mastectomy, Hx Open Heart Surgery, Hx Pacemaker - Immunizations Hx Diphtheria, Pertussis, Tetanus Vaccination: Yes History of Influenza Vaccine for 01/2017 - 06/2017 Season: Yes Physical Exam - Vital signs Vitals: Temp Pulse Resp BP Pulse Ox 98.1 F 123 H 16 126/84 H 99 07/18/18 09:19 07/18/18 09:19 07/18/18 09:19 07/18/18 09:19 07/18/18 09:19 Course - Vital Signs Vital signs: Temp Pulse Resp BP Pulse Ox 98.1 F 123 H 16 126/84 H 99 07/18/18 09:19 07/18/18 09:19 07/18/18 09:19 07/18/18 09:19 07/18/18 09:19 Doctor's Discharge - Discharge Referrals: SARA LAWRENCE PA-C [Primary Care Provider] - Follow up as needed
[2018-07-18 10:11] LABS: ABSOLUTE LYMPHOCYTES (AUTO) 1.6 10^3/uL (0.5-4.7); ABSOLUTE MONOCYTES (AUTO) 0.4 10^3/uL (0.1-1.4); ABSOLUTE NEUT (AUTO) 5.5 10^3/uL (1.7-8.2); BASOPHILS % (AUTO) 0.3 % (0-2); EOSINOPHILS % (AUTO) 0.1 % (0-6); HEMATOCRIT 35.2 % (36.0-47.0); HEMOGLOBIN 12.3 g/dL (12.0-15.5); LYMPHOCYTES % (AUTO) 21.3 % (13-45); MEAN CORPUSCULAR HEMOGLOBIN 36.1 pg (27.0-33.4); MEAN CORPUSCULAR HGB CONC 34.9 g/dL (32.0-36.0); MEAN CORPUSCULAR VOLUME 104 fl (80-97); MONOCYTES % (AUTO) 4.7 % (3-13); PLATELET COUNT 211 10^3/uL (150-450); RED CELL DISTRIBUTION WIDTH 14.8 % (11.5-14.0); SEGMENTED NEUTROPHILS % (AUTO) 73.6 % (42-78); TOTAL CELLS COUNTED % (AUTO) 100 %; WHITE BLOOD COUNT 7.5 10^3/uL (4.0-10.5)
[2018-07-18 10:33] LABS: ALANINE AMINOTRANSFERASE 53 U/L (9-52); ALBUMIN 3.3 g/dL (3.5-5.0); ALKALINE PHOSPHATASE 161 U/L (38-126); ANION GAP 10 (5-19); ASPARTATE AMINO TRANSFERASE 219 U/L (14-36); BILIRUBIN,DIRECT 0.4 mg/dL (0.0-0.4); BILIRUBIN,TOTAL 0.7 mg/dL (0.2-1.3); BLOOD UREA NITROGEN 10 mg/dL (7-20); CARBON DIOXIDE 26 mmol/L (22-30); CHLORIDE 92 mmol/L (98-107); GLUCOSE 141 mg/dL (75-110); POTASSIUM 3.6 mmol/L (3.6-5.0); SODIUM 128.2 mmol/L (137-145); TOTAL PROTEIN 5.8 g/dL (6.3-8.2)
[2018-07-18] MEDS: MAGNESIUM SULFATE/D5W 1 GM/100 ML RTUPB IV SCH ×2 (11:45→12:52)
--- NOTE | 2018-07-18 11:47 | ER Document Report ---
ED General - General Chief Complaint: Abnormal Lab Results Stated Complaint: ABNORMAL LABS Time Seen by Provider: 07/18/18 09:29 Primary Care Provider: SARA LAWRENCE PA-C [Primary Care Provider] - Follow up in 3-5 days Mode of Arrival: Ambulatory Notes: 63-year-old female patient emergency department chief complaint of abnormal labs. Patient has had chronic low magnesium levels. Has been followed by local doctor. Sent here because her magnesium level was "dangerously low". At this t kevon patient states that she has some chronic symptoms. 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 Intermittent loss of bowel function. States that this is been going on for approximately 1 year. Patient admits to drinking and smoking. Scheduled for an MRI shortly. TRAVEL OUTSIDE OF THE [place] IN LAST 30 DAYS: No - HPI Onset/Duration: Gradual Quality of pain: No pain Severity: Mild Pain Level: Denies Associated symptoms: None - 80 probably tolerate pressure - Related Data Allergies/Adverse Reactions: aspirin [Aspirin] Allergy (Verified 07/18/18 09:18) Past Medical History - General Information source: Patient - Social History Smoking Status: Current Every Day Smoker Frequency of alcohol use: Heavy Drug Abuse: None Lives with: Family Family History: CAD, Hypertension Patient has suicidal ideation: No Patient has homicidal ideation: No - Past Medical History Cardiac Medical History: Reports: Hx Hypercholesterolemia, Hx Hypertension Denies: Hx Coronary Artery Disease, Hx Heart Attack Pulmonary Medical History: Reports: Hx Asthma, Hx Pneumonia Denies: Hx Bronchitis, Hx COPD Neurological Medical History: Denies: Hx Cerebrovascular Accident, Hx Seizures Endocrine Medical History: Denies: Hx Diabetes Mellitus Type 1, Hx Diabetes Mellitus Type 2 Renal/ Medical History: Reports: Hx End Stage Renal Disease. Denies: Hx Peritoneal Dialysis GI Medical History: Denies: Hx Hepatitis, Hx Hiatal Hernia, Hx Ulcer Musculoskeletal Medical History: Reports Hx Arthritis - knee's, back, hips Psychiatric Medical History: Reports: Hx Depression Infectious Medical History: Denies: Hx Hepatitis Past Surgical History: Reports: Hx Appendectomy, Hx Section - x3, Hx Hysterectomy, Hx Orthopedic Surgery - roxie knee/roxie feet/right hand, Hx Tons illectomy. Denies: Hx Mastectomy, Hx Open Heart Surgery, Hx Pacemaker - Immunizations Hx Diphtheria, Pertussis, Tetanus Vaccination: Yes Review of Systems - Review of Systems Notes: Constitutional: denies: Chills, Diaphoresis, Fever, Malaise, Weakness does complain of some frequent falls. EENT: denies: Eye discharge, Blurred vision, Tearing, Double vision, Nose congestion, Nose discharge, Throat swelling, Mouth pain Cardiovascular: denies: Palpitations, Heart racing, Orthopnea, Dyspnea, Chest pain Respiratory: denies: Cough, Hurts to breathe, Wheezing, Shortness of breath Gastrointestinal: denies: Abdominal pain, Diarrhea, Nausea, Vomiting, Black stools, bright red blood in stool Genitourinary: denies: Burning, Dysuria, Discharge, Frequency, Flank pain, Hematuria Musculoskeletal: denies: Joint pain, Joint swelling, Muscle pain, Muscle stiffness, back pain Hematologic/Lymphatic: denies: Anemia, Easy bleeding, Easy bruising, Blood clots Neurological/Psychological: denies: Confusion, Dementia, Depression, Loss of consciousness Skin: No lesions, no masses, no skin breakdown, no abscesses Physical Exam - Vital signs Vitals: Temp Pulse Resp BP Pulse Ox 98.1 F 123 H 16 126/84 H 99 07/18/18 09:19 07/18/18 09:19 07/18/18 09:19 07/18/18 09:19 07/18/18 09:19 Interpretation: Tachycardic - General General appearance: Appears well, Alert - HEENT Head: Normocephalic, Atraumatic Eyes: Normal Pupils: PERRL - Respiratory Respiratory status: No respiratory distress Chest status: Nontender Breath sounds: Normal Chest palpation: Normal - Cardiovascular Rhythm: Tachycardia Heart sounds: Normal auscultation Murmur: No - Abdominal Inspection: Normal Distension: No distension Bowel sounds: Normal Tenderness: Nontender Organomegaly: No organomegaly - Back Back: Normal, Nontender - Extremities General upper extremity: Normal inspection, Nontender, Normal color, Normal ROM, Normal temperature General lower extremity: Normal inspection, Nontender, Normal color, Normal ROM, Normal temperature, Normal weight bearing. No: Meri's sign - Neurological Neuro grossly intact: Yes Cognition: Normal Orientation: AAOx4 Kareem Coma Scale Eye Opening: Spontaneous Kareem Coma Scale Verbal: Oriented Kareem Coma Scale Motor: Obeys Commands Kareem Coma Scale Total: 15 Speech: Normal Motor strength normal: LUE, RUE, LLE, RLE Sensory: Normal - Psychological Associated symptoms: Normal affect, Normal mood - Skin Skin Temperature: Warm Skin Moisture: Dry Skin Color: Normal Course - Re-evaluation Re-evalutation: 07/18/18 12:39 Patient reports that she has multiple whiskey drinks every day. I think more likely patient is suffering from some liver disease with her heavy alcohol history and due to these recurrent electrolyte issues more likely the alcohol is contributing to that as well. She also has come chronic kidney disease. Looking at her differential on her MCV would suggest more of a chronic B vitamin deficiency. I am replacing the magnesium at this time. Will replace her sodium with some normal saline as well as some thiamine and folate. Anticipate patient will be here for some time getting these infusions but will likely be able to be discharged. 07/18/18 13:48 Patient has some mild hyponatremia and significant hypo-magnesium level. Patient currently is asymptomatic. Had a long discussion about her alcohol intake and talking to her doctor about that as she would benefit from having no alcohol intake. She has magnesium supplementation at home. Her physical exam is unremarkable. Patient would like to go home. She has had no significant muscular problems. All of her problems that she does report have been present for almost a year but no significant change in symptoms. At this time I think t his is appropriate. Repeat check of her reflexes appears within normal limits. Will DC at this time in stable condition. Laboratory 07/18/18 07/18/18 07/18/18 09:57 09:57 09:57 WBC 7.5 RBC 3.40 L Hgb 12.3 Hct 35.2 L MCV 104 H MCH 36.1 H MCHC 34.9 RDW 14.8 H Plt Count 211 Seg Neutrophils % 73.6 Lymphocytes % 21.3 Monocytes % 4.7 Eosinophils % 0.1 Basophils % 0.3 Absolute Neutrophils 5.5 Absolute Lymphocytes 1.6 Absolute Monocytes 0.4 Absolute Eosinophils 0.0 Absolute Basophils 0.0 Sodium 128.2 L Potassium 3.6 Chloride 92 L Carbon Dioxide 26 Anion Gap 10 BUN 10 Creatinine 0.88 Est GFR ( Amer) > 60 Est GFR (Non-Af Amer) > 60 Glucose 141 H Calcium 9.0 Magnesium 1.1 L* Total Bilirubin 0.7 Direct Bilirubin 0.4 Neonat Total Bilirubin Not Reportable Neonat Direct Bilirubin Not Reportable Neonat Indirect Bili Not Reportable AST 219 H ALT 53 H Alkaline Phosphatase 161 H Total Protein 5.8 L Albumin 3.3 L Lipase 44.9 Serum Alcohol 07/18/18 09:57 WBC RBC Hgb Hct MCV MCH MCHC RDW Plt Count Seg Neutrophils % Lymphocytes % Monocytes % Eosinophils % Basophils % Absolute Neutrophils Absolute Lymphocytes Absolute Monocytes Absolute Eosinophils Absolute Basophils Sodium Potassium Chloride Carbon Dioxide Anion Gap BUN Creatinine Est GFR ( Amer) Est GFR (Non-Af Amer) Glucose Calcium Magnesium Total Bilirubin Direct Bilirubin Neonat Total Bilirubin Neonat Direct Bilirubin Neonat Indirect Bili AST ALT Alkaline Phosphatase Total Protein Albumin Lipase Serum Alcohol < 10 07/18/18 13:50 - Vital Signs Vital signs: Temp Pulse Resp BP Pulse Ox 98.1 F 123 H 17 144/96 H 100 07/18/18 09:19 07/18/18 09:19 07/18/18 13:10 07/18/18 13:10 07/18/18 13:10 - Laboratory Result Diagrams: 07/18/18 09:57 07/18/18 09:57 Laboratory results interpreted by me: 07/18/18 07/18/18 09:57 09:57 RBC 3.40 L Hct 35.2 L MCV 104 H MCH 36.1 H RDW 14.8 H Sodium 128.2 L Chloride 92 L Glucose 141 H Magnesium 1.1 L* AST 219 H ALT 53 H Alkaline Phosphatase 161 H Total Protein 5.8 L Albumin 3.3 L - EKG Interpretation by Me EKG shows normal: Sinus rhythm, Romulus, Intervals, QRS Complexes, ST-T Waves Discharge - Discharge Clinical Impression: Hypomagnesemia syndrome Condition: Good Disposition: HOME, SELF-CARE Additional Instructions: Your labs revealed that your magnesium level was low today. Your sodium level was low. Make sure that you are taking in plenty of salt. Begin supplementing with magnesium in the amount of 1 g in the morning and 1 g in the evening. It may require that you work up to this 2 g a day dosing. Initial side effects from having too much magnesium supplementation can be diarrhea. Some different forms of magnesium are more easy to tolerate. Magnesium glycinate as well as magnesium malate seem to be tolerated better. Regardless, you will need follow- up evaluation by your primary care doctor. I recommend decreasing your alcohol intake to preferably none daily as the workup for your neuropathies is in progress. Referrals: SARA LAWRENCE PA-C [Primary Care Provider] - Follow up in 3-5 days
[2018-07-18] MEDS ORDERED: NORMAL SALINE 1000 ML 1,000 ML IV ONE (12:32)
[2018-07-18] MEDS ORDERED: THIAMINE HCL 100 MG, FOLIC ACID 1 MG in NORMAL SALINE 250 ML IV ONE (12:37)
[2018-07-18] MEDS ORDERED: MAGNESIUM OXIDE 400 MG TABLET PO ONE (13:42)
[2018-07-18 14:55] VITALS: BP 147/86
--- NOTE | 2018-07-19 11:06 | EKG REPORT ---
SEVERITY:- NORMAL ECG - SINUS RHYTHM : Confirmed by: Matthew Cerna 19-Jul-2018 11:05:43
== END 2018-07-18 14:40 | disposition home or self-care (01) ==
LOC: ER 09:12
DX: E83.42 Hypomagnesemia (principal); I12.9 Hypertensive chronic kidney disease with stage 1 through stage 4 chronic kidney disease, or unspecified chronic kidney disease; N18.9 Chronic kidney disease, unspecified; R00.0 Tachycardia, unspecified; F17.200 Nicotine dependence, unspecified, uncomplicated; J45.909 Unspecified asthma, uncomplicated; Z88.6 Allergy status to analgesic agent; E87.6 Hypokalemia
CPT/HCPCS: 93005; 99284; 96365; 96366; 96367; 36415; 80307; 83690; 83735; 85025; 80053; 93010; J3490; J3475; J3411; J7030; J7050

== ENCOUNTER 2018-08-29 11:34 | Emergency (ER) | payer OTHER ==
[2018-08-29] MEDS ORDERED: ONDANSETRON 4 MG TAB.RAPDIS PO ONE (12:14)
[2018-08-29] MEDS ORDERED: MORPHINE SULFATE 10 MG/ML INJ IM ONE (12:14)
[2018-08-29] MEDS ORDERED: DIPH/PERTUSS(ACELL)/TETANUS VAC/PF 0.5 ML SYR (>=10YO) IM ONE (12:15)
--- NOTE | 2018-08-29 12:16 | ER Document Report ---
ED Medical Screen (RME) - General Chief Complaint: Arm Injury Stated Complaint: FALL/LEFT ARM,SHOULDER INJURY Time Seen by Provider: 08/29/18 12:05 Primary Care Provider: SARA LAWRENCE PA-C [Primary Care Provider] - Follow up as needed Mode of Arrival: Ambulatory Information source: Patient TRAVEL OUTSIDE OF THE [place] IN LAST 30 DAYS: No - HPI Patient complains to provider of: LEFT ARM PAIN Notes: 08/29/18 12:15 Patient here with complaints of left humerus pain. Patient states she tripped walking into her house and injured her left arm. She denies striking her head. No loss of consciousness. Complains of left arm pain. She states she also scraped her knees, but her knees do not hurt much. Exam No distress, nontoxic-appearing. Hematoma to the left mid humerus with tenderness. Normal pulse and sensation distally. Abrasion of the right anterior knee. Minimal tenderness to palpation of the anterior knees bilaterally. Plan Patient declined x-rays of the knees. X-ray of the humerus has been ordered. We will update her tetanus as well as give her morphine and Zofran. An initial examination was made on the patient as part of the triage process, and it was determined a more comprehensive evaluation was necessary. Initial labs were ordered and patient was transferred to another provider in the ED who assumed care and finished evaluation and plan. 08/29/18 12:15 - Related Data Allergies/Adverse Reactions: aspirin [Aspirin] Allergy (Verified 07/18/18 09:18) Past Medical History - Past Medical History Cardiac Medical History: Reports: Hx Hypercholesterolemia, Hx Hypertension Denies: Hx Coronary Artery Disease, Hx Heart Attack Pulmonary Medical History: Reports: Hx Asthma, Hx Pneumonia Denies: Hx Bronchitis, Hx COPD Neurological Medical History: Denies: Hx Cerebrovascular Accident, Hx Seizures Endocrine Medical History: Denies: Hx Diabetes Mellitus Type 1, Hx Diabetes Mellitus Type 2 Renal/ Medical History: Reports: Hx End Stage Renal Disease. Denies: Hx Peritoneal Dialysis GI Medical History: Denies: Hx Hepatitis, Hx Hiatal Hernia, Hx Ulcer Musculoskeltal Medical History: Reports Hx Arthritis - knee's, back, hips Psychiatric Medical History: Reports: Hx Depression Infectious Medical History: Denies: Hx Hepatitis Past Surgical History: Reports: Hx Appendectomy, Hx Section - x3, Hx Hysterectomy, Hx Orthopedic Surgery - roxie knee/roxie feet/right hand, Hx Tonsillectomy. Denies: Hx Mastectomy, Hx Open Heart Surgery, Hx Pacemaker - Immunizations Hx Diphtheria, Pertussis, Tetanus Vaccination: Yes History of Influenza Vaccine for 01/2017 - 06/2017 Season: Yes Physical Exam - Vital signs Vitals: Temp Pulse Resp BP Pulse Ox 97.5 F 93 16 105/80 96 08/29/18 11:42 08/29/18 11:42 08/29/18 11:42 08/29/18 11:42 08/29/18 11:42 Course - Vital Signs Vital signs: Temp Pulse Resp BP Pulse Ox 97.5 F 93 16 105/80 96 08/29/18 11:42 08/29/18 11:42 08/29/18 11:42 08/29/18 11:42 08/29/18 11:42 Doctor's Discharge - Discharge Referrals: SARA LAWRENCE PA-C [Primary Care Provider] - Follow up as needed
--- NOTE | 2018-08-29 12:58 | RADIOLOGY REPORT (SQ) ---
EXAM DESCRIPTION: HUMERUS LEFT COMPLETED DATE/TIME: 08/29/2018 12:48 pm REASON FOR STUDY: FALL, MIDSHAFT PAIN COMPARISON: None. NUMBER OF VIEWS: Two views. TECHNIQUE: Two radiographic images were acquired of the left humerus to include elbow and shoulder i n at least one projection. LIMITATIONS: None. FINDINGS: MINERALIZATION: Normal. BONES: There is an oblique fracture through the proximal 3rd of left humerus. Mild distraction. 2nd cortical fracture is seen extending toward the humeral head. SOFT TISSUES: No obvious swelling or foreign body. OTHER: No other significant finding. IMPRESSION: Comminuted proximal left humerus fracture. TECHNICAL DOCUMENTATION: JOB ID: [id number] [employer]- All Rights Reserved Reading location - IP/workstation name: [email or web address]
--- NOTE | 2018-08-29 13:18 | ER Document Report ---
ED Extremity Problem, Upper - General Chief Complaint: Arm Injury Stated Complaint: FALL/LEFT ARM,SHOULDER INJURY Time Seen by Provider: 08/29/18 12:05 Primary Care Provider: SARA LAWRENCE PA-C [Primary Care Provider] - Follow up as needed Mode of Arrival: Ambulatory Information source: Patient TRAVEL OUTSIDE OF THE [place] IN LAST 30 DAYS: No - HPI Patient complains to provider of: Injury Notes: Patient here with complaints of left arm pain. The patient states she was walking into her home when she tripped over the threshold and injured her left upper arm. She did not strike her head. No loss of consciousness. She denies any neck, back, chest, abdominal pain. She states she also scraped up her knees. Last tetanus has been longer than 5 years. She denies any nausea, vomiting, diarrhea. No blurred or loss vision. No rash. No other injuries or complaints. - Related Data Allergies/Adverse Reactions: aspirin [Aspirin] Allergy (Verified 07/18/18 09:18) Past Medical History - General Information source: Patient - Social History Smoking Status: Current Every Day Smoker Chew tobacco use (# tins/day): No Frequency of alcohol use: Occasional Drug Abuse: None Family History: CAD, Hypertension Patient has suicidal ideation: No Patient has homicidal ideation: No - Past Medical History Cardiac Medical History: Reports: Hx Hypercholesterolemia, Hx Hypertension Denies: Hx Coronary Artery Disease, Hx Heart Attack Pulmonary Medical History: Reports: Hx Asthma, Hx Pneumonia Denies: Hx Bronchitis, Hx COPD Neurological Medical History: Denies: Hx Cerebrovascular Accident, Hx Seizures Endocrine Medical History: Denies: Hx Diabetes Mellitus Type 1, Hx Diabetes Mellitus Type 2 Renal/ Medical History: Reports: Hx End Stage Renal Disease. Denies: Hx Peritoneal Dialysis GI Medical History: Denies: Hx Hepatitis, Hx Hiatal Hernia, Hx Ulcer Musculoskeletal Medical History: Reports Hx Arthritis - knee's, back, hips Psychiatric Medical History: Reports: Hx Depression Infectious Medical History: Denies: Hx Hepatitis Past Surgical History: Reports: Hx Appendectomy, Hx Section - x3, Hx Hysterectomy, Hx Orthopedic Surgery - roxie knee/roxie feet/right hand, Hx Tonsillectomy. Denies: Hx Mastectomy, Hx Open Heart Surgery, Hx Pacemaker - Immunizations Hx Diphtheria, Pertussis, Tetanus Vaccination: Yes Review of Systems - Review of Systems -: Yes All other systems reviewed and negative Physical Exam - Vital signs Vitals: Temp Pulse Resp BP Pulse Ox 97.5 F 93 16 105/80 96 08/29/18 11:42 08/29/18 11:42 08/29/18 11:42 08/29/18 11:42 08/29/18 11:42 - Notes Notes: GENERAL: alert, cooperative, nontoxic, no distress. HEAD: normocephalic, atraumatic EYES: conjunctiva pink without discharge, no external redness or swelling. PERRL, EOM'S INTACT EARS: no external swelling, no external redness. No hemotympanum EM NOSE: atraumatic, no external swelling. No bleeding MOUTH/THROAT: mucous membranes moist and pink, posterior pharynx without erythema, swelling, exudate. No trismus or drooling. NECK: soft, supple, full range of motion, no meningismus. No midline tenderness step-offs or crepitus to palpation of the cervical spine. CHEST: no distress, lungs clear and equal throughout. No wheezing, rales, rhonchi. CARDIAC: regular rate and rhythm, no murmur, normal capillary refill, normal pulses. No peripheral edema noted. ABDOMEN: Soft, nontender. No ecchymosis. BACK: full range of motion, no CVA tenderness. No midline tenderness step-offs or crepitus to palpation of the thoracic or lumbar spine. EXTREMITIES: Swelling to the left mid humerus with tenderness to palpation. Limited range of motion due to pain. No tenderness to palpation of the shoulder or elbow. Normal pulse and sensation distally. Mild tenderness to palpation of the left anterior knee with no ligament instability. Full range of motion with normal straight leg raise, no effusion, no redness. Normal pulse and sensation distally. Superficial abrasion to the right anterior knee with mild tenderness to palpation. Full range of motion. No ligament instability. Normal straight leg raise. Normal pulse and sensation distally. NEURO: alert and oriented x 3, no focal deficits, full range of motion of all extremities. Cranial nerves II through XII are grossly intact. Reflexes are normal bilaterally. Normal sensation bilaterally. Normal strength bilaterally. PYSCH: appropriate mood, affect. Patient is cooperative. SKIN: pink, warm, dry, no rash. Course - Re-evaluation Re-evalutation: 08/29/18 13:16 Patient is nontoxic-appearing with stable vitals. Patient here with complaints of left upper arm pain after fall. No head injury. She has some superficial abrasion to the right knee and contusion to the left knee. she was offered x- rays of the knees, but declined. X-ray left humerus shows a comminuted mildly displaced fracture of the left mid humerus. Patient was placed in a sling and swath. She will be discharged home with prescription for [place] and instructions to follow-up with orthopedics at the next available appointment. Compartments are soft, neurovascularly intact. No other signs of injury or complaints. The patient's emergency department workup and current diagnosis were explained to the patient and or family. Follow-up instructions were provided. Medications if prescribed were discussed. Instructions for when to return to the emergency department including specific worrisome symptoms were discussed with the patient and/or family. - Vital Signs Vital signs: Temp Pulse Resp BP Pulse Ox 97.5 F 93 16 105/80 96 08/29/18 11:42 08/29/18 11:42 08/29/18 11:42 08/29/18 11:42 08/29/18 11:42 - Diagnostic Test Radiology reviewed: Image reviewed, Reports reviewed - Comminuted mildly displaced left humerus fracture. Procedures - Immobilization Left arm Pre-Proc Neuro Vasc Exam: Normal Immobilizer type: Shoulder immobilizer Performed by: PCT Post-Proc Neuro Vasc Exam: Normal Alignment checked and good: Yes Discharge - Discharge Clinical Impression: Left humeral fracture Qualifiers: Encounter type: initial encounter Humerus Location: proximal Fracture type: closed Fracture morphology: other fracture Fracture alignment: displaced Qualified Code(s): S42.292A - Other displaced fracture of upper end of left humerus, initial encounter for closed fracture Condition: Stable Disposition: HOME, SELF-CARE Instructions: Fracture Proximal Humerus Additional Instructions: Take medication as prescribed. Drink plenty fluids. Ice to sore area. Follow- up with orthopedics at the next available appointment. Call make a follow-up appoint with them today. Follow-up sooner for worsening pain, fever, numbness, tingling, weakness, any further concerns. Prescriptions: Hydrocodone/Acetaminophen [[place] 5-325 mg Tablet] 1 tab PO Q4H PRN #15 tab PRN Reason: Forms: Smoking Cessation Education Referrals: SARA LAWRENCE PA-C [Primary Care Provider] - Follow up as needed JESSI SALVADOR MD [ASSOCIATE] - Follow up as needed
[2018-08-29 14:33] VITALS: BP 94/53
== END 2018-08-29 14:28 | disposition home or self-care (01) ==
LOC: ER 11:34
DX: S42.292A Other displaced fracture of upper end of left humerus, initial encounter for closed fracture (principal); S80.212A Abrasion, left knee, initial encounter; S80.211A Abrasion, right knee, initial encounter; M79.602 Pain in left arm; W18.09XA Striking against other object with subsequent fall, initial encounter; F17.200 Nicotine dependence, unspecified, uncomplicated; I10 Essential (primary) hypertension; J45.909 Unspecified asthma, uncomplicated
CPT/HCPCS: 99283; 96372; 90471; 73060; 90715; L3650; S0119; J2270

== ENCOUNTER 2018-09-18 15:48 | Emergency (ER) | payer OTHER ==
--- NOTE | 2018-09-18 16:34 | ER Document Report ---
ED Medical Screen (RME) - General Chief Complaint: Blood Pressure Problem Stated Complaint: BLOOD PRESSURE PROBLEM Primary Care Provider: INDU BORJA PA-C [Primary Care Provider] - Follow up as needed TRAVEL OUTSIDE OF THE [place] IN LAST 30 DAYS: No - HPI Notes: 09/18/18 16:32 Patient is a 63-year-old female with a history of hypertension (not on medications), TIA, COPD, dyslipidemia, TIA (on Plavix), pancreatitis with alcohol and tobacco dependence who presents for evaluation of elevated blood pressure. Patient states that she has not had issues with her blood pressure for several months. She she was about to have surgery for her humerus today when they noticed the elevated blood pressure, borderline low magnesium, and she was still taking her Plavix which caused her surgery to be canceled. They sent her here for evaluation. Patient states that she is otherwise feeling well and is eating and drinking without difficulty. She is urinating normally. No other concerns or complaints. Denies GONZALEZ, fever, neck pain, URI, CP, SOB, Abd pain, dysuria, back pain, or rash. I have treated and performed a rapid initial assessment of this patient. A comprehensive ED assessment and evaluation of the patient, analysis of test results and completion of medical decision making process will be conducted by additional ED providers. PHYSICAL EXAMINATION: GENERAL: Well-appearing, well-nourished and in no acute distress. A&Ox4. Answers questions appropriately. LUNGS: Breath sounds clear to auscultation bilaterally and equal. No wheezes rales or rhonchi. HEART: Regular rate and rhythm without murmurs, rubs, gallops. Extremities: No cyanosis, clubbing, or edema b/l. NEUROLOGICAL: Normal speech, normal gait. PSYCH: Normal mood, normal affect. - Related Data Allergies/Adverse Reactions: aspirin [Aspirin] Allergy (Verified 09/18/18 16:18) Past Medical History - Past Medical History Cardiac Medical History: Reports: Hx Hypercholesterolemia, Hx Hypertension Denies: Hx Coronary Artery Disease, Hx Heart Attack Pulmonary Medical History: Reports: Hx Asthma, Hx Pneumonia Denies: Hx Bronchitis, Hx COPD Neurological Medical History: Denies: Hx Cerebrovascular Accident, Hx Seizures Endocrine Medical History: Denies: Hx Diabetes Mellitus Type 1, Hx Diabetes Mellitus Type 2 Renal/ Medical History: Reports: Hx End Stage Renal Disease. Denies: Hx Peritoneal Dialysis GI Medical History: Denies: Hx Hepatitis, Hx Hiatal Hernia, Hx Ulcer Musculoskeltal Medical History: Reports Hx Arthritis - knee's, back, hips Psychiatric Medical History: Reports: Hx Depression Infectious Medical History: Denies: Hx Hepatitis Past Surgical History: Reports: Hx Appendectomy, Hx Section - x3, Hx Hysterectomy, Hx Orthopedic Surgery - roxie knee/roxie feet/right hand, Hx Tonsillectomy. Denies: Hx Mastectomy, Hx Open Heart Surgery, Hx Pacemaker - Immunizations Hx Diphtheria, Pertussis, Tetanus Vaccination: Yes History of Influenza Vaccine for 01/2017 - 06/2017 Season: Yes Physical Exam - Vital signs Vitals: Temp Pulse Resp BP Pulse Ox 97.6 F 94 18 151/117 H 98 09/18/18 16:16 09/18/18 16:16 09/18/18 16:16 09/18/18 16:16 09/18/18 16:16 Course - Vital Signs Vital signs: Temp Pulse Resp BP Pulse Ox 97.6 F 94 18 151/117 H 98 09/18/18 16:16 09/18/18 16:16 09/18/18 16:16 09/18/18 16:16 09/18/18 16:16 Doctor's Discharge - Discharge Referrals: INDU BORJA PA-C [Primary Care Provider] - Follow up as needed
[2018-09-18 17:17] LABS: ANION GAP 10 (5-19); BLOOD UREA NITROGEN 3 mg/dL (7-20); CALCIUM 9.3 mg/dL (8.4-10.2); CARBON DIOXIDE 27 mmol/L (22-30); CHLORIDE 100 mmol/L (98-107); GLUCOSE 97 mg/dL (75-110); SODIUM 136.5 mmol/L (137-145)
--- NOTE | 2018-09-18 19:30 | ER Document Report ---
ED General - General Chief Complaint: Blood Pressure Problem Stated Complaint: BLOOD PRESSURE PROBLEM Time Seen by Provider: 09/18/18 16:34 Primary Care Provider: INDU BORJA PA-C [Primary Care Provider] - Follow up as needed Notes: Patient is a 63-year-old female with a history of hypertension (not on medications as her blood pressures continue to come down and she no longer needed them), TIA, COPD, dyslipidemia, TIA (on Plavix), pancreatitis with alcohol and tobacco dependence who presents for evaluation of elevated blood pressure. Patient states that she has not had issues with her blood pressure for several months. Has been checking blood pressures regularly at home as has home nursing and states that they are typically in the low 100 systolic. She she was about to have surgery for her humerus today when they noticed the elevated blood pressure, borderline low magnesium, and she was still taking her Plavix which caused her surgery to be canceled. They sent her here for evaluation. Patient states that she is otherwise feeling well and is eating and drinking without difficulty. The patient denies any new complaints and is not sure why she was sent to the emergency department. TRAVEL OUTSIDE OF THE [place] IN LAST 30 DAYS: No - HPI Patient complains to provider of: Essential hypertension Onset: Just prior to arrival Onset/Duration: Constant Quality of pain: No pain Severity: None Pain Level: Denies Associated symptoms: None Exacerbated by: Denies Relieved by: Denies Similar symptoms previously: Yes Recently seen / treated by doctor: Yes - Related Data Allergies/Adverse Reactions: aspirin [Aspirin] Allergy (Verified 09/18/18 16:18) Past Medical History - General Information source: Patient - Social History Smoking Status: Current Every Day Smoker Frequency of alcohol use: None Drug Abuse: None Lives with: Family Family History: CAD, Hypertension Patient has suicidal ideation: No Patient has homicidal ideation: No - Past Medical History Cardiac Medical History: Reports: Hx Hypercholesterolemia, Hx Hypertension Denies: Hx Coronary Artery Disease, Hx Heart Attack Pulmonary Medical History: Reports: Hx Asthma, Hx Pneumonia Denies: Hx Bronchitis, Hx COPD Neurological Medical History: Denies: Hx Cerebrovascular Accident, Hx Seizures Endocrine Medical History: Denies: Hx Diabetes Mellitus Type 1, Hx Diabetes Mellitus Type 2 Renal/ Medical History: Reports: Hx End Stage Renal Disease. Denies: Hx Peritoneal Dialysis GI Medical History: Denies: Hx Hepatitis, Hx Hiatal Hernia, Hx Ulcer Musculoskeletal Medical History: Reports Hx Arthritis - knee's, back, hips Psychiatric Medical History: Reports: Hx Depression Infectious Medical History: Denies: Hx Hepatitis Past Surgical History: Reports: Hx Appendectomy, Hx Section - x3, Hx Hysterectomy, Hx Orthopedic Surgery - roxie knee/roxie feet/right hand, Hx Tonsillectomy. Denies: Hx Mastectomy, Hx Open Heart Surgery, Hx Pacemaker - Immunizations Hx Diphtheria, Pertussis, Tetanus Vaccination: Yes Review of Systems - Review of Systems Notes: Constitutional: Negative for fever. HENT: Negative for sore throat. Eyes: Negative for visual changes. Cardiovascular: Negative for chest pain. Respiratory: Negative for shortness of breath. Gastrointestinal: Negative for abdominal pain, vomiting or diarrhea. Genitourinary: Negative for dysuria. Musculoskeletal: Negative for back pain. Skin: Negative for rash. Neurological: Negative for headaches, weakness or numbness. 10 point ROS negative except as marked above and in HPI. Physical Exam - Vital signs Vitals: Temp Pulse Resp BP Pulse Ox 97.6 F 94 18 151/117 H 98 09/18/18 16:16 09/18/18 16:16 09/18/18 16:16 09/18/18 16:16 09/18/18 16:16 Interpretation: Hypertensive Notes: PHYSICAL EXAMINATION: GENERAL: Well-appearing, well-nourished and in no acute distress. HEAD: Atraumatic, normocephalic. EYES: Pupils equal round and reactive to light, extraocular movements intact, sclera anicteric, conjunctiva are normal. ENT: nares patent, oropharynx clear without exudates. Moist mucous membranes. NECK: Normal range of motion, supple without lymphadenopathy LUNGS: Breath sounds clear to auscultation bilaterally and equal. No wheezes rales or rhonchi. HEART: Regular rate and rhythm without murmurs ABDOMEN: Soft, nontender, normoactive bowel sounds. No guarding, no rebound. No masses appreciated. EXTREMITIES: Left upper extremity is immobilized, no pitting or edema. No cyanosis. NEUROLOGICAL: No focal neurological deficits. Moves all extremities spontaneously and on command. PSYCH: Normal mood, normal affect. SKIN: Warm, Dry, normal turgor, no rashes or lesions noted. Course - Re-evaluation Re-evalutation: 09/18/18 19:29 Presentation of asymptomatic hypertension. Patient denies any symptoms concerning for SAH, dissection, DE, or encephalopaty. Alert, oriented, and denies any symptoms at time of assessment. Normal neuro exam. Per [facility] policy guidelines, will therefore not obtain any labs or EKG at this time and will not initiate new BP treatment. It also sounds that the patient does not actually have high blood pressure at baseline based on home blood pressure readings and does admit that she was extraordinarily anxious prior to surgery today likely causing her blood pressure to become elevated. Given the absence of any symptoms at this time I believe it is safe for the patient be discharged home continue to following her blood pressures at home. At this time will discharge with return precautions and follow-up recommendations. Verbal discharge instructions given a the bedside and opportunity for questions given. Patient i s in agreement with this plan and has verbalized understanding of return precautions and the need for primary care follow-up in the next 24-72 hours. - Vital Signs Vital signs: Temp Pulse Resp BP Pulse Ox 97.6 F 94 18 168/105 H 99 09/18/18 16:16 09/18/18 16:16 09/18/18 18:31 09/18/18 18:31 09/18/18 18:31 - Laboratory Result Diagrams: 09/18/18 16:41 Laboratory results interpreted by me: 09/18/18 16:41 Sodium 136.5 L BUN 3 L Discharge - Discharge Clinical Impression: Essential hypertension Condition: Good Disposition: HOME, SELF-CARE Additional Instructions: You were seen today for blood pressure that was high. Please monitor your blood pressures at home to verify whether or not this is actually a true new blood pressure for you or if this was related to anxiety and pain prior to your surgery today. Return if you develop headache, weakness, numbness, chest pain, pass out, or have any other symptoms that are concerning to you. Referrals: INDU BORJA PA-C [Primary Care Provider] - Follow up as needed
[2018-09-18 19:35] VITALS: BP 172/108
== END 2018-09-18 19:47 | disposition home or self-care (01) ==
LOC: ER 15:48
DX: I12.0 Hypertensive chronic kidney disease with stage 5 chronic kidney disease or end stage renal disease (principal); N18.6 End stage renal disease; F17.200 Nicotine dependence, unspecified, uncomplicated; E78.00 Pure hypercholesterolemia, unspecified; Z88.6 Allergy status to analgesic agent; Z90.710 Acquired absence of both cervix and uterus
CPT/HCPCS: 36415; 83735; 99283

== ENCOUNTER → 2018-09-18 | Day surgery (SDC) | payer OTHER ==
[~2018-09-18] MED LIST: ACETAMINOPHEN 325 MG TABLET ONE; CARVEDILOL 12.5 MG TABLET PO ONE; CEFAZOLIN 2 GM/D5W RTU 0 GM/0 ML RTUPB IV ONE; CEFAZOLIN 2 GM/D5W RTU 2 GM/50 ML RTUPB IV PRN; DEXAMETHASONE SOD PHOSPHATE INJ 4 MG/1 ML VIAL ONE; FENTANYL CITRATE INJ/PF 100 MCG/2 ML AMPUL ONE; MIDAZOLAM 2 MG/2 ML INJ ONE; ONDANSETRON HCL INJ/PF 4 MG/2 ML SDV ONE; PROPOFOL INJ 200 MG/20 ML VIAL IV ONE
--- NOTE | 2018-09-18 12:51 | RADIOLOGY REPORT (SQ) ---
EXAM DESCRIPTION: CHEST SINGLE VIEW COMPLETED DATE/TIME: 09/18/2018 12:43 pm REASON FOR STUDY: PREOP COMPARISON: 07/04/2018 EXAM PARAMETERS: NUMBER OF VIEWS: One view. TECHNIQUE: Single frontal radiographic view of the chest acquired. RADIATION DOSE: NA LIMITATIONS: None. FINDINGS: LUNGS AND PLEURA: No opacities, masses or pneumothorax. No pleural effusion. MEDIASTINUM AND HILAR STRUCTURES: No masses. Contour normal. HEART AND VASCULAR STRUCTURES: Heart normal in size. The thoracic aorta is tortuous, stable finding. Normal vasculature. BONES: No acute findings. HARDWARE: None in the chest. OTHER: No other significant finding. IMPRESSION: 1. No significant interval changes since the prior examination dated 07/04/2018. No acu te findings. TECHNICAL DOCUMENTATION: JOB ID: [id number] [employer]- All Rights Reserved Reading location - IP/workstation name: [email or web address]
[2018-09-18 13:00] LABS: HEMATOCRIT 35.6 % (36.0-47.0); MEAN CORPUSCULAR HEMOGLOBIN 36.1 pg (27.0-33.4); MEAN CORPUSCULAR HGB CONC 33.7 g/dL (32.0-36.0); MEAN CORPUSCULAR VOLUME 107 fl (80-97); PLATELET COUNT 324 10^3/uL (150-450); RED BLOOD COUNT 3.32 10^6/uL (3.72-5.28); RED CELL DISTRIBUTION WIDTH 14.7 % (11.5-14.0); WHITE BLOOD COUNT 4.7 10^3/uL (4.0-10.5)
[2018-09-18 13:22] LABS: ALANINE AMINOTRANSFERASE 24 U/L (9-52); ALBUMIN 3.1 g/dL (3.5-5.0); ALKALINE PHOSPHATASE 189 U/L (38-126); ANION GAP 8 (5-19); ASPARTATE AMINO TRANSFERASE 54 U/L (14-36); BILIRUBIN,DIRECT 0.4 mg/dL (0.0-0.4); BILIRUBIN,TOTAL 0.5 mg/dL (0.2-1.3); BLOOD UREA NITROGEN 3 mg/dL (7-20); CALCIUM 9.1 mg/dL (8.4-10.2); CARBON DIOXIDE 26 mmol/L (22-30); CHLORIDE 102 mmol/L (98-107); GLUCOSE 90 mg/dL (75-110); POTASSIUM 4.4 mmol/L (3.6-5.0); SODIUM 136.3 mmol/L (137-145); TOTAL PROTEIN 5.5 g/dL (6.3-8.2)
[2018-09-18 13:39] LABS: PHOSPHORUS 4.7 mg/dL (2.5-4.5)
[2018-09-18 13:51] VITALS: BP 163/127
--- NOTE | 2018-09-18 18:27 | EKG REPORT ---
SEVERITY:- ABNORMAL ECG - SINUS TACHYCARDIA BIATRIAL ABNORMALITIES PROBABLE INFERIOR INFARCT, OLD : Confirmed by: Robin Tobin MD 18-Sep-2018 18:26:03
--- NOTE | 2018-09-18 18:27 | EKG REPORT ---
SEVERITY:- OTHERWISE NORMAL ECG - SINUS TACHYCARDIA LOW VOLTAGE IN FRONTAL LEADS : Confirmed by: Robin Tobin MD 18-Sep-2018 18:25:47
== END ==
LOC: OROUT 12:16
PROVIDERS: ATTEND Orthopaedic Surgery
DX: Z01.818 Encounter for other preprocedural examination (principal); R00.0 Tachycardia, unspecified; R93.1 Abnormal findings on diagnostic imaging of heart and coronary circulation
CPT/HCPCS: 36415; 71045; 80053; 83735; 84100; 85027; 93005; 93010; J0690; J1100; J2250; J2405; J2704; J3010

== ENCOUNTER 2018-09-24 08:11 | Day surgery (SDC) | payer OTHER ==
[~2018-09-24 08:11] MED LIST changes: -ACETAMINOPHEN 325 MG TABLET ONE; -CARVEDILOL 12.5 MG TABLET PO ONE; -CEFAZOLIN 2 GM/D5W RTU 0 GM/0 ML RTUPB IV ONE; +CEFAZOLIN 2 GM/D5W RTU 2 GM/50 ML RTUPB IV ONE; +VANCOMYCIN HCL 1,000 MG in DEXTROSE 5%-WATER 250 ML IV PRN
[2018-09-24 08:34] LABS: HEMATOCRIT 39.5 % (36.0-47.0); HEMOGLOBIN 13.4 g/dL (12.0-15.5); MEAN CORPUSCULAR HEMOGLOBIN 36.3 pg (27.0-33.4); MEAN CORPUSCULAR VOLUME 107 fl (80-97); PLATELET COUNT 248 10^3/uL (150-450); RED BLOOD COUNT 3.71 10^6/uL (3.72-5.28); RED CELL DISTRIBUTION WIDTH 14.2 % (11.5-14.0); WHITE BLOOD COUNT 4.4 10^3/uL (4.0-10.5)
[2018-09-24 08:44] LABS: INTERNATIONAL RATION (INR) 0.86; PARTIAL THROMBOPLASTIN TIME 27.2 SEC (23.5-35.8); PROTHROMBIN TIME 12.2 SEC (11.4-15.4)
[2018-09-24 09:05] LABS: ANION GAP 8 (5-19); BLOOD UREA NITROGEN 6 mg/dL (7-20); CALCIUM 9.5 mg/dL (8.4-10.2); CARBON DIOXIDE 28 mmol/L (22-30); CHLORIDE 101 mmol/L (98-107); GLUCOSE 105 mg/dL (75-110); POTASSIUM 4.6 mmol/L (3.6-5.0); SODIUM 136.7 mmol/L (137-145)
[2018-09-24] MEDS ORDERED: BUPIVACAINE HCL 0.5 % INJ/PF 30 ML SDV ONE (09:12)
[2018-09-24] MEDS ORDERED: BUPIVACAINE HCL 0.25% /EPINEPHRINE INJ/PF 30 ML SDV ONE (09:18)
[2018-09-24] MEDS ORDERED: SUCCINYLCHOLINE CHLORIDE INJ 200 MG/10 ML VIAL ONE (11:31)
[2018-09-24] MEDS ORDERED: FENTANYL CITRATE INJ/PF 100 MCG/2 ML AMPUL IV PRN ×3 (12:45)
[2018-09-24] MEDS ORDERED: ONDANSETRON HCL INJ/PF 4 MG/2 ML SDV IV PRN (12:45)
[2018-09-24] MEDS ORDERED: DIPHENHYDRAMINE HCL 50 MG/ML VIAL IV PRN (12:45)
[2018-09-24] MEDS ORDERED: MORPHINE SULFATE 10 MG/ML INJ IV PRN (12:45)
[2018-09-24] MEDS ORDERED: MEPERIDINE HCL/PF INJ 25 MG/1 ML DISP.SYRIN IV PRN (12:45)
[2018-09-24] MEDS ORDERED: PROMETHAZINE HCL INJ 25 MG/1 ML VIAL IV PRN ×2 (12:45)
--- NOTE | 2018-09-24 12:59 | Discharge Summary ---
Discharge Summary (SDC) - Discharge Final Diagnosis: Left humerus fracture Date of Surgery: 09/24/18 Discharge Date: 09/24/18 Condition: Good Treatment or Instructions: Activity as tolerated Prescriptions: Hydrocodone/Acetaminophen [[place] 5-325 mg Tablet] 1 tab PO Q4H PRN #40 tab PRN Reason: Referrals: INDU BORJA PA-C [Primary Care Provider] - Discharge Diet: As Tolerated, Regular Respiratory Treatments at Home: Deep Breathing/Coughing Discharge Activity: Balance Activity w/Rest, No Driving, No tub bath Home Care Assistance: None Needed Report the Following to Your Physician Immediately: Shortness of Breath, Fever over 101 Degrees, Drainage-Foul Smelling
--- NOTE | 2018-09-24 13:01 | Operative Report ---
Operative Report DATE OF SURGERY: 09/24/18 PREOPERATIVE DIAGNOSIS: Left humerus fracture OPERATION: Open reduction internal fixation left humerus fracture with intramedullary nail SURGEON: OSIRIS SHANKAR ANESTHESIA: GA ESTIMATED BLOOD LOSS: 25 PROCEDURE: With the patient in a beachchair position on the operating room table the left upper extremity and forequarter prepped and draped in sterile fashion. A pin is placed percutaneously through the greater tuberosity and down through the proximal femoral metadiaphysis. A combined reamer was then used to increase the cortical opening. These were removed and a guide timoteo was placed down the humerus across the fracture down to the olecranon fossa. Nail length is measured to be 240 mm. Subsequently a Js titanium humeral nail 7 mm x 240 mm advanced over the guide timoteo across the fracture site. It secured with 2 screws proximally one screw distally. The wounds are irrigated and closed using juanita. A sterile dressing is applied followed by the shoulder immobilizer the patient came with. She is returned to the PACU in satisfactory condition.
[2018-09-24] MEDS ORDERED: FENTANYL CITRATE INJ/PF 100 MCG/2 ML AMPUL ONE (13:19)
[2018-09-24] MEDS ORDERED: HYDROMORPHONE HCL INJ/PF 2 MG/ML AMPULE ONE (13:19)
[2018-09-24] MEDS ORDERED: HYDROCODONE/ACETAMINOPHEN 5-325 MG TABLET ONE (14:21)
[2018-09-24] MEDS ORDERED: HYDROMORPHONE HCL 2 MG TABLET PO ONE (14:45)
[2018-09-24] MEDS ORDERED: HYDROCODONE/ACETAMINOPHEN 5-325 MG TABLET PO ONE (14:45)
--- NOTE | 2018-09-24 14:51 | RADIOLOGY REPORT (SQ) ---
EXAM DESCRIPTION: NO CHG FLUORO; HUMERUS LEFT COMPLETED DATE/TIME: 09/24/2018 2:30 pm REASON FOR STUDY: ORIF LEFT HUMERUS ASST WITH FLUORO IN OR COMPARISON: None. FLUOROSCOPY TIME: 1.3 minutes 7 Images saved to PACS LIMITATIONS: None. PROCEDURE: ORIF left humerus FINDINGS: Images from fluoro document placement of a long medullary timoteo in the humerus secured by 2 long screws superiorly and 1 screw inferiorly. IMPRESSION: ORIF left humerus. Refer to operative note for further information. COMMENT: PQRS 6045F: Fluoroscopy time of the procedure is documented in the report. TECHNICAL DOCUMENTATION: JOB ID: [id number] [employer]- All Rights Reserved Reading location - IP/workstation name: [email or web address]
--- NOTE | 2018-09-24 14:51 | RADIOLOGY REPORT (SQ) ---
EXAM DESCRIPTION: NO CHG FLUORO; HUMERUS LEFT COMPLETED DATE/TIME: 09/24/2018 2:30 pm REASON FOR STUDY: ORIF LEFT HUMERUS ASST WITH FLUORO IN OR COMPARISON: None. FLUOROSCOPY TIME: 1.3 minutes 7 Images saved to PACS LIMITATIONS: None. PROCEDURE: ORIF left humerus FINDINGS: Images from fluoro document placement of a long medullary timoteo in the humerus secured by 2 long screws superiorly and 1 screw inferiorly. IMPRESSION: ORIF left humerus. Refer to operative note for further information. COMMENT: PQRS 6045F: Fluoroscopy time of the procedure is documented in the report. TECHNICAL DOCUMENTATION: JOB ID: [id number] [employer]- All Rights Reserved Reading location - IP/workstation name: [email or web address]
[2018-09-24 15:51] VITALS: BP 135/104
== END 2018-09-24 15:40 | disposition home or self-care (01) ==
LOC: OROUT 08:11
PROVIDERS: ATTEND Orthopaedic Surgery
DX: S42.302A Unspecified fracture of shaft of humerus, left arm, initial encounter for closed fracture (principal); W19.XXXA Unspecified fall, initial encounter; F17.210 Nicotine dependence, cigarettes, uncomplicated; M79.602 Pain in left arm; I12.9 Hypertensive chronic kidney disease with stage 1 through stage 4 chronic kidney disease, or unspecified chronic kidney disease; N18.3 Chronic kidney disease, stage 3 (moderate); R00.0 Tachycardia, unspecified; G62.9 Polyneuropathy, unspecified; Z79.51 Long term (current) use of inhaled steroids; Z86.73 Personal history of transient ischemic attack (TIA), and cerebral infarction without residual deficits; Z79.01 Long term (current) use of anticoagulants; Z79.899 Other long term (current) drug therapy
CPT/HCPCS: 36415; 85027; 85610; 85730; 80048; 73060; 01740; 24515; C1713; J2250; J3490; J1100; J3010; J1170; J0330; J2405; J2704; J0690

== ENCOUNTER 2018-10-21 10:19 | Emergency (ER) | payer OTHER ==
--- NOTE | 2018-10-21 10:37 | ER Document Report ---
HPI - HPI Time Seen by Provider: 10/21/18 10:34 Pain Level: 3 Notes: Patient is a 63-year-old female with a history of CKD, hypertension, ORIF to the left proximal humerus 3 weeks ago, ?MS who presents complaining of injury to the left ankle yesterday. Patient states that she twisted her ankle and has had swelling and pain to the lateral side since then. She did not hit her head. Patient states that her arm did not move in an awkward direction and would like an x-ray to make sure that her screw stayed in place. She has no other concerns or complaints. Denies any headache, fever, LOC, neck pain, URI, sore throat, chest pain, palpitations, syncope, cough, shortness of breath, wheeze, dyspnea, abdominal pain, nausea/vomiting/diarrhea, urinary retention, dysuria, hematuria, loss of control of bowel or bladder, numbness/tingling, saddle anesthesia, muscle paralysis/weakness, or rash. - ROS Systems Reviewed and Negative: Yes All other systems reviewed and negative - REPRODUCTIVE Reproductive: DENIES: : Past Medical History - Social History Smoking Status: Unknown if Ever Smoked Family History: CAD, Hypertension - Past Medical History Cardiac Medical History: Reports: Hx Hypercholesterolemia, Hx Hypertension Denies: Hx Coronary Artery Disease, Hx Heart Attack Pulmonary Medical History: Reports: Hx Asthma, Hx Pneumonia Denies: Hx Bronchitis, Hx COPD Neurological Medical History: Denies: Hx Cerebrovascular Accident, Hx Seizures Endocrine Medical History: Denies: Hx Diabetes Mellitus Type 1, Hx Diabetes Mellitus Type 2 Renal/ Medical History: Reports: Hx End Stage Renal Disease. Denies: Hx Peritoneal Dialysis GI Medical History: Denies: Hx Hepatitis, Hx Hiatal Hernia, Hx Ulcer Musculoskeletal Medical History: Reports Hx Arthritis - knee's, back, hips Psychiatric Medical History: Reports: Hx Depression Infectious Medical History: Denies: Hx Hepatitis Past Surgical History: Reports: Hx Appendectomy, Hx Section - x3, Hx Hysterectomy, Hx Orthopedic Surgery - roxie knee/roxie feet/right hand, Hx Tonsillectomy. Denies: Hx Mastectomy, Hx Open Heart Surgery, Hx Pacemaker - Immunizations Hx Diphtheria, Pertussis, Tetanus Vaccination: Yes Vertical Provider Document - CONSTITUTIONAL Agree With Documented VS: No - HR 116 during exam Notes: PHYSICAL EXAMINATION: GENERAL: Well-appearing, well-nourished and in no acute distress. LUNGS: Breath sounds clear to auscultation bilaterally and equal. No wheezes rales or rhonchi. HEART: Regular rate and rhythm without murmurs, rubs, gallops. Musculoskeletal: Lt foot/ankle: + mild lateral malleolus swelling. No ecchymosis or deformity. LROM to passive/active dorsiflexion. Strength 5+/5. N/V intact distal. + tenderness to the lateral malleolus. No bony tenderness of the foot. Achilles intact. Lis Franc maneuver neg. Anterior drawer neg. Lt arm: No obvious swelling, ecchymosis, erythema, warmth. + mild tenderness prox humerus. N/V intact distal. Extremities: No cyanosis, clubbing, or edema b/l. Peripheral pulses 2+. Capillary refill less than 3 seconds. NEUROLOGICAL: Normal speech, limping gait. Normal sensory, motor exams PSYCH: Normal mood, normal affect. SKIN: Warm, Dry, normal turgor, no rashes or lesions noted. - INFECTION CONTROL TRAVEL OUTSIDE OF THE [place] IN LAST 30 DAYS: No Course - Re-evaluation Re-evalutation: 10/21/18 11:11 Patient is an afebrile, well-hydrated, 63-year-old female who presents to the ED with left ankle pain which I suspect to be a sprain versus strain. Vitals are acceptable without any significant tachypnea or hypoxia. Her pulse "always runs 120's" which is normal for her. No CP, JIMENEZ, SOB. PE is otherwise unremarkable for any neurovascular compromise, obvious tendon/ligament rupture, obvious fracture/dislocation, septic joint. X-rays unremarkable for any acute pathology. Ankle stirrup provided today. Patient is nontoxic-appearing. Patient is able to ambulate and weight-bear although she is limping. No other labs or imaging warranted at this time based on H&P. Conservative measures otherwise for symptoms. Recheck with your PCM in 3-5 days. Consider consult orthopedics. Return to the ED with any worsening/concerning symptoms otherwise as reviewed in discharge. Patient is in agreement. - Vital Signs Vital signs: Temp Pulse Resp BP Pulse Ox 98.4 F 127 H 18 123/100 H 97 10/21/18 10:22 10/21/18 10:22 10/21/18 10:10/21/18 10:22 10/21/18 10:22 Discharge - Discharge Clinical Impression: Left ankle pain Qualifiers: Chronicity: acute Qualified Code(s): M25.572 - Pain in left ankle and joints of left foot Condition: Stable Disposition: HOME, SELF-CARE Additional Instructions: Rest, Ice, Compression, Elevation Use splint as directed Tylenol/ibuprofen as needed Light stretches daily Strength exercises as able Moist heat and massage may help F/u with your PCP in 3-5 days for a recheck Consider consult(s) with Orthopedics/physical therapy for ongoing/worsening symptoms Return to the ED with any worsening symptoms and/or development of fever, headache, chest pain, palpitations, syncope, shortness of breath, trouble breathing, abdominal pain, n/v/d, muscle weakness/paralysis, numbness/tingling, swelling, redness, or other worsening symptoms that are concerning to you. Forms: Elevated Blood Pressure Referrals: INDU BORJA PA-C [Primary Care Provider] - Follow up as needed [facility] [Provider Group] - Follow up as needed
--- NOTE | 2018-10-21 11:08 | RADIOLOGY REPORT (SQ) ---
EXAM DESCRIPTION: ANKLE LEFT COMPLETE COMPLETED DATE/TIME: 10/21/2018 10:52 am REASON FOR STUDY: left ankle pain s/p injury COMPARISON: None. NUMBER OF VIEWS: Three views. TECHNIQUE: AP, lateral, and oblique radiographic images acquired of the left ankle. LIMITATIONS: None. FINDINGS: MINERALIZATION: Normal. BONES: No acute fracture or dislocation. No worrisome bone lesions. JOINTS: No effusions. SOFT TISSUES: Lateral swelling. OTHER: No other significant finding. IMPRESSION: Soft tissue injury. TECHNICAL DOCUMENTATION: JOB ID: [id number] [employer]- All Rights Reserved Reading location - IP/workstation name: [email or web address]
--- NOTE | 2018-10-21 11:09 | RADIOLOGY REPORT (SQ) ---
EXAM DESCRIPTION: HUMERUS LEFT COMPLETED DATE/TIME: 10/21/2018 10:52 am REASON FOR STUDY: ORIF 3 weeks ago, recheck s/p injury-fall COMPARISON: 08/29/2018 NUMBER OF VIEWS: Two views. TECHNIQUE: Two radiographic images were acquired of the left humerus to include elbow and shoulder i n at least one projection. LIMITATIONS: None. FINDINGS: Interval ORIF proximal humeral fracture status post timoteo and interlocking screw fixation. Callus formation. IMPRESSION: Healing fracture proximal humerus. TECHNICAL DOCUMENTATION: JOB ID: [id number] [employer]- All Rights Reserved Reading location - IP/workstation name: [email or web address]
[2018-10-21 12:09] VITALS: BP 127/96
== END 2018-10-21 11:40 | disposition home or self-care (01) ==
LOC: ER 10:19
DX: M25.572 Pain in left ankle and joints of left foot (principal); X50.1XXA Overexertion from prolonged static or awkward postures, initial encounter; I12.9 Hypertensive chronic kidney disease with stage 1 through stage 4 chronic kidney disease, or unspecified chronic kidney disease; N18.9 Chronic kidney disease, unspecified; J45.909 Unspecified asthma, uncomplicated
CPT/HCPCS: 99283; 73610; 73060; L4350

== ENCOUNTER 2019-01-24 15:21 | Emergency (ER) | payer OTHER ==
--- NOTE | 2019-01-24 16:16 | RADIOLOGY REPORT (SQ) ---
EXAM DESCRIPTION: CT HEAD WITHOUT COMPLETED DATE/TIME: 01/24/2019 4:01 pm REASON FOR STUDY: fall; headache and on blood thinners COMPARISON: 07/04/2018. TECHNIQUE: Axial images acquired through the brain without intravenous contrast. Images reviewed wi th bone, brain and subdural windows. Additional sagittal and coronal reconstructions were generated. Images stored on PACS. All CT scanners at this facility use dose modulation, iterative reconstruction, and/or weight based d osing when appropriate to reduce radiation dose to as low as reasonably achievable (ALARA). [facility]: Dose Right [facility]: CareDose [facility]: Dose Right [facility]: Teradose 4D [facility]: ISBX RADIATION DOSE: CT Rad equipment meets quality standard of care and radiation dose reduction techniq ues were employed. CTDIvol: 53.2 mGy. DLP: 1044 mGy-cm.mGy. LIMITATIONS: None. FINDINGS: VENTRICLES: Prominent. CEREBRUM: No masses. No hemorrhage. No midline shift. Areas of low density in the white matter mos t likely due to chronic micro-vascular ischemic change. No evidence for acute infarction. CEREBELLUM: No masses. No hemorrhage. No alteration of density. No evidence for acute infarction. EXTRAAXIAL SPACES: Age-related involutional change. No fluid collections. No masses. ORBITS AND GLOBE: No intra- or extraconal masses. Normal contour of globe without masses. CALVARIUM: No fracture. PARANASAL SINUSES: No fluid or mucosal thickening. SOFT TISSUES: No mass or hematoma. OTHER: No other significant finding. IMPRESSION: CHRONIC CHANGES OF ATROPHY AND MICROVASCULAR ISCHEMIA. NO ACUTE PROCESS. EVIDENCE OF ACUTE STROKE: NO. TECHNICAL DOCUMENTATION: JOB ID: [id number] Quality ID # [id number]: Final reports with documentation of one or more dose reduction techniques (e.g., Au tomated exposure control, adjustment of the mA and/or kV according to patient size, use of iterative reconstruction technique) 2010 [employer]- All Rights Reserved Reading location - IP/workstation name: [email or web address]
--- NOTE | 2019-01-24 16:17 | RADIOLOGY REPORT (SQ) ---
EXAM DESCRIPTION: CT CERVICAL SPINE WITHOUT COMPLETED DATE/TIME: 01/24/2019 4:01 pm REASON FOR STUDY: fall; headache and on blood thinners COMPARISON: None. TECHNIQUE: Axial images acquired through the cervical spine without intravenous contrast. Images re viewed with lung, soft tissue and bone windows. Reconstructed coronal and sagittal MPR images review ed. Images stored on PACS. All CT scanners at this facility use dose modulation, iterative reconstruction, and/or weight based d osing when appropriate to reduce radiation dose to as low as reasonably achievable (ALARA). [facility]: Dose Right [facility]: CareDose [facility]: Dose Right [facility]: Teradose 4D [facility]: [employer] RADIATION DOSE: CT Rad equipment meets quality standard of care and radiation dose reduction techniq ues were employed. CTDIvol: 18.5 mGy. DLP: 394 mGy-cm. mGy. LIMITATIONS: None. FINDINGS: ALIGNMENT: Anatomic. MINERALIZATION: Normal. VERTEBRAL BODIES: No fractures or dislocation. DISCS: Multilevel disc space narrowing with osteophytes. FACETS, LATERAL MASSES, POSTERIOR ELEMENTS: Facet arthropathy. No fractures. No dislocation. No ac ritchie findings. HARDWARE: None in the spine. VISUALIZED RIBS: No fractures. LUNG APICES AND SOFT TISSUES: No significant or acute findings. OTHER: No other significant finding. IMPRESSION: CHRONIC DEGENERATIVE CHANGES. NO ACUTE FINDINGS. TECHNICAL DOCUMENTATION: JOB ID: [id number] Quality ID # [id number]: Final reports with documentation of one or more dose reduction techniques (e.g., Au tomated exposure control, adjustment of the mA and/or kV according to patient size, use of iterative reconstruction technique) 2010 [employer]- All Rights Reserved Reading location - IP/workstation name: [email or web address]
--- NOTE | 2019-01-24 16:38 | ER Document Report ---
ED Medical Screen (RME) - General Chief Complaint: Fall Stated Complaint: FALL/HEAD PAIN Time Seen by Provider: 01/24/19 16:35 Primary Care Provider: INDU BORJA PA-C [Primary Care Provider] - Follow up as needed Mode of Arrival: Medic Information source: Patient Notes: 63-year-old female presented to ED for complaint of fall landing on a cement floor last night. She states her home health nurse came out today and refused to leave until she came to the emergency room. They called the EMS and brought her to the emergency room. She denies any loss of consciousness. She states her was able to get her off of the floor and put her in the chair last night and then her home health insisted that she come to the doctor to . She states she does have a headache she states she does not have pain in her neck but she does have pain in her head and her right elbow right elbow is very bruised and right wrist is very bruised. We will get x-rays of the right elbow and wrist. I have greeted and performed a rapid initial assessment of this patient. A comprehensive ED assessment and evaluation of the patient, analysis of test results and completion of medical decision making process will be conducted by an additional ED providers. TRAVEL OUTSIDE OF THE [place] IN LAST 30 DAYS: No - Related Data Allergies/Adverse Reactions: aspirin [Aspirin] Allergy (Verified 10/21/18 10:20) Past Medical History - Past Medical History Cardiac Medical History: Reports: Hx Hypercholesterolemia, Hx Hypertension Denies: Hx Coronary Artery Disease, Hx Heart Attack Pulmonary Medical History: Reports: Hx Asthma, Hx Pneumonia Denies: Hx Bronchitis, Hx COPD Neurological Medical History: Denies: Hx Cerebrovascular Accident, Hx Seizures Endocrine Medical History: Denies: Hx Diabetes Mellitus Type 1, Hx Diabetes Mellitus Type 2 Renal/ Medical History: Reports: Hx End Stage Renal Disease. Denies: Hx Peritoneal Dialysis GI Medical History: Denies: Hx Hepatitis, Hx Hiatal Hernia, Hx Ulcer Musculoskeltal Medical History: Reports Hx Arthritis - knee's, back, hips Psychiatric Medical History: Reports: Hx Depression Infectious Medical History: Denies: Hx Hepatitis Past Surgical History: Reports: Hx Appendectomy, Hx Section - x3, Hx Hysterectomy, Hx Orthopedic Surgery - roxie knee/roxie feet/right hand, Hx Tonsillectomy. Denies: Hx Mastectomy, Hx Open Heart Surgery, Hx Pacemaker - Immunizations Hx Diphtheria, Pertussis, Tetanus Vaccination: Yes Physical Exam - Vital signs Vitals: Temp Pulse Resp BP Pulse Ox 98.6 F 105 H 16 136/98 H 98 01/24/19 15:27 01/24/19 15:27 01/24/19 15:27 01/24/19 15:27 01/24/19 15:27 Course - Vital Signs Vital signs: Temp Pulse Resp BP Pulse Ox 98.6 F 105 H 16 136/98 H 98 01/24/19 15:27 01/24/19 15:27 01/24/19 15:27 01/24/19 15:27 01/24/19 15:27 Doctor's Discharge - Discharge Referrals: INDU BORJA PA-C [Primary Care Provider] - Follow up as needed
--- NOTE | 2019-01-24 17:18 | RADIOLOGY REPORT (SQ) ---
EXAM DESCRIPTION: ELBOW RIGHT OVER 2 VIEWS COMPLETED DATE/TIME: 01/24/2019 4:59 pm REASON FOR STUDY: pain and fall COMPARISON: None. NUMBER OF VIEWS: Four views. TECHNIQUE: AP, lateral, and both oblique radiographic images acquired of the right elbow. LIMITATIONS: None. FINDINGS: MINERALIZATION: Normal. BONES: No acute fracture or dislocation. No worrisome bone lesions. JOINT: No effusion. Radio and ulnohumeral joint degenerative changes. SOFT TISSUES: No soft tissue swelling. No foreign body. OTHER: No other significant finding. IMPRESSION: No acute bone abnormality of the right elbow. TECHNICAL DOCUMENTATION: JOB ID: [id number] [employer]- All Rights Reserved Reading location - IP/workstation name: [email or web address]
--- NOTE | 2019-01-24 17:20 | RADIOLOGY REPORT (SQ) ---
EXAM DESCRIPTION: WRIST RIGHT 3 VIEWS COMPLETED DATE/TIME: 01/24/2019 4:59 pm REASON FOR STUDY: pain and fall COMPARISON: Right wrist radiographs 09/01/2016 NUMBER OF VIEWS: Three views. TECHNIQUE: AP, lateral, and oblique radiographic images acquired of the right wrist. LIMITATIONS: None. FINDINGS: MINERALIZATION: Normal. BONES: No acute fracture or dislocation. No worrisome bone lesions. Normal alignment. SOFT TISSUES: Possible soft tissue injury adjacent to the distal ulna. OTHER: No other significant finding. IMPRESSION: Possible soft tissue injury adjacent to the distal ulna without acute underlying bone ab normality. TECHNICAL DOCUMENTATION: JOB ID: [id number] [employer]- All Rights Reserved Reading location - IP/workstation name: [email or web address]
--- NOTE | 2019-01-24 20:38 | ER Document Report ---
ED Fall - General Chief Complaint: Fall Stated Complaint: FALL/HEAD PAIN Time Seen by Provider: 01/24/19 16:35 Primary Care Provider: INDU BORJA PA-C [Primary Care Provider] - Follow up tomorrow Mode of Arrival: Medic Information source: Patient Notes: Patient is a 63 year old female who presents to the emergency department after a fall. The fall happened last night. She has been able to walk. Patient states that she was stumbling and fell. She denies any chest pain, loss of consciousness, or any other symptoms. She has been able to walk. EMS came and she refused transport last night. Patient is currently on Plavix for history of TIAs in 1997. Patient states that her head hurts the most. She also has complaints of neck pain. TRAVEL OUTSIDE OF THE [place] IN LAST 30 DAYS: No - Related data Allergies/Adverse Reactions: aspirin [Aspirin] Allergy (Verified 10/21/18 10:20) Past Medical History - General Information source: Patient - Social History Smoking Status: Never Smoker Family History: CAD, Hypertension Patient has suicidal ideation: No Patient has homicidal ideation: No - Past Medical History Cardiac Medical History: Reports: Hx Hypercholesterolemia, Hx Hypertension Denies: Hx Coronary Artery Disease, Hx Heart Attack Pulmonary Medical History: Reports: Hx Asthma, Hx Pneumonia Denies: Hx Bronchitis, Hx COPD Neurological Medical History: Denies: Hx Cerebrovascular Accident, Hx Seizures Endocrine Medical History: Denies: Hx Diabetes Mellitus Type 1, Hx Diabetes Mellitus Type 2 Renal/ Medical History: Reports: Hx End Stage Renal Disease. Denies: Hx Peritoneal Dialysis GI Medical History: Denies: Hx Hepatitis, Hx Hiatal Hernia, Hx Ulcer Musculoskeletal Medical History: Reports Hx Arthritis - knee's, back, hips Psychiatric Medical History: Reports: Hx Depression Infectious Medical History: Denies: Hx Hepatitis Past Surgical History: Reports: Hx Appendectomy, Hx Section - x3, Hx Hysterectomy, Hx Orthopedic Surgery - roxie knee/roxie feet/right hand, Hx Tonsillectomy. Denies: Hx Mastectomy, Hx Open Heart Surgery, Hx Pacemaker - Immunizations Hx Diphtheria, Pertussis, Tetanus Vaccination: Yes Review of Systems - Review of Systems Notes: REVIEW OF SYSTEMS: CONSTITUTIONAL : Denies recent illness. Denies recent unintentional weight loss. Denies fever, chills, or sweats. EENT: Denies eye, ear, throat, or mouth pain, discharge, or symptoms. Denies nasal or sinus congestion. CARDIOVASCULAR: Denies chest pain. RESPIRATORY: Denies shortness of breath, cough, congestion, difficulty luke thing, or wheezing. GASTROINTESTINAL: Denies nausea, vomiting, and diarrhea. Denies abdominal pain. Denies constipation. GENITOURINARY: Denies difficulty urinating, burning, blood in urine, urgency or frequency. MUSCULOSKELETAL: See HPI. SKIN: Denies rash, itchiness, or lesions HEMATOLOGIC : Denies easy bruising or bleeding. LYMPHATIC: Denies swollen, painful, enlarged glands. NEUROLOGICAL: Denies no numbness or tingling denies weakness. Denies headache. Denies altered mental status. Denies alteration in speech. PSYCHIATRIC: Denies stress, anxiety, alteration in sleep patterns, or depression. All other systems reviewed and negative. Physical Exam - Vital signs Vitals: Temp Pulse Resp BP Pulse Ox 98.6 F 105 H 16 136/98 H 98 01/24/19 15:27 01/24/19 15:27 01/24/19 15:27 01/24/19 15:27 01/24/19 15:27 - Notes Notes: PHYSICAL EXAMINATION: GENERAL: Appears well, healthy, well-nourished, no acute distress. HEAD: Normocephalic, atraumatic. Tenderness to occipital area of head ENT: Moist mucous membranes. NECK: Supple, no noticeable swelling, redness, rash. Normal range of motion. LUNGS: Equal breath sounds bilaterally and clear to auscultation. No wheezes rales or rhonchi. CARDIOVASCULAR: S1-S2, regular rate, regular rhythm. Radial pulses 2+, normal. ABDOMEN: Normoactive bowel sounds. Soft, nontender, no guarding, no rebound tenderness, and no masses palpated. EXTREMITIES: Normal strength and range of motion, no pitting or edema. No cyanosis. NEUROLOGICAL: Moves all extremities upon command. Strength 5/5 in all extremities. PSYCH: Normal mood, normal affect. SKIN: Warm, dry. No rash, lesions, ulcerations noted. Normal skin turgor. Course - Re-evaluation Re-evalutation: 01/24/19 20:35 CT of the head, neck were both negative. No intracranial bleeding noted. X-ray of the left elbow and left wrist are unremarkable. I have offered the patient a sling and she states that she has a sling at home. I have advised her to use it as needed. She will follow-up with her primary care provider tomorrow. She has an appointment. I have a very low suspicion for any life-threatening etiology at this time. Patient was able to walk for me with her walker. Follow-up precautions were given. Verbal discharge instructions were given to the patient. They verbalized understanding. They are stable for discharge. - Vital Signs Vital signs: Temp Pulse Resp BP Pulse Ox 98.6 F 105 H 16 136/98 H 98 01/24/19 15:27 01/24/19 15:27 01/24/19 15:27 01/24/19 15:27 01/24/19 15:27 Discharge - Discharge Clinical Impression: Left arm pain, Neck pain Fall Qualifiers: Encounter type: initial encounter Qualified Code(s): W19.XXXA - Unspecified fall, initial encounter Headache Qualifiers: Headache type: unspecified Headache chronicity pattern: acute headache Intractability: not intractable Qualified Code(s): R51 - Headache Condition: Stable Disposition: HOME, SELF-CARE Additional Instructions: You are seen today in the emergency department after a fall. Your CT and x-rays are normal. You can use your sling when you are not walking for comfort. Please follow-up with your primary care provider tomorrow. You can take Tylenol 1000 mg every 6 hours for your pain if needed. If you have any of the symptoms below, please return to the emergency department. (1) Mental confusion (2) Incoordination or staggering (3) Repeated or forceful vomiting (4) Clear or bloody drainage from ear, mouth, or nose (5) Severe headache, not relieved by acetaminophen or prescribed pain medication (6) Failure to improve in 24 hours Referrals: INDU BORJA PA-C [Primary Care Provider] - Follow up tomorrow
[2019-01-24] MEDS ORDERED: ACETAMINOPHEN 325 MG TABLET PO ONE (21:31)
[2019-01-24 21:36] VITALS: BP 170/131
== END 2019-01-24 21:37 | disposition home or self-care (01) ==
LOC: ER 15:21
DX: M54.2 Cervicalgia (principal); M79.602 Pain in left arm; R51 Headache; W19.XXXA Unspecified fall, initial encounter; E78.00 Pure hypercholesterolemia, unspecified; I12.0 Hypertensive chronic kidney disease with stage 5 chronic kidney disease or end stage renal disease; N18.6 End stage renal disease; Z79.01 Long term (current) use of anticoagulants; Z90.710 Acquired absence of both cervix and uterus
CPT/HCPCS: 70450; 72125

== ENCOUNTER 2019-02-02 14:35 | Emergency (ER) | payer OTHER ==
--- NOTE | 2019-02-02 14:52 | ER Document Report ---
ED Medical Screen (RME) - General Chief Complaint: Shoulder Pain Stated Complaint: RIGHT SHOULDER PAIN Time Seen by Provider: 02/02/19 14:48 Primary Care Provider: INDU BORJA PA-C [Primary Care Provider] - Follow up as needed Mode of Arrival: Wheelchair Information source: Patient Notes: Patient arrives via EMS after a fall down 4 steps. Patient states that she lost her balance fell injuring her right shoulder. Patient denies tripping. Patient denies any loss of consciousness. EMS report had that patient had been drinking, patient states she made a drink although has not had any alcohol today. hx: Chronic kidney disease, hypertension, COPD, peripheral neuropathy I have greeted and performed a rapid initial assessment of this patient. A comprehensive ED assessment and evaluation of the patient, analysis of test results and completion of the medical decision making process will be conducted by additional ED providers. TRAVEL OUTSIDE OF THE [place] IN LAST 30 DAYS: No - Related Data Allergies/Adverse Reactions: aspirin [Aspirin] Allergy (Verified 02/02/19 14:42) Past Medical History - Past Medical History Cardiac Medical History: Reports: Hx Hypercholesterolemia, Hx Hypertension Denies: Hx Coronary Artery Disease, Hx Heart Attack Pulmonary Medical History: Reports: Hx Asthma, Hx Pneumonia Denies: Hx Bronchitis, Hx COPD Neurological Medical History: Denies: Hx Cerebrovascular Accident, Hx Seizures Endocrine Medical History: Denies: Hx Diabetes Mellitus Type 1, Hx Diabetes Mellitus Type 2 Renal/ Medical History: Reports: Hx End Stage Renal Disease. Denies: Hx Peritoneal Dialysis GI Medical History: Denies: Hx Hepatitis, Hx Hiatal Hernia, Hx Ulcer Musculoskeltal Medical History: Reports Hx Arthritis - knee's, back, hips Psychiatric Medical History: Reports: Hx Depression Infectious Medical History: Denies: Hx Hepatitis Past Surgical History: Reports: Hx Appendectomy, Hx Section - x3, Hx Hysterectomy, Hx Orthopedic Surgery - roxie knee/roxie feet/right hand, Hx Tonsillectomy. Denies: Hx Mastectomy, Hx Open Heart Surgery, Hx Pacemaker - Immunizations Hx Diphtheria, Pertussis, Tetanus Vaccination: Yes Physical Exam - General General appearance: Alert Notes: Tenderness to proximal right humerus, 2+ radial pulse Doctor's Discharge - Discharge Referrals: INDU BORJA PA-C [Primary Care Provider] - Follow up as needed
[2019-02-02] MEDS ORDERED: ACETAMINOPHEN 325 MG TABLET PO ONE (15:37)
[2019-02-02] MEDS ORDERED: DIPH/PERTUSS(ACELL)/TETANUS VAC/PF 0.5 ML SYR (>=10YO) IM ONE (15:39)
--- NOTE | 2019-02-02 15:43 | RADIOLOGY REPORT (SQ) ---
EXAM DESCRIPTION: HUMERUS RIGHT COMPLETED DATE/TIME: 02/02/2019 3:30 pm REASON FOR STUDY: fall, R arm injury COMPARISON: None. NUMBER OF VIEWS: Two views. TECHNIQUE: Two radiographic images were acquired of the right humerus to include elbow and shoulder in at least one projection. LIMITATIONS: None. FINDINGS: MINERALIZATION: Normal. BONES: There appears to be a fracture of the proximal right humerus, not well evaluated on these radi ographs. No fracture or dislocation of the distal humerus. SOFT TISSUES: No obvious swelling or foreign body. OTHER: No other significant finding. IMPRESSION: There appears to be a fracture of the proximal right humerus, not well evaluated on thes e radiographs. Recommend dedicated shoulder radiographs. No fracture or dislocation of the distal hu merus. TECHNICAL DOCUMENTATION: JOB ID: [id number] [employer]- All Rights Reserved Reading location - IP/workstation name: [email or web address]
--- NOTE | 2019-02-02 15:52 | ER Document Report ---
ED General - General Chief Complaint: Fall Injury Stated Complaint: RIGHT SHOULDER PAIN Time Seen by Provider: 02/02/19 14:48 Primary Care Provider: INDU BORJA PA-C [Primary Care Provider] - Follow up as needed Mode of Arrival: Wheelchair TRAVEL OUTSIDE OF THE [place] IN LAST 30 DAYS: No - HPI Notes: Patient is a 63-year-old female w. 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 Pt states that she went to reach for the railing on the steps when she missed it and fell forward when she lost her balance. Patient states that she braced her fall with her arm primarily, but did hit the left side of her head. Patient states that she has not had any severe pain from the head otherwise. Patient states that movement in her arm makes the pain worse and believes that something may broken in the arm. She did not lose consciousness. She is otherwise able to ambulate without difficulty. She is urinating normally. Patient is on Plavix. Denies any headache, fever, changes in vision/speech/mentation/hearing, URI, sore throat, chest pain, palpitations, syncope, cough, shortness of breath, wheeze, dyspnea, abdominal pain, nausea/vomiting/diarrhea, urinary retention, dysuria, hematuria, loss of control of bowel or bladder, numbness/tingling, saddle anesthesia, muscle paralysis, or rash. Pt was reported to be drinking alcohol prior. Friends accompanying pt at this time. - Related Data Allergies/Adverse Reactions: aspirin [Aspirin] Allergy (Verified 02/02/19 14:42) Home Medications: albuterol. breoeliptic. cycobalamin. cyclobenzaprine. diazepam. flonase. folic acid Past Medical History - General Information source: Patient - Social History Smoking Status: Current Every Day Smoker Chew tobacco use (# tins/day): No Frequency of alcohol use: Heavy Drug Abuse: None Family History: CAD, Hypertension Patient has suicidal ideation: No Patient has homicidal ideation: No - Past Medical History Cardiac Medical History: Reports: Hx Hypercholesterolemia, Hx Hypertension Denies: Hx Coronary Artery Disease, Hx Heart Attack Pulmonary Medical History: Reports: Hx Asthma, Hx Pneumonia Denies: Hx Bronchitis, Hx COPD Neurological Medical History: Denies: Hx Cerebrovascular Accident, Hx Seizures Endocrine Medical History: Denies: Hx Diabetes Mellitus Type 1, Hx Diabetes Mellitus Type 2 Renal/ Medical History: Reports: Hx End Stage Renal Disease. Denies: Hx Peritoneal Dialysis GI Medical History: Denies: Hx Hepatitis, Hx Hiatal Hernia, Hx Ulcer Musculoskeletal Medical History: Reports Hx Arthritis - knee's, back, hips Psychiatric Medical History: Reports: Hx Depression Infectious Medical History: Denies: Hx Hepatitis Past Surgical History: Reports: Hx Appendectomy, Hx Section - x3, Hx Hysterectomy, Hx Orthopedic Surgery - roxie knee/roxie feet/right hand, Hx Tonsillectomy. Denies: Hx Mastectomy, Hx Open Heart Surgery, Hx Pacemaker - Immunizations Hx Diphtheria, Pertussis, Tetanus Vaccination: Yes Review of Systems - Review of Systems -: Yes All other systems reviewed and negative Physical Exam - Vital signs Vitals: Temp Pulse Resp BP Pulse Ox 98.2 F 113 H 16 135/105 H 97 02/02/19 14:47 02/02/19 14:47 02/02/19 14:47 02/02/19 14:47 02/02/19 14:47 - Notes Notes: PHYSICAL EXAMINATION: GENERAL: Well-appearing, well-nourished and in no acute distress. A&Ox4. Answers questions appropriately. HEAD: Atraumatic, normocephalic. No mcguire sign. + mild posterolateral te nderness w/o hematoma or bogginess. EYES: Pupils equal round and reactive to light, extraocular movements intact, sclera anicteric, conjunctiva are normal. No raccoon eyes/entrapment ENT: EAC clear b/l. TM's intact b/l without erythema, fluid, or perforation. Nares patent and without discharge. oropharynx clear without exudates. No tonsilar hypertrophy or erythema. Moist mucous membranes. No hemotympanum/CSF discharge. NECK: Normal range of motion, supple without lymphadenopathy. No rigidity. + mild tenderness near C7. Chest: No flail chest. equal rise/fall. Non-tender LUNGS: Breath sounds clear to auscultation bilaterally and equal. No wheezes rales or rhonchi. HEART: Regular rate and rhythm without murmurs, rubs, gallops. ABDOMEN: Soft, nontender, nondistended abdomen. No guarding, no rebound. Normal bowel sounds present. No CVA tenderness bilaterally. No ecchymosis. Musculoskeletal: RUE: LROM due to pain. + tenderness to prox humurus and mid forearm to palp. N/V intact distal. Ext b/l: FROM to passive/active. Strength 5+/5. No deficits noted. No other bony tenderness of extremities. Pelvis stable. Back: FROM to passive/active. Strength 5+/5. No vertebral point tenderness, stepoffs, or deformities. No other bony tenderness or ecchymosis. Extremities: No cyanosis, clubbing, or edema b/l. Peripheral pulses 2+. Capillary refill less than 2 seconds. NEUROLOGICAL: GCS 15. Cranial nerves grossly intact. Normal speech, normal gait. Normal sensory, motor exams. PSYCH: Normal mood, normal affect. SKIN: + 0.5cm linear superficial laceration noted Rt proximal posterior forearm. Course - Re-evaluation Re-evalutation: 02/02/19 16:50 Patient is an afebrile, well-hydrated, 63-year-old female who presents to the ED with a fracture to the Rt proximal humerus with prox forearm laceration requiring 1 suture. Vitals are acceptable without any significant tachycardia, tachypnea, or hypoxia. PE is otherwise unremarkable for any neurovascular compromise, obvious tendon/ligament rupture, open fracture, septic joint. See XR result. Pt placed in sling. Pt was given tylenol PO and low dose oxy-IR. Patient is nontoxic-appearing. No other labs or imaging warranted at this time based on H&P. Pt is A&Ox4, able to make decision for herself and keep conversation w/o any slurring or evidence of significant intoxication. Pt is accompanied by her friends who will be taking her home and will be with her for the next 24 hours. They feel comfortable monitoring her at home. Pt is able to ambulate without significant gait instability at this time. Conservative measures otherwise for symptoms. Recheck with your PCM in 3-5 days. Call orthopedics Monday to schedule an appointment for further evaluation and management. Return to the ED with any worsening/concerning symptoms otherwise as reviewed in discharge. Patient is in agreement. - Vital Signs Vital signs: Temp Pulse Resp BP Pulse Ox 98.2 F 113 H 16 135/105 H 97 02/02/19 14:47 02/02/19 14:47 02/02/19 14:47 02/02/19 14:47 02/02/19 14:47 Procedures - Laceration/Wound Repair Right forearm Wound length (cm): 0.5 Wound's Depth, Shape: Superficial, Linear Laceration pre-procedure: Betadine prep applied Wound explored: Clean, No foreign body removed Irrigated w/ Saline (mLs): 100 Wound Repaired With: Sutures Suture Size/Type: 4:0, Nylon Number of Sutures: 1 Layer Closure?: No Post-procedure wound care: Sterile dressing applied, Sling applied - d/t rt humerus fracture. Post-procedure NV exam normal: Yes Complications: No Discharge - Discharge Clinical Impression: Closed fracture of right proximal humerus Qualifiers: Encounter type: initial encounter Fracture morphology: unspecified fracture morphology Qualified Code(s): S42.201A - Unspecified fracture of upper end of right humerus, initial encounter for closed fracture Laceration of forearm, right Qualifiers: Encounter type: initial encounter Qualified Code(s): S51.811A - Laceration without foreign body of right forearm, initial encounter Condition: Stable Disposition: HOME, SELF-CARE Instructions: Antibiotic Ointment Protection ([facility]), Soap Cleansing ([facility]), Prophylactic Antibiotic ([facility]) Additional Instructions: Rest, Ice, Compression, Elevation Use sling as directed Stop drinking Tylenol/ibuprofen as needed Keep the skin clean and wash with soap and water after 24 hours. Triple antibiotic ointment with each dressing change after 24 hours for the first 2-3 days. Suture will need removed in 10 days F/u with your PCP in 3-5 days for a recheck Call orthopedics Monday to schedule an appointment for further evaluation and management Return to the ED with any worsening symptoms and/or development of fever, headache, chest pain, palpitations, syncope, shortness of breath, trouble b reathing, abdominal pain, n/v/d, muscle weakness/paralysis, numbness/tingling, swelling, redness, or other worsening symptoms that are concerning to you. Prescriptions: Cephalexin Monohydrate [Keflex 500 mg Capsule] 500 mg PO BID #14 capsule Forms: Elevated Blood Pressure Referrals: INDU BORJA PA-C [Primary Care Provider] - Follow up in 3-5 days ANTONETTE ZHENG JR, DO [ACTIVE PROVISIONAL STAFF] - Follow up in 3-5 days [facility] [Provider Group] - Follow up as needed
[2019-02-02] MEDS ORDERED: OXYCODONE HCL IR 5 MG TABLET PO ONE (15:59)
--- NOTE | 2019-02-02 16:21 | RADIOLOGY REPORT (SQ) ---
EXAM DESCRIPTION: CT HEAD WITHOUT COMPLETED DATE/TIME: 02/02/2019 4:12 pm REASON FOR STUDY: pain s/p fall with distracting injury COMPARISON: 01/24/2019 TECHNIQUE: Axial images acquired through the brain without intravenous contrast. Images reviewed wi th bone, brain and subdural windows. Additional sagittal and coronal reconstructions were generated. Images stored on PACS. All CT scanners at this facility use dose modulation, iterative reconstruction, and/or weight based d osing when appropriate to reduce radiation dose to as low as reasonably achievable (ALARA). [facility]: Dose Right [facility]: CareDose [facility]: Dose Right [facility]: Teradose 4D [facility]: [employer] RADIATION DOSE: mGy. LIMITATIONS: None. FINDINGS: VENTRICLES: Prominent. CEREBRUM: No masses. No hemorrhage. No midline shift. Areas of low density in the white matter mos t likely due to chronic micro-vascular ischemic change. No evidence for acute infarction. CEREBELLUM: No masses. No hemorrhage. No alteration of density. No evidence for acute infarction. EXTRAAXIAL SPACES: Age-related involutional change. No fluid collections. No masses. ORBITS AND GLOBE: No intra- or extraconal masses. Normal contour of globe without masses. CALVARIUM: No fracture. PARANASAL SINUSES: No fluid or mucosal thickening. SOFT TISSUES: No mass or hematoma. OTHER: No other significant finding. IMPRESSION: CHRONIC CHANGES OF ATROPHY AND MICROVASCULAR ISCHEMIA. NO ACUTE PROCESS. EVIDENCE OF ACUTE STROKE: NO. TECHNICAL DOCUMENTATION: JOB ID: [id number] Quality ID # [id number]: Final reports with documentation of one or more dose reduction techniques (e.g., Au tomated exposure control, adjustment of the mA and/or kV according to patient size, use of iterative reconstruction technique) 2010 [employer]- All Rights Reserved Reading location - IP/workstation name: [email or web address]
--- NOTE | 2019-02-02 16:21 | RADIOLOGY REPORT (SQ) ---
EXAM DESCRIPTION: FOREARM RIGHT COMPLETED DATE/TIME: 02/02/2019 4:14 pm REASON FOR STUDY: pain s/p fall COMPARISON: None. NUMBER OF VIEWS: Two views. TECHNIQUE: Two radiographic images acquired of the right forearm, including elbow and wrist in at le ast one projection. LIMITATIONS: None. FINDINGS: MINERALIZATION: Normal. BONES: No definitive fracture. Degenerative changes of the elbow joint. SOFT TISSUES: No obvious swelling or foreign body. OTHER: No other significant finding. IMPRESSION: NEGATIVE STUDY OF THE RIGHT FOREARM. NO RADIOGRAPHIC EVIDENCE OF ACUTE INJURY. TECHNICAL DOCUMENTATION: JOB ID: [id number] [employer]- All Rights Reserved Reading location - IP/workstation name: [email or web address]
--- NOTE | 2019-02-02 16:41 | RADIOLOGY REPORT (SQ) ---
EXAM DESCRIPTION: CT CERVICAL SPINE WITHOUT COMPLETED DATE/TIME: 02/02/2019 4:12 pm REASON FOR STUDY: pain s/p fall with distracting injury COMPARISON: 01/24/2019. TECHNIQUE: Axial images acquired through the cervical spine without intravenous contrast. Images re viewed with lung, soft tissue and bone windows. Reconstructed coronal and sagittal MPR images review ed. Images stored on PACS. All CT scanners at this facility use dose modulation, iterative reconstruction, and/or weight based d osing when appropriate to reduce radiation dose to as low as reasonably achievable (ALARA). [facility]: Dose Right [facility]: CareDose [facility]: Dose Right [facility]: Teradose 4D [facility]: [employer] RADIATION DOSE: 345.8mGy. LIMITATIONS: None. FINDINGS: ALIGNMENT: Anatomic. MINERALIZATION: Normal. VERTEBRAL BODIES/DISCS: There is again evidence of multilevel cervical spondylosis at C3 -7 with deg enerative disc disease at C4-7. C1-2: No significant abnormality. C2-3: Minimal degenerative anterolisthesis of C2 on C3. Prominent facet arthropathy on the right at C2-3 with foraminal stenosis on the right. C3-4: Cervical spondylosis Minimal facet arthropathy on the left. C4-5: Cervical spondylosis and degenerative disc disease. Facet arthropathy on the left. C5-6: Cervical spondylosis and degenerative disc disease. C6-7 :cervical spondylosis and degenerative disc disease. LUNG APICES AND SOFT TISSUES: Fibrotic sca rring in lung apices. IMPRESSION: Multilevel cervical spondylosis and degenerative disc disease. No cervical fracture. TECHNICAL DOCUMENTATION: JOB ID: [id number] Quality ID # [id number]: Final reports with documentation of one or more dose reduction techniques (e.g., Au tomated exposure control, adjustment of the mA and/or kV according to patient size, use of iterative reconstruction technique) 2010 [email or web address] All Rights Reserved Reading location - IP/workstation name: [email or web address]
[2019-02-02 17:17] VITALS: BP 172/114
--- NOTE | 2019-02-02 21:29 | EKG REPORT ---
SEVERITY:- BORDERLINE ECG - SINUS TACHYCARDIA BORDERLINE PROLONGED QT INTERVAL : Confirmed by: Prisca Wiley MD 02-Feb-2019 21:28:37
== END 2019-02-02 17:32 | disposition home or self-care (01) ==
LOC: ER 14:35
PROC: 0HQDXZZ Repair Right Lower Arm Skin, External Approach (ICD-10-PCS; principal; 2019-02-02)
DX: S42.201A Unspecified fracture of upper end of right humerus, initial encounter for closed fracture (principal); S51.811A Laceration without foreign body of right forearm, initial encounter; S09.90XA Unspecified injury of head, initial encounter; R51 Headache; M25.511 Pain in right shoulder; M79.601 Pain in right arm; M79.631 Pain in right forearm; W10.9XXA Fall (on) (from) unspecified stairs and steps, initial encounter; F17.200 Nicotine dependence, unspecified, uncomplicated; I12.0 Hypertensive chronic kidney disease with stage 5 chronic kidney disease or end stage renal disease; N18.6 End stage renal disease
CPT/HCPCS: 70450; 72125; 90471; 90715; 93005; 93010; 99284

== ENCOUNTER 2019-05-21 16:43 | Emergency (ER) | payer OTHER ==
--- NOTE | 2019-05-21 17:28 | EKG REPORT ---
SEVERITY:- ABNORMAL ECG - SINUS TACHYCARDIA PROBABLE INFERIOR INFARCT, OLD : Confirmed by: Robin Tobin MD 21-May-2019 17:27:22
--- NOTE | 2019-05-21 17:49 | ER Document Report ---
ED Medical Screen (RME) - General Stated Complaint: CHEST PAIN Time Seen by Provider: 05/21/19 17:46 Primary Care Provider: INDU BORJA PA-C [Primary Care Provider] - Follow up as needed Notes: 64-year-old female presents with chest pain to the right central chest that started last night. Patient states it is constant go straight to the back. Associated dyspnea. Patient states she also has some coughing but does not state that the chest pain does not feel like it is related to the coughing. Lungs clear except mild wheezing to right lower lobe. Regular rate and rhythm. I have greeted and performed a rapid initial assessment of this patient. A comprehensive ED assessment and evaluation of the patient, analysis of test results and completion of the medical decision making process with be conducted by additional ED providers. TRAVEL OUTSIDE OF THE [place] IN LAST 30 DAYS: No - Related Data Allergies/Adverse Reactions: aspirin [Aspirin] Allergy (Verified 05/21/19 17:43) Past Medical History - Past Medical History Cardiac Medical History: Reports: Hx Hypercholesterolemia, Hx Hypertension Denies: Hx Coronary Artery Disease, Hx Heart Attack Pulmonary Medical History: Reports: Hx Asthma, Hx Pneumonia Denies: Hx Bronchitis, Hx COPD Neurological Medical History: Denies: Hx Cerebrovascular Accident, Hx Seizures Endocrine Medical History: Denies: Hx Diabetes Mellitus Type 1, Hx Diabetes Mellitus Type 2 Renal/ Medical History: Reports: Hx End Stage Renal Disease. Denies: Hx Peritoneal Dialysis GI Medical History: Denies: Hx Hepatitis, Hx Hiatal Hernia, Hx Ulcer Musculoskeltal Medical History: Reports Hx Arthritis - knee's, back, hips Psychiatric Medical History: Reports: Hx Depression Infectious Medical History: Denies: Hx Hepatitis Past Surgical History: Reports: Hx Appendectomy, Hx Section - x3, Hx Hysterectomy, Hx Orthopedic Surgery - roxie knee/roxie feet/right hand, Hx Tonsillectomy. Denies: Hx Mastectomy, Hx Open Heart Surgery, Hx Pacemaker - Immunizations Hx Diphtheria, Pertussis, Tetanus Vaccination: Yes Physical Exam - Vital signs Vitals: Temp Pulse Resp BP Pulse Ox 97.6 F 110 H 20 116/96 H 97 05/21/19 17:07 05/21/19 17:07 05/21/19 17:07 05/21/19 17:07 05/21/19 17:07 Course - Vital Signs Vital signs: Temp Pulse Resp BP Pulse Ox 97.6 F 110 H 20 116/96 H 97 05/21/19 17:07 05/21/19 17:07 05/21/19 17:07 05/21/19 17:07 05/21/19 17:07 Doctor's Discharge - Discharge Referrals: INDU BORJA PA-C [Primary Care Provider] - Follow up as needed
--- NOTE | 2019-05-21 18:19 | RADIOLOGY REPORT (SQ) ---
EXAM DESCRIPTION: CHEST 2 VIEWS COMPLETED DATE/TIME: 05/21/2019 6:09 pm REASON FOR STUDY: right sided chest pain/back pain COMPARISON: 09/18/2018 EXAM PARAMETERS: NUMBER OF VIEWS: two views TECHNIQUE: Digital Frontal and Lateral radiographic views of the chest acquired. RADIATION DOSE: NA LIMITATIONS: none FINDINGS: LUNGS AND PLEURA: No opacities, masses or pneumothorax. No pleural effusion. MEDIASTINUM AND HILAR STRUCTURES: No masses or contour abnormalities. HEART AND VASCULAR STRUCTURES: Heart normal size. No evidence for failure. BONES: No acute findings. HARDWARE: None in the chest. OTHER: No other significant finding. IMPRESSION: NO ACUTE RADIOGRAPHIC FINDING IN THE CHEST. TECHNICAL DOCUMENTATION: JOB ID: [id number] 2010 [employer]- All Rights Reserved Reading location - IP/workstation name: [email or web address]
[2019-05-21 20:01] LABS: ABSOLUTE EOSINOPHILS # (AUTO) 0.1 10^3/uL (0.0-0.6); ABSOLUTE LYMPHOCYTES (AUTO) 2.7 10^3/uL (0.5-4.7); ABSOLUTE MONOCYTES (AUTO) 0.4 10^3/uL (0.1-1.4); ABSOLUTE NEUT (AUTO) 4.3 10^3/uL (1.7-8.2); BASOPHILS % (AUTO) 0.5 % (0-2); EOSINOPHILS % (AUTO) 1.2 % (0-6); HEMATOCRIT 48.6 % (36.0-47.0); HEMOGLOBIN 17.1 g/dL (12.0-15.5); LYMPHOCYTES % (AUTO) 35.9 % (13-45); MEAN CORPUSCULAR HEMOGLOBIN 35.6 pg (27.0-33.4); MEAN CORPUSCULAR HGB CONC 35.2 g/dL (32.0-36.0); MEAN CORPUSCULAR VOLUME 101 fl (80-97); MONOCYTES % (AUTO) 5.4 % (3-13); PLATELET COUNT 224 10^3/uL (150-450); RED CELL DISTRIBUTION WIDTH 19.5 % (11.5-14.0); TOTAL CELLS COUNTED % (AUTO) 100 %; WHITE BLOOD COUNT 7.6 10^3/uL (4.0-10.5)
[2019-05-21 20:15] LABS: ALBUMIN 4.8 g/dL (3.5-5.0); ALKALINE PHOSPHATASE 146 U/L (38-126); ANION GAP 13 (5-19); ASPARTATE AMINO TRANSFERASE 28 U/L (14-36); BILIRUBIN,DIRECT 0.3 mg/dL (0.0-0.4); BILIRUBIN,TOTAL 0.8 mg/dL (0.2-1.3); BLOOD UREA NITROGEN 12 mg/dL (7-20); CALCIUM 10.2 mg/dL (8.4-10.2); CARBON DIOXIDE 28 mmol/L (22-30); CHLORIDE 92 mmol/L (98-107); GLUCOSE 110 mg/dL (75-110); POTASSIUM 3.8 mmol/L (3.6-5.0); TOTAL PROTEIN 8.1 g/dL (6.3-8.2)
[2019-05-22] MEDS ORDERED: NORMAL SALINE 1000 ML 1,000 ML IV ONE (01:03)
--- NOTE | 2019-05-22 03:08 | RADIOLOGY REPORT (SQ) ---
EXAM DESCRIPTION: CT ABDOMEN PELVIS WITHOUT IV CONTRAST COMPLETED DATE/TME: 05/22/2019 01:04 CLINICAL HISTORY: 64 years, Female, ruq abd after eating COMPARISON: None. TECHNIQUE: Images stored on PACS. All CT scanners at this facility use dose modulation, iterative reconstruction, and/or weight based dosing when appropriate to reduce radiation dose to as low as reasonably achievable (ALARA). [facility]: Dose Right [facility]: CareDose [facility]: Dose Right [facility]: Teradose 4D [facility]: Ready Solar LIMITATIONS: None. FINDINGS: Lung bases are grossly clear. The heart is of normal size. No pleural or pericardial fluid. The liver is homogeneous. Gallbladder is nondistended without inflammatory change. Pancreas is unremarkable. Spleen appears grossly normal. The adrenals and kidneys are also grossly normal. The bowel is nonobstructed. No focal inflammatory changes. The bowel is unopacified with oral contrast. No free air. No free fluid. The visualized bones demonstrate age-appropriate osteoarthritis IMPRESSION: Artifact the patient's arms. Imaging is degraded by patient motion, with resultant artifact. The best possible images were obtained. No acute intra-abdominal process is identified. TECHNICAL DOCUMENTATION: Quality ID # [id number]: Final reports with documentation of one or more dose reduction techniques (e.g., Automated exposure control, adjustment of the mA and/or kV according to patient size, use of iterative reconstruction technique) copyright 2011 [employer]- All Rights Reserved
[2019-05-22 03:09] LABS: APPEARANCE,URINE SLIGHTLY-CLOUDY; BILIRUBIN,URINE NEGATIVE (NEGATIVE); COLOR,URINE YELLOW; GLUCOSE, URINE NEGATIVE (NEGATIVE); KETONES,URINE NEGATIVE (NEGATIVE); PROTEIN,URINE NEGATIVE (NEGATIVE); UROBILINOGEN,URINE NEGATIVE mg/dL (<2.0)
--- NOTE | 2019-05-22 05:34 | ER Document Report ---
Entered by JERE NGUYEN SCRIBE 05/22/19 0057 Acting as scribe for:FILOMENA MARIA MD ED General - General Chief Complaint: Chest Pain > 30 Stated Complaint: CHEST PAIN Time Seen by Provider: 05/21/19 17:46 Primary Care Provider: INDU BORJA PA-C [Primary Care Provider] - Follow up as needed Information source: Patient Notes: 64-year-old female presents to the emergency department complaining of abdominal pain "that is straight through to my back" that began yesterday. Patient stated that pain began after eating country ham, 2 eggs and grits. Patient reports that she did not sleep well due to the pain. Patient describes the pain as worse this morning and "hurts to breathe". Patient stated that after her loose bowel movement in the ED her pain did not go away. TRAVEL OUTSIDE OF THE [place] IN LAST 30 DAYS: No - Related Data Allergies/Adverse Reactions: aspirin [Aspirin] Allergy (Verified 05/21/19 17:43) Home Medications: [facility] (258) Past Medical History - General Information source: Patient - Social History Smoking Status: Current Every Day Smoker Cigarette use (# per day): Yes - 1/4 pack per day Chew tobacco use (# tins/day): No Frequency of alcohol use: Occasional Drug Abuse: None Family History: CAD, Hypertension Patient has suicidal ideation: No Patient has homicidal ideation: No - Past Medical History Cardiac Medical History: Reports: Hx Hypercholesterolemia, Hx Hypertension Pulmonary Medical History: Reports: Hx Asthma, Hx Pneumonia Renal/ Medical History: Reports: Hx End Stage Renal Disease Musculoskeletal Medical History: Reports Hx Arthritis - knee's, back, hips Psychiatric Medical History: Reports: Hx Depression Past Surgical History: Reports: Hx Appendectomy, Hx Section - x3, Hx Hysterectomy, Hx Orthopedic Surgery - roxie knee/roxie feet/right hand, Hx To nsillectomy - Immunizations Hx Diphtheria, Pertussis, Tetanus Vaccination: Yes Review of Systems - Review of Systems Constitutional: denies: Fever EENT: No symptoms reported Cardiovascular: No symptoms reported Respiratory: No symptoms reported Gastrointestinal: See HPI, Abdominal pain Genitourinary: No symptoms reported Female Genitourinary: No symptoms reported Musculoskeletal: See HPI, Back pain Skin: No symptoms reported Hematologic/Lymphatic: No symptoms reported Neurological/Psychological: No symptoms reported -: Yes All other systems reviewed and negative Physical Exam - Vital signs Vitals: Temp Pulse Resp BP Pulse Ox 97.6 F 110 H 18 116/96 H 97 05/21/19 17:05 05/21/19 17:05 05/21/19 17:05 05/21/19 17:05 05/21/19 17:05 - Notes Notes: Physical Exam: General: Alert, appears well. HEENT: Normocephalic. Atraumatic. PERRL. Extraocular movements intact. Oropharynx clear. Neck: Supple. Non-tender. Respiratory: No respiratory distress. Clear and equal breath sounds bilaterally. Cardiovascular: Regular rate and rhythm. Abdominal: RUQ tenderness to palpation. No distension. Normal Bowel Sounds. Back: No gross abnormalities. Extremities: Moves all four extremities. Upper extremities: Normal inspection. Normal ROM. Lower extremities: Normal inspection. No edema. Normal ROM. Neurological: Normal cognition. AAOx4. Normal speech. Psychological: Normal affect. Normal Mood. Skin: Warm. Dry. Normal color. Course - Vital Signs Vital signs: Temp Pulse Resp BP Pulse Ox 97.9 F 101 H 14 132/82 H 96 05/22/19 00:13 05/21/19 23:52 05/22/19 04:01 05/22/19 04:01 05/22/19 04:01 05/22/19 05:31 Patient has received 1 L IV normal saline. And is feeling better. There is no rebound or abdominal guarding on abdominal exam at this time. Discussed with patient that she had a low level troponin that was initially 0.030 and has declined and decreased down to 0.022. Is not having any symptoms of chest discomfort tightness nausea or burning. - Laboratory Result Diagrams: 05/21/19 19:40 05/21/19 19:40 Laboratory results interpreted by me: 05/21/19 05/21/19 19:40 19:40 Hgb 17.1 H Hct 48.6 H MCV 101 H MCH 35.6 H RDW 19.5 H Sodium 132.7 L Chloride 92 L Creatinine 1.37 H Est GFR ( Amer) 47 L Est GFR (MDRD) Non-Af 39 L Alkaline Phosphatase 146 H - Diagnostic Test Radiology reviewed: Image reviewed, Reports reviewed - EKG Interpretation by Me Additional EKG results interpreted by me: 05/22/19 05:29 5-lead EKG shows sinus tachycardia rate of 113 aberrant complex possibly supraventricular. Probable inferior infarct old. Discharge - Discharge Clinical Impression: Abdominal pain, History of pancreatitis, Dehydration Condition: Stable Disposition: HOME, SELF-CARE Instructions: Abdominal Pain ([facility]), Antispasmodics ([facility]) Additional Instructions: Abdominal Pain There are many causes of abdominal pain. Pain can mean a serious problem requiring surgery (such as appendicitis). It can also be an innocent problem that goes away on its own (such as a viral infection). Often, time must pass to determine the cause of pain. The physician does not feel that hospitalization is necessary, at present. Things may change within the next 24 hours. Call the doctor or come back for re- examination if any problems occur, such as: (1) Pain that becomes more severe, steady, or becomes concentrated in one specific area. Also, pain that is more severe with movement or coughing. (2) Vomiting that persists or becomes more frequent. (3) Blood in the vomitus, urine, or bowel movements. Blood in the stool may have a tarry or black appearance. (4) Shaking chills or fever greater than 100 degrees F. (5) The abdomen becomes more distended or swollen. (6) Bowel movements cease. (7) Failure to improve as expected. Prescriptions: Dicyclomine HCl [Bentyl 10 mg Capsule] 1 cap PO TID PRN #30 cap PRN Reason: Abdominal Cramping Referrals: INDU BORJA PA-C [Primary Care Provider] - Follow up as needed I personally performed the services described in the documentation, reviewed and edited the documentation which was dictated to the scribe in my presence, and it accurately records my words and actions.
[2019-05-22 05:55] VITALS: BP 129/82
== END 2019-05-22 05:55 | disposition home or self-care (01) ==
LOC: ER 16:43
DX: R10.9 Unspecified abdominal pain (principal); R10.811 Right upper quadrant abdominal tenderness; R00.0 Tachycardia, unspecified; E86.0 Dehydration; R07.1 Chest pain on breathing; M54.9 Dorsalgia, unspecified; F17.210 Nicotine dependence, cigarettes, uncomplicated; I10 Essential (primary) hypertension; J45.909 Unspecified asthma, uncomplicated; Z87.19 Personal history of other diseases of the digestive system; Z88.8 Allergy status to other drugs, medicaments and biological substances
CPT/HCPCS: 93005; 99285; 96360; 36415; 85025; 80053; 81001; 84484; 71046; 74176; 93010; J7030

== ENCOUNTER 2019-09-15 23:11 | Emergency (ER) | payer OTHER ==
[2019-09-15] MEDS ORDERED: HYDROCODONE/ACETAMINOPHEN 5-325 MG TABLET PO ONE (23:23)
--- NOTE | 2019-09-15 23:25 | ER Document Report ---
ED Medical Screen (RME) - General Chief Complaint: Laceration Stated Complaint: FALL/RIGHT LEG INJURY Time Seen by Provider: 09/15/19 23:18 Primary Care Provider: INDU BORJA PA-C [Primary Care Provider] - Follow up as needed Mode of Arrival: Wheelchair Information source: Patient Notes: 64-year-old female patient presented to the emergency department chief complaint of laceration to her right lower extremity. She has an approximate 4 cm laceration just distal to the right knee. She reports she fell from standing position hitting her knee/leg onto a piece of metal on a cat door. She reports her tetanus is up-to-date. There is no active bleeding noted at this time. I have greeted and performed a rapid initial assessment of this patient. A comprehensive ED assessment and evaluation of the patient, analysis of test results and completion of the medical decision making process will be conducted by additional ED providers. I have specifically instructed the patient or family members with the patient to immediately return to any nursing staff should anything change in the patient's condition or with their chief complaint. TRAVEL OUTSIDE OF THE [place] IN LAST 30 DAYS: No - Related Data Allergies/Adverse Reactions: aspirin [Aspirin] Allergy (Verified 05/21/19 17:43) Past Medical History - Past Medical History Cardiac Medical History: Reports: Hx Hypercholesterolemia, Hx Hypertension Denies: Hx Coronary Artery Disease, Hx Heart Attack Pulmonary Medical History: Reports: Hx Asthma, Hx Pneumonia Denies: Hx Bronchitis, Hx COPD Neurological Medical History: Denies: Hx Cerebrovascular Accident, Hx Seizures Endocrine Medical History: Denies: Hx Diabetes Mellitus Type 1, Hx Diabetes Mellitus Type 2 Renal/ Medical History: Reports: Hx End Stage Renal Disease. Denies: Hx Peritoneal Dialysis GI Medical History: Denies: Hx Hepatitis, Hx Hiatal Hernia, Hx Ulcer Musculoskeltal Medical History: Reports Hx Arthritis - knee's, back, hips Psychiatric Medical History: Reports: Hx Depression Infectious Medical History: Denies: Hx Hepatitis Past Surgical History: Reports: Hx Appendectomy, Hx Section - x3, Hx Hysterectomy, Hx Orthopedic Surgery - roxie knee/roxie feet/right hand, Hx Tonsillectomy. Denies: Hx Mastectomy, Hx Open Heart Surgery, Hx Pacemaker - Immunizations Hx Diphtheria, Pertussis, Tetanus Vaccination: Yes Physical Exam - Vital signs Vitals: Temp Pulse Resp BP Pulse Ox 98.1 F 88 17 157/111 H 100 06/07/20 23:16 09/15/19 23:16 09/15/19 23:16 09/15/19 23:16 09/15/19 23:16 Course - Vital Signs Vital signs: Temp Pulse Resp BP Pulse Ox 98.1 F 88 17 157/111 H 100 09/15/19 23:20 09/15/19 23:16 09/15/19 23:16 09/15/19 23:16 09/15/19 23:16 Doctor's Discharge - Discharge Referrals: INDU BORJA PA-C [Primary Care Provider] - Follow up as needed
--- NOTE | 2019-09-16 00:12 | RADIOLOGY REPORT (SQ) ---
CLINICAL INDICATION: laceration below knee. . TECHNIQUE: 3 view(s) were obtained of the right leg. COMPARISON: None. FINDINGS: No acute displaced fracture is identified of the leg. Alignment appears anatomic. Joint spaces are within normal limits for age. Surrounding soft tissues are unremarkable. If knee or ankle are clinically in suspicion, then dedicated radiography is advised. Old post traumatic change lateral malleolus. Old postsurgical change to the knee . IMPRESSION: No evidence of acute bony injury to the leg.
[2019-09-16] MEDS ORDERED: ONDANSETRON 4 MG TAB.RAPDIS PO ONE (00:47)
[2019-09-16] MEDS ORDERED: LIDOCAINE 1%/EPINEPHRINE INJ 20 ML VIAL INJ ONE (00:47)
--- NOTE | 2019-09-16 00:56 | ER Document Report ---
ED Wound - General Chief Complaint: Laceration Stated Complaint: FALL/RIGHT LEG INJURY Time Seen by Provider: 09/15/19 23:18 Primary Care Provider: INDU BORJA PA-C [Primary Care Provider] - Follow up as needed Mode of Arrival: Wheelchair Notes: Patient is a 64-year-old female that comes emergency department for chief complaint of laceration to the right leg just below the knee. She states that she tripped and fell from a standing position and struck her leg on a piece of metal on her pet door at her house. She states that she also bruised her right forearm. She denies hitting her head, she denies back pain, chest pain, focal numbness or weakness, incontinence. She is not on a blood thinner. Her tetanus is up-to-date within 5 years. She denies any other complaints. TRAVEL OUTSIDE OF THE [place] IN LAST 30 DAYS: No - Related Data Allergies/Adverse Reactions: aspirin [Aspirin] Allergy (Verified 09/16/19 00:56) Past Medical History - General Information source: Patient - Social History Smoking Status: Current Every Day Smoker Frequency of alcohol use: None Drug Abuse: None Lives with: Alone Family History: CAD, Hypertension Patient has homicidal ideation: No - Past Medical History Cardiac Medical History: Reports: Hx Hypercholesterolemia, Hx Hypertension Denies: Hx Coronary Artery Disease, Hx Heart Attack Pulmonary Medical History: Reports: Hx Asthma, Hx Pneumonia Denies: Hx Bronchitis, Hx COPD Neurological Medical History: Denies: Hx Cerebrovascular Accident, Hx Seizures Endocrine Medical History: Denies: Hx Diabetes Mellitus Type 1, Hx Diabetes Mellitus Type 2 Renal/ Medical History: Reports: Hx End Stage Renal Disease. Denies: Hx Peritoneal Dialysis GI Medical History: Denies: Hx Hepatitis, Hx Hiatal Hernia, Hx Ulcer Musculoskeletal Medical History: Reports Hx Arthritis - knee's, back, hips Psychiatric Medical History: Reports: Hx Depression Infectious Medical History: Denies: Hx Hepatitis Past Surgical History: Reports: Hx Appendectomy, Hx Section - x3, Hx Hysterectomy, Hx Orthopedic Surgery - roxie knee/roxie feet/right hand, Hx Tonsillectomy. Denies: Hx Mastectomy, Hx Open Heart Surgery, Hx Pacemaker - Immunizations Hx Diphtheria, Pertussis, Tetanus Vaccination: Yes Review of Systems - Review of Systems Constitutional: No symptoms reported EENT: No symptoms reported Cardiovascular: No symptoms reported Respiratory: No symptoms reported Gastrointestinal: No symptoms reported Genitourinary: No symptoms reported Female Genitourinary: No symptoms reported Musculoskeletal: See HPI Skin: See HPI Hematologic/Lymphatic: No symptoms reported Neurological/Psychological: No symptoms reported Physical Exam - Vital signs Vitals: Temp Pulse Resp BP Pulse Ox 98.1 F 88 17 157/111 H 100 09/15/19 23:16 09/15/19 23:16 09/15/19 23:16 09/15/19 23:16 09/15/19 23:16 - Notes Notes: GENERAL: Alert, interacts well. No acute distress. HEAD: Normocephalic, atraumatic. EYES: Pupils equal, round, and reactive to light. Extraocular movements intact. ENT: Oral mucosa moist, tongue midline. Oropharynx unremarkable. Airway patent. Nares patent, sinuses non-tender, ear canals unremarkable, TM's intact. NECK: Full range of motion. Supple. Trachea midline. No lymphadenopathy. LUNGS: Clear to auscultation bilaterally, no wheezes, rales, or rhonchi. No respiratory distress. Non-tender chest wall. HEART: Regular rate and rhythm. No murmur ABDOMEN: Soft, non-tender. Non-distended. Bowel sounds present in all 4 quadrants. GENITOURINARY: Deferred EXTREMITIES: There is a very small contusion to the ulnar aspect of the mid forearm over the right arm. No bony tenderness, no wounds, normal neurovascular exam. Upper extremities otherwise normal. Right lower extremity with a horizontal 3.5 cm laceration just below the knee in the anterior tibial area, mainly partial-thickness except the medial centimeter is full-thickness and I can evaluate what appears to be a tendon sheath. There is a small contusion just distal to this as well and a small abrasion. Otherwise unremarkable. Patient with full range of motion the knee, normal ankle exam, normal foot and leg exam otherwise, normal strength, range of motion, distal neurovascular exam. BACK: no cervical, thoracic, lumbar midline tenderness. No saddle anesthesia, normal distal neurovascular exam. Moves all extremities in full range of motion. NEUROLOGICAL: Alert and oriented x3. Normal speech. Cranial nerves II through XII grossly intact. Strength 5/5 in all extremities. PSYCH: Normal affect, normal mood. SKIN: Warm, dry, normal turgor. No rashes or lesions noted. Course - Re-evaluation Re-evalutation: Patient with a contusion to the right forearm, no bony tenderness, declines x- ray of this. X-ray of the right lower extremity with no acute findings. Patient has contusions, abrasions, and to the larger laceration. There is 1 part of the laceration that is very deep, I irrigated this very thoroughly, I had repaired with 2 subcuticular sutures and then repaired the surface without any difficulty. No neurovascular deficits, no evidence of tendon, ligament, nerve, or large vessel injury. I discussed wound care, follow-up, and return precautions. Patient states understanding and agreement. - Vital Signs Vital signs: Temp Pulse Resp BP Pulse Ox 98.0 F 100 18 155/107 H 98 09/16/19 01:46 09/16/19 01:46 09/16/19 01:46 09/16/19 01:46 09/16/19 01:46 Procedures - Laceration/Wound Repair Right lower leg Wound length (cm): 3.5 Wound's Depth, Shape: Linear Laceration pre-procedure: Sterile PPE donned, Sterile drapes applied, Shur-Clens applied Anesthetic type: 1% Lidocaine w/epi Volume Anesthetic (mLs): 7 Wound explored: Clean, No foreign body removed Irrigated w/ Saline (mLs): 100 Wound Repaired With: Sutures Suture Size/Type: 3:0, Ethilon Number of Sutures: 7 Layer Closure?: Yes Deep Layer Suture Size/Type: 5:0, Other - Vicryl Number Deep Layer Sutures: 2 Post-procedure wound care: Sterile dressing applied Post-procedure NV exam normal: Yes Complications: No Discharge - Discharge Clinical Impression: Skin abrasion Laceration of right lower leg Qualifiers: Encounter type: initial encounter Qualified Code(s): S81.811A - Laceration without foreign body, right lower leg, initial encounter Contusion of leg Qualifiers: Encounter type: initial encounter Laterality: right Qualified Code(s): S80.11XA - Contusion of right lower leg, initial encounter Condition: Stable Disposition: HOME, SELF-CARE Additional Instructions: The x-ray is negative. The sutures need to be removed in 7 to 10 days at a medical facility. See primary care follow-up referral. Keep area clean, clean with soap and water, dab dry, apply topical antibiotic and dressing. Avoid soaking or scrubbing the area. Return for any signs of infection including developing pain, redness, swelling, discolored drainage, fever, or any other concerning symptoms. Referrals: INDU BORJA PA-C [Primary Care Provider] - Follow up as needed
[2019-09-16 01:59] VITALS: BP 155/107
== END 2019-09-16 01:59 | disposition home or self-care (01) ==
LOC: ER 23:11
DX: S81.811A Laceration without foreign body, right lower leg, initial encounter (principal); S80.11XA Contusion of right lower leg, initial encounter; W01.0XXA Fall on same level from slipping, tripping and stumbling without subsequent striking against object, initial encounter; F17.200 Nicotine dependence, unspecified, uncomplicated; E78.00 Pure hypercholesterolemia, unspecified; I10 Essential (primary) hypertension; Z88.6 Allergy status to analgesic agent; Z90.710 Acquired absence of both cervix and uterus
CPT/HCPCS: 99283; 73590; 12002; S0119; J3490

== ENCOUNTER 2019-12-06 16:46 | Inpatient (IN) | payer OTHER ==
--- NOTE | 2019-12-06 17:36 | ER Document Report ---
ED Medical Screen (RME) - General Chief Complaint: Leg Swelling Stated Complaint: LEG SWELLING Time Seen by Provider: 12/06/19 17:29 Primary Care Provider: INDU BORJA PA-C [Primary Care Provider] - Follow up as needed Mode of Arrival: Wheelchair Information source: Patient Notes: Patient presents complaining of left lower extremity swelling for the past month. Patient states that she has a chronic cough and has had shortness of breath since yesterday. Patient denies any chest pain. Patient denies any fever. Patient does have a history of chronic kidney disease and asthma. I have greeted and performed a rapid initial assessment of this patient. A comprehensive ED assessment and evaluation of the patient, analysis of test results and completion of the medical decision making process will be conducted by additional ED providers. TRAVEL OUTSIDE OF THE [place] IN LAST 30 DAYS: No - Related Data Allergies/Adverse Reactions: aspirin [Aspirin] Allergy (Verified 09/16/19 00:56) Past Medical History - Past Medical History Cardiac Medical History: Reports: Hx Hypercholesterolemia, Hx Hypertension Denies: Hx Coronary Artery Disease, Hx Heart Attack Pulmonary Medical History: Reports: Hx Asthma, Hx Pneumonia Denies: Hx Bronchitis, Hx COPD Neurological Medical History: Denies: Hx Cerebrovascular Accident, Hx Seizures Endocrine Medical History: Denies: Hx Diabetes Mellitus Type 1, Hx Diabetes Mellitus Type 2 Renal/ Medical History: Reports: Hx End Stage Renal Disease. Denies: Hx Peritoneal Dialysis GI Medical History: Denies: Hx Hepatitis, Hx Hiatal Hernia, Hx Ulcer Musculoskeltal Medical History: Reports Hx Arthritis - knee's, back, hips Psychiatric Medical History: Reports: Hx Depression Infectious Medical History: Denies: Hx Hepatitis Past Surgical History: Reports: Hx Appendectomy, Hx Section - x3, Hx Hysterectomy, Hx Orthopedic Surgery - roxie knee/roxie feet/right hand, Hx Tonsillectomy. Denies: Hx Mastectomy, Hx Open Heart Surgery, Hx Pacemaker - Immunizations Hx Diphtheria, Pertussis, Tetanus Vaccination: Yes Physical Exam - Vital signs Vitals: Temp Pulse Resp BP Pulse Ox 98.1 F 109 H 20 121/89 H 92 12/06/19 16:55 12/06/19 16:55 12/06/19 16:55 12/06/19 16:55 12/06/19 16:55 - General Notes: 3+ edema to left lower extremity, patient tachycardic Course - Vital Signs Vital signs: Temp Pulse Resp BP Pulse Ox 98.1 F 109 H 20 121/89 H 92 12/06/19 16:55 12/06/19 16:55 12/06/19 16:55 12/06/19 16:55 12/06/19 16:55 Doctor's Discharge - Discharge Referrals: INDU BORJA PA-C [Primary Care Provider] - Follow up as needed
--- NOTE | 2019-12-06 18:47 | RADIOLOGY REPORT (SQ) ---
EXAM DESCRIPTION: CHEST SINGLE VIEW IMAGES COMPLETED DATE/TIME: 12/06/2019 6:04 pm REASON FOR STUDY: sob COMPARISON: 05/21/2019 EXAM PARAMETERS: NUMBER OF VIEWS: One view. TECHNIQUE: Single frontal radiographic view of the chest acquired. RADIATION DOSE: NA LIMITATIONS: None. FINDINGS: LUNGS AND PLEURA: No opacities, masses or pneumothorax. No pleural effusion. MEDIASTINUM AND HILAR STRUCTURES: No masses. Contour normal. HEART AND VASCULAR STRUCTURES: Heart normal in size. Normal vasculature. BONES: No acute findings. HARDWARE: None in the chest. OTHER: No other significant finding. IMPRESSION: NO ACUTE RADIOGRAPHIC FINDING IN THE CHEST. TECHNICAL DOCUMENTATION: JOB ID: [id number] 2010 [employer]- All Rights Reserved Reading location - IP/workstation name: [email or web address]
[2019-12-06 18:58] LABS: ABSOLUTE EOSINOPHILS # (AUTO) 0.1 10^3/uL (0.0-0.6); ABSOLUTE MONOCYTES (AUTO) 0.4 10^3/uL (0.1-1.4); ABSOLUTE NEUT (AUTO) 3.6 10^3/uL (1.7-8.2); BASOPHILS % (AUTO) 0.2 % (0-2); EOSINOPHILS % (AUTO) 0.9 % (0-6); HEMATOCRIT 39.8 % (36.0-47.0); HEMOGLOBIN 13.4 g/dL (12.0-15.5); LYMPHOCYTES % (AUTO) 32.7 % (13-45); MEAN CORPUSCULAR HEMOGLOBIN 34.9 pg (27.0-33.4); MEAN CORPUSCULAR HGB CONC 33.7 g/dL (32.0-36.0); MEAN CORPUSCULAR VOLUME 104 fl (80-97); MONOCYTES % (AUTO) 6.7 % (3-13); PLATELET COUNT 215 10^3/uL (150-450); RED BLOOD COUNT 3.84 10^6/uL (3.72-5.28); RED CELL DISTRIBUTION WIDTH 15.3 % (11.5-14.0); SEGMENTED NEUTROPHILS % (AUTO) 59.5 % (42-78); TOTAL CELLS COUNTED % (AUTO) 100 %; WHITE BLOOD COUNT 6.1 10^3/uL (4.0-10.5)
[2019-12-06 19:08] LABS: INTERNATIONAL RATION (INR) 0.91; PROTHROMBIN TIME 12.5 SEC (11.4-15.4)
[2019-12-06 19:09] LABS: PARTIAL THROMBOPLASTIN TIME 26.7 SEC (23.5-35.8)
[2019-12-06 19:17] LABS: ALBUMIN 3.4 g/dL (3.5-5.0); ALKALINE PHOSPHATASE 105 U/L (38-126); ANION GAP 7 (5-19); ASPARTATE AMINO TRANSFERASE 28 U/L (14-36); BILIRUBIN,DIRECT 0.3 mg/dL (0.0-0.4); BILIRUBIN,TOTAL 0.7 mg/dL (0.2-1.3); BLOOD UREA NITROGEN 17 mg/dL (7-20); CALCIUM 8.7 mg/dL (8.4-10.2); CARBON DIOXIDE 29 mmol/L (22-30); CHLORIDE 100 mmol/L (98-107); GLUCOSE 106 mg/dL (75-110); POTASSIUM 3.7 mmol/L (3.6-5.0); TOTAL PROTEIN 5.8 g/dL (6.3-8.2)
[2019-12-06] MEDS ORDERED: MAGNESIUM SULFATE/D5W 1 GM/100 ML RTUPB IV ONE (19:43)
--- NOTE | 2019-12-06 19:56 | ER Document Report ---
ED General - General Chief Complaint: Leg Swelling Stated Complaint: LEG SWELLING Time Seen by Provider: 12/06/19 17:29 Primary Care Provider: INDU BORJA PA-C [Primary Care Provider] - Follow up as needed Mode of Arrival: Wheelchair Notes: 12/06/19 17:36 - ED Nursing Note by KURTIS ALVAREZ Acct Num: [id number] : 1955 Patient Age: 64 Pt arrives to ED via wheelchair with c/o left lower leg swelling. Pt states that she seen her regular HCP prior to arrival and she advised that she come to the ER to rule out a blood clot. Pt denies any injury to the leg, no pain, chest pain, or SOB, only tender spots on the left lower leg where the swelling is. Pt denies history of DVT's. Pt aaox4, respirations e/u, skin warm and dry, NAD noted at this time. Pt noted to have swelling to the left lower leg. Initialized on 12/06/19 17:36 - END OF NOTE My Notes 64-year-old female arrives by POV with her good friend Catia. The patient advises she has had 3 weeks of swollen left lower leg with positive Homans sign upon arrival. She also reports since 1 week ago she had 10 days of severe shortness of breath but denies any hemoptysis. She has no prior history of DVTs or pulmonary emboli. She is satting 93% on room air with tachycardia at 115. Patient denies any long distance travel flight scuba diving skydiving prolonged sitting. She does have brawny skin from smoking her cigarettes out on the porch. She denies prolonged sitting more than 30 minutes. No other family member has similar symptoms. She does report she is had a history of tachycardia in the past. She denies any thyroid problems. Patient smokes half a pack of cigarettes a daily since she was 19 years old and she "drinks beer or vodka on a daily basis but has not been able to do so for 3 weeks because she has been unable to get to the [employer] store." TRAVEL OUTSIDE OF THE [place] IN LAST 30 DAYS: No - HPI Onset: Last week Onset/Duration: Sudden, Persistent, Worse Severity: Severe Pain Level: 4 Associated symptoms: Shortness of breath Exacerbated by: Walking Relieved by: Remaining still Similar symptoms previously: No Recently seen / treated by doctor: No - Related Data Allergies/Adverse Reactions: aspirin [Aspirin] Allergy (Verified 09/16/19 00:56) Past Medical History - General Information source: Patient - Social History Smoking Status: Current Every Day Smoker Cigarette use (# per day): No Chew tobacco use (# tins/day): No Smoking Education Provided: No Frequency of alcohol use: None Drug Abuse: None Lives with: Family Family History: CAD, Hypertension Patient has suicidal ideation: No Patient has homicidal ideation: No - Past Medical History Cardiac Medical History: Reports: Hx Hypercholesterolemia, Hx Hypertension Denies: Hx Coronary Artery Disease, Hx Heart Attack Pulmonary Medical History: Reports: Hx Asthma, Hx Pneumonia Denies: Hx Bronchitis, Hx COPD Neurological Medical History: Denies: Hx Cerebrovascular Accident, Hx Seizures Endocrine Medical History: Denies: Hx Diabetes Mellitus Type 1, Hx Diabetes Mellitus Type 2 Renal/ Medical History: Reports: Hx End Stage Renal Disease. Denies: Hx Peritoneal Dialysis GI Medical History: Denies: Hx Hepatitis, Hx Hiatal Hernia, Hx Ulcer Musculoskeletal Medical History: Reports Hx Arthritis - knee's, back, hips Psychiatric Medical History: Reports: Hx Depression Infectious Medical History: Denies: Hx Hepatitis Past Surgical History: Reports: Hx Appendectomy, Hx Section - x3, Hx Hysterectomy, Hx Orthopedic Surgery - roxie knee/roxie feet/right hand, Hx Tonsillectomy. Denies: Hx Mastectomy, Hx Open Heart Surgery, Hx Pacemaker - Immunizations Hx Diphtheria, Pertussis, Tetanus Vaccination: Yes Review of Systems - Review of Systems Constitutional: No symptoms reported EENT: No symptoms reported Cardiovascular: See HPI, Chest pain, Dizziness Respiratory: No symptoms reported Gastrointestinal: No symptoms reported Genitourinary: No symptoms reported Female Genitourinary: No symptoms reported Musculoskeletal: No symptoms reported Skin: No symptoms reported Hematologic/Lymphatic: No symptoms reported Neurological/Psychological: No symptoms reported Physical Exam - Vital signs Vitals: Temp Pulse Resp BP Pulse Ox 98.1 F 109 H 20 121/89 H 92 12/06/19 16:55 12/06/19 16:55 12/06/19 16:55 12/06/19 16:55 12/06/19 16:55 - General General appearance: Appears well - HEENT Head: Normocephalic, Atraumatic Eyes: Normal Pupils: PERRL Mouth/Lips: Normal Mucous membranes: Normal Pharynx: Normal Neck: Normal - Respiratory Respiratory status: No respiratory distress Chest status: Nontender Breath sounds: Normal Chest palpation: Normal - Cardiovascular Rhythm: Tachycardia Heart sounds: Normal auscultation Murmur: No - Abdominal Inspection: Normal Distension: No distension Bowel sounds: Normal Tenderness: Nontender Organomegaly: No organomegaly - Rectal Hemorrhoids: Other - deferred - Genitourinary Bimanuel exam: Other - deferred - Back Back: Normal - Extremities General upper extremity: Normal inspection General lower extremity: Edema - LLE pos Homans, Meri's sign - Neurological Neuro grossly intact: Yes Cognition: Normal Orientation: AAOx4 [place] Coma Scale Eye Opening: Spontaneous [place] Coma Scale Verbal: Oriented [place] Coma Scale Motor: Obeys Commands Kareem Coma Scale Total: 15 Speech: Normal Motor strength normal: LUE, RUE, LLE, RLE Sensory: Normal - Psychological Associated symptoms: Normal affect - Skin Skin Temperature: Warm Skin Moisture: Dry Skin Color: Morrow Course - Vital Signs Vital signs: Temp Pulse Resp BP Pulse Ox 98.1 F 109 H 20 121/89 H 100 12/06/19 16:55 12/06/19 16:55 12/06/19 16:55 12/06/19 16:55 12/06/19 23:00 - Laboratory Result Diagrams: 12/06/19 18:38 12/06/19 18:38 Laboratory results interpreted by me: 12/06/19 12/06/19 18:38 18:38 MCV 104 H MCH 34.9 H RDW 15.3 H Sodium 135.8 L Magnesium 1.0 L* Total Protein 5.8 L Albumin 3.4 L - Diagnostic Test Radiology reviewed: Reports reviewed Critical Care Note - Critical Care Note Comments: I discussed this case with Dr Tobias who advised transfer for embolectomy 2134; I called [facility] 2144 I spoke with Елена about admission at [facility]. We will discussed this case with Zander.. Actually I spoke with Dr. Sanchez who advised sending the images to the vascular surgeon there at [facility]. Also she advised potentially for TPA and poor R ICU cycle touring guide here at [place]. This conversation was around 2214. Елена called back around 2244 and advised the vascular surgeon will be occupied until early tomorrow morning because of surgical case. I also called [facility] and spoke with Dr. David Black via the transfer center and he advised no transfer is indicated because she at the time is clinically well and was advised anticoagulation. Also there is a 24-hour bed limitation and she will be put on potential for transfer for tomorrow if needed. Call them back if patient's condition worsens. At this time I spoke with cycle touring guide here at this hospital.[employer] [facility] Discharge - Discharge Clinical Impression: Homans sign present, Tachycardia, Hypomagnesemia DVT of lower limb, acute Qualifiers: Affected thrombotic vein of extremity: unspecified vein of extremity Laterality: left Qualified Code(s): I82.402 - Acute embolism and thrombosis of unspecified deep veins of left lower extremity Pulmonary emboli Qualifiers: Pulmonary embolism type: saddle Chronicity: acute Acute cor pulmonale presence: unspecified Qualified Code(s): I26.92 - Saddle embolus of pulmonary artery without acute cor pulmonale Condition: Good Disposition: [facility] Referrals: INDU BORJA PA-C [Primary Care Provider] - Follow up as needed
--- NOTE | 2019-12-06 21:14 | RADIOLOGY REPORT (SQ) ---
EXAM DESCRIPTION: US EXTREMITY VEINS UNILATERAL COMPLETED DATE/TME: 12/06/2019 17:34 CLINICAL HISTORY: 64 years, Female, LLE swelling COMPARISON: None. FINDINGS: Right common femoral vein examined without clot. Left common femoral vein is patent. Extensive nonocclusive thrombus in the left femoral vein popliteal vein and posterior tibial vein. Peroneal vein not visualized. Greater saphenous vein patent. IMPRESSION: Extensive nonocclusive clot in the left lower extremity. Preliminary results were provided to the ordering physician by technologist at 6:45 PM.
[2019-12-06] MEDS ORDERED: HEPARIN SOD (PORCINE) 1,000 UNIT/ML 10 ML VIAL IV ONE (21:40)
[2019-12-06] MEDS ORDERED: RIVAROXABAN 15 MG TABLET PO ONE (21:41)
--- NOTE | 2019-12-06 21:43 | RADIOLOGY REPORT (SQ) ---
CLINICAL INDICATION: sob. Renal dysfunction. TECHNIQUE: CT arteriography was obtained of the chest with multiplanar MIP and/or 3-D angiographic reconstructions. This exam was performed according to our departmental dose-optimization program, which includes automated exposure control, adjustment of the mA and/or kV according to patient size and/or use of iterative reconstruction techniques. COMPARISON: March 23, 2018. CORRELATION: None. FINDINGS: Adequate contrast bolus. Average Hounsfield unit measurement within main pulmonary artery segment of 441. Artifact from venous opacification. Artifact from motion There is evidence of bilateral pulmonary emboli. These a large emboli extending from main pulmonary arteries bilaterally into all branches. This disease is near occlusive in the peripheral right main pulmonary artery. There is also a large central thrombus which is near occlusive within the left lower lobe. Small fragments are seen laterally. There is flattening of the interventricular septum, consistent with right heart strain with prominence of the right ventricle, adverse change when compared to prior... Thoracic aorta is of normal caliber. The heart is prominent. Small pericardial effusion, adverse change from prior but not likely percutaneously accessible.. Maximum thickness adjacent to the right atrium of no more than 5 mm. No bulky mediastinal adenopathy. The lungs demonstrate minimal patchy airspace disease in a subpleural distribution superior segment right lower lobe, adverse change from prior. Similar changes also seen posterior basal segment right lower lobe. No effusion. No pneumothorax. Detail obscured by motion. Visualized abdominal contents are unremarkable. Visualized bones are unremarkable. IMPRESSION: Bilateral pulmonary emboli. These apparently central large emboli, partly occlusive. This is significant thrombus burden. There is evidence of right heart strain. Minimal patchy airspace disease right lower lobe of unknown significance. No evidence of significant pleural fluid.. Small pericardial effusion, not likely percutaneously accessible . These findings were discussed personally by phone with, and an understanding was acknowledged by, Dr. MARYAM LOE on 12/06/2019 8:40 PM CDT.
--- NOTE | 2019-12-06 23:36 | EKG REPORT ---
SEVERITY:- ABNORMAL ECG - SINUS TACHYCARDIA PROBABLE ANTEROSEPTAL INFARCT, AGE INDETERM : Confirmed by: Prisca Wiley MD 06-Dec-2019 23:35:46
[2019-12-07] MEDS: HEPARIN SODIUM,PORCINE/D5W 25,000 UNIT/250 ML RTUINJ IV PRN (00:01)
[2019-12-07 02:16] LABS: ABSOLUTE EOSINOPHILS # (AUTO) 0.1 10^3/uL (0.0-0.6); ABSOLUTE LYMPHOCYTES (AUTO) 2.3 10^3/uL (0.5-4.7); ABSOLUTE MONOCYTES (AUTO) 0.4 10^3/uL (0.1-1.4); TOTAL CELLS COUNTED % (AUTO) 100 %
[2019-12-07 02:26] LABS: INTERNATIONAL RATION (INR) 1.83
[2019-12-07 02:27] LABS: ABSOLUTE NEUT (AUTO) 2.9 10^3/uL (1.7-8.2); BASOPHILS % (AUTO) 0.5 % (0-2); EOSINOPHILS % (AUTO) 1.5 % (0-6); HEMATOCRIT 33.7 % (36.0-47.0); HEMOGLOBIN 11.5 g/dL (12.0-15.5); LYMPHOCYTES % (AUTO) 40.2 % (13-45); MEAN CORPUSCULAR HEMOGLOBIN 35.2 pg (27.0-33.4); MEAN CORPUSCULAR HGB CONC 34.2 g/dL (32.0-36.0); MEAN CORPUSCULAR VOLUME 103 fl (80-97); MONOCYTES % (AUTO) 7.1 % (3-13); PLATELET COUNT 164 10^3/uL (150-450); RED BLOOD COUNT 3.27 10^6/uL (3.72-5.28); RED CELL DISTRIBUTION WIDTH 15.3 % (11.5-14.0); SEGMENTED NEUTROPHILS % (AUTO) 50.7 % (42-78); WHITE BLOOD COUNT 5.7 10^3/uL (4.0-10.5)
[2019-12-07 02:39] LABS: PROTHROMBIN TIME 21.3 SEC (11.4-15.4)
[2019-12-07] MEDS: MAGNESIUM SULFATE/D5W 1 GM/100 ML RTUPB IV SCH ×2 (03:43→04:40)
--- NOTE | 2019-12-07 03:54 | CRITICAL CARE ADMISSION REPORT ---
HPI Date:: 12/07/19 Time:: 02:00 Reason for ICU Reason:: Submassive Pulmonary Embolism Admission Date/Time & PCP: Admission Date/Time: 12/07/19 00:24 Primary Care Provider: INDU BORJA PA-C HPI: Ms. Payton Freeman is a 64-year-old female with a past medical history of hypertension, and peripheral neuropathy. Presented to the ER today with complaints of lower leg swelling for approximately 3 weeks. She denies any pain to that leg but did have a positive Homans sign in the ER. She has had no prior history of DVTs or pulmonary emboli. Her O2 sats 97% on room air she was tachycardic at 115. She denies any long distance travel, long flights, prolonged sitting. She is a heavy smoker. She denies any family history of clotting disorder, DVTs or PEs. She had a venous Doppler to the left lower extremity in the ER which revealed extensive nonocclusive clot in the left lower extremity. CTA of the chest revealed bilateral pulmonary emboli partly occlusive significant thrombus burden and evidence of right heart strain. She was initially to be sent to [facility] but they were unable to accept the patient at this time. [facility] was called and was unable to accept her. She is admitted to the ICU for further management. History obtained from:: Patient - Diagnosis/Plan (1) Pulmonary emboli Qualifiers: Pulmonary embolism type: saddle Chronicity: acute Acute cor pulmonale presence: unspecified Qualified Code(s): I26.92 - Saddle embolus of pulmonary artery without acute cor pulmonale Is this a current diagnosis for this admission?: Yes Plan: She was given 1 dose of Xarelto in the ED. Will hold Xarelto and start heparin drip PE protocol Hypercoagulable work-up sent Chest x-ray and EKG in a.m. (2) Hypomagnesemia Is this a current diagnosis for this admission?: Yes Plan: Mag level in ER 1.0 was given 1 g of magnesium sulfate Repeat mag level here 1.3 will give 2 g mag sulfate Daily magnesium levels (3) Hypertension Qualifiers: Hypertension type: essential hypertension Qualified Code(s): I10 - Essential (primary) hypertension Is this a current diagnosis for this admission?: Yes Plan: Continue home dose lisinopril Past Medical History Cardiac Medical History: Reports: Hyperlipidema, Hypertension Denies: Coronary Artery Disease, Myocardial Infarction Pulmonary Medical History: Reports: Asthma, Pneumonia Denies: Bronchitis, Chronic Obstructive Pulmonary Disease (COPD) Neurological Medical History: Denies: Seizures Endocrine Medical History: Denies: Diabetes Mellitus Type 1, Diabetes Mellitus Type 2 Renal/ Medical History: Reports: End Stage Renal Disease GI Medical History: Denies: Hepatitis, Hiatal Hernia Musculoskeltal Medical History: Reports: Arthritis - knee's, back, hips Psychiatric Medical History: Reports: Depression Hematology: Denies: Anemia, Sickle Cell Disease Past Surgical History Past Surgical History: Reports: Appendectomy, Section - x3, Hystere ctomy, Orthopedic Surgery - roxie knee/roxie feet/right hand, Tonsillectomy Denies: Amputation, Mastectomy, Pacemaker Social/Family History - Social History Lives with: Family Smoking Status: Current Every Day Smoker Cigarettes Packs Per Day: 0.5 Last Time Smoked: today Frequency of Alcohol Use: Occasional Hx Recreational Drug Use: No Drugs: None Hx Prescription Drug Abuse: No - Medication/Allergies Home Medications: Clopidogrel Bisulfate [Plavix 75 mg Tablet] 75 mg PO DAILY 10/29/15 Cyclobenzaprine HCl [Flexeril 10 mg Tablet] 10 mg PO TIDP PRN 10/29/15 Pantoprazole Sodium [Protonix] 40 mg PO BID 10/29/15 Nitroglycerin [Nitrostat] 1 tab SL PRN PRN 10/28/17 Acetaminophen [Tylenol] 325 mg PO PRN PRN 03/14/18 Thiamine HCl [Thiamine 100 mg Tablet] 100 mg PO DAILY tablet 03/20/18 Cetirizine HCl [Zyrtec 10 mg Tablet] 1 tab PO DAILY 09/18/18 Fluticasone/Vilanterol [Breo 100-25 Mcg Ellipta 14 Dose/Dpi] 1 inh IH DAILY 09/18/18 Folic Acid 0.4 mg PO TID 09/18/18 Magnesium 30 mg PO ASDIR PRN 09/18/18 Montelukast Sodium [Singulair 10 mg Tablet] 10 mg PO QHS 09/18/18 Potassium Bicarbonate/Cit AC [Potassium 25 Meq Tab Eff] 25 meq PO ASDIR PRN 09/18/18 Diazepam [Valium] 1 tab PO PRN PRN 09/24/18 Hydrocodone/Acetaminophen [[place] 5-325 mg Tablet] 1 tab PO Q4H PRN #40 tab 09/24/18 Cephalexin Monohydrate [Keflex 500 mg Capsule] 500 mg PO BID #14 capsule 02/02/19 Hydrocodone/Acetaminophen [[place] 5-325 mg Tablet] 1 tab PO BID PRN #10 tablet 02/02/19 Lisinopril 20 mg PO DAILY #14 tablet 02/02/19 Dicyclomine HCl [Bentyl 10 mg Capsule] 1 cap PO TID PRN #30 cap 05/22/19 Allergies/Adverse Reactions: aspirin [Aspirin] Allergy (Verified 09/16/19 00:56) Review of Systems All systems: reviewed and no additional remarkable complaints except as stated - Left leg edema Physical Exam Vital Signs: Temp Pulse Resp BP Pulse Ox 98.4 F 103 H 17 147/105 H 94 12/07/19 01:59 12/07/19 01:21 12/07/19 02:00 12/07/19 01:48 12/07/19 02:00 Intake & Output 12/05/19 12/06/19 12/07/19 06:59 06:59 06:59 Intake Total 113 Balance 113 Weight 63.9 kg Weight/Height Weight 63.9 kg Height 5 ft 3 in General appearance: PRESENT: no acute distress Head exam: PRESENT: atraumatic, normocephalic Eye exam: PRESENT: PERRLA Mouth exam: PRESENT: moist, neck supple Neck exam: PRESENT: full ROM Respiratory exam: PRESENT: decreased breath sounds Cardiovascular exam: PRESENT: tachycardia Pulses: PRESENT: normal radial pulses GI/Abdominal exam: PRESENT: normal bowel sounds Extremities exam: PRESENT: calf tenderness - Left leg, +2 edema - Left leg Musculoskeletal exam: PRESENT: full ROM Neurological exam: PRESENT: alert, awake, oriented to person, oriented to place, oriented to time, oriented to situation Psychiatric exam: PRESENT: appropriate affect Laboratory/Radiographs Laboratory Results: 12/07/19 02:02 12/06/19 18:38 12/06/19 12/06/19 12/06/19 18:38 18:38 18:38 WBC 6.1 RBC 3.84 Hgb 13.4 Hct 39.8 MCV 104 H MCH 34.9 H MCHC 33.7 RDW 15.3 H Plt Count 215 Seg Neutrophils % 59.5 Sodium 135.8 L Potassium 3.7 Chloride 100 Carbon Dioxide 29 Anion Gap 7 BUN 17 Creatinine 0.91 Est GFR ( Amer) > 60 Glucose 106 Calcium 8.7 Magnesium 1.0 L* Total Bilirubin 0.7 AST 28 Alkaline Phosphatase 105 Total Protein 5.8 L Albumin 3.4 L TSH 3.59 12/07/19 12/07/19 02:02 02:02 WBC 5.7 RBC 3.27 L Hgb 11.5 L Hct 33.7 L MCV 103 H MCH 35.2 H MCHC 34.2 RDW 15.3 H Plt Count 164 Seg Neutrophils % 50.7 Sodium Potassium Chloride Carbon Dioxide Anion Gap BUN Creatinine Est GFR ( Amer) Glucose Calcium Magnesium 1.3 L Total Bilirubin AST Alkaline Phosphatase Total Protein Albumin TSH 12/06/19 18:38 Troponin I 0.041 Impressions: Chest X-Ray 12/06/19 17:34 IMPRESSION: NO ACUTE RADIOGRAPHIC FINDING IN THE CHEST. Venous Doppler Study 12/06/19 17:34 IMPRESSION: Extensive nonocclusive clot in the left lower extremity. Preliminary results were provided to the ordering physician by technologist at 6:45 PM. Chest/Abdomen CTA 12/06/19 19:56 IMPRESSION: Bilateral pulmonary emboli. These apparently central large emboli, partly occlusive. This is significant thrombus burden. There is evidence of right heart strain. Minimal patchy airspace disease right lower lobe of unknown significance. No evidence of significant pleural fluid.. Small pericardial effusion, not likely percutaneously accessible . These findings were discussed personally by phone with, and an understanding was acknowledged by, Dr. MARYAM LEO on 12/06/2019 8:40 PM CDT. All labs, radiographs, diagnostic studies and EKGs were personally reviewed: Yes In addition, reports of radiographic and diagnostic studies were read: Yes Critical Time Critical Time (minutes): 70 -: The care of a critically ill patient is dynamic. This note represents a static moment in the admission process. Orders and treatments may be given simultaneously and urgently, and time is not telephone service representative of the treatment process. This patient requires Critical Care secondary to life threatening organ or limb dysfunction. Without Critical Care services, the patient is at risk for increased mortality and morbidity.
[2019-12-07 05:36] LABS: ABSOLUTE EOSINOPHILS # (AUTO) 0.1 10^3/uL (0.0-0.6); ABSOLUTE LYMPHOCYTES (AUTO) 2.2 10^3/uL (0.5-4.7); ABSOLUTE MONOCYTES (AUTO) 0.4 10^3/uL (0.1-1.4); ABSOLUTE NEUT (AUTO) 2.7 10^3/uL (1.7-8.2); BASOPHILS % (AUTO) 0.6 % (0-2); EOSINOPHILS % (AUTO) 1.7 % (0-6); HEMATOCRIT 31.7 % (36.0-47.0); LYMPHOCYTES % (AUTO) 40.8 % (13-45); MEAN CORPUSCULAR HEMOGLOBIN 35.5 pg (27.0-33.4); MEAN CORPUSCULAR HGB CONC 34.8 g/dL (32.0-36.0); MEAN CORPUSCULAR VOLUME 102 fl (80-97); MONOCYTES % (AUTO) 7.3 % (3-13); PLATELET COUNT 163 10^3/uL (150-450); RED BLOOD COUNT 3.11 10^6/uL (3.72-5.28); RED CELL DISTRIBUTION WIDTH 15.3 % (11.5-14.0); SEGMENTED NEUTROPHILS % (AUTO) 49.6 % (42-78); TOTAL CELLS COUNTED % (AUTO) 100 %; WHITE BLOOD COUNT 5.4 10^3/uL (4.0-10.5)
[2019-12-07 05:45] LABS: INTERNATIONAL RATION (INR) 1.74; PROTHROMBIN TIME 20.4 SEC (11.4-15.4)
[2019-12-07 05:50] LABS: ALBUMIN 2.6 g/dL (3.5-5.0); ALKALINE PHOSPHATASE 93 U/L (38-126); ANION GAP 7 (5-19); ASPARTATE AMINO TRANSFERASE 21 U/L (14-36); BILIRUBIN,DIRECT 0.2 mg/dL (0.0-0.4); BILIRUBIN,TOTAL 0.5 mg/dL (0.2-1.3); BLOOD UREA NITROGEN 11 mg/dL (7-20); CARBON DIOXIDE 28 mmol/L (22-30); CHLORIDE 101 mmol/L (98-107); CHOLESTEROL 170.01 mg/dL (0-200); GLUCOSE 111 mg/dL (75-110); PHOSPHORUS 4.9 mg/dL (2.5-4.5); POTASSIUM 3.1 mmol/L (3.6-5.0); TOTAL PROTEIN 4.8 g/dL (6.3-8.2); TRIGLYCERIDES 139 mg/dL (<150)
[2019-12-07 06:01] LABS: DIRECT LDL 99 mg/dL (<100)
[2019-12-07 07:03] LABS: ARTERIAL BLOOD BASE EXCESS 2.8 mmol/L; ARTERIAL BLOOD HCO3 26.3 mmol/L (20-24); ARTERIAL BLOOD O2 SATURATION 98.1 % (94-98); ARTERIAL BLOOD PCO2 36.5 mmHg (35-45); ARTERIAL BLOOD PH 7.48 (7.35-7.45); ARTERIAL BLOOD TOTAL CO2 27.4 mmol/L (21-25)
[2019-12-07 07:05] LABS: ARTERIAL BLOOD FIO2 ROOM AIR
[2019-12-07] MEDS ORDERED: HYDRALAZINE HCL INJ/PF 20 MG/1 ML SDV IV ONE (07:06)
--- NOTE | 2019-12-07 08:26 | RADIOLOGY REPORT (SQ) ---
EXAM DESCRIPTION: CHEST SINGLE VIEW IMAGES COMPLETED DATE/TIME: 12/07/2019 6:18 am REASON FOR STUDY: PE COMPARISON: CT angio chest 12/06/2019 AP chest 12/06/2019, 05/21/2019 EXAM PARAMETERS: NUMBER OF VIEWS: One view. TECHNIQUE: Single frontal radiographic view of the chest acquired. RADIATION DOSE: NA LIMITATIONS: None. FINDINGS: LUNGS AND PLEURA: Bandlike airspace disease in the right mid lung could represent a small pulmonary infarct, given the heavy burden of pulmonary emboli on CT chest 12/06/2019 No other focal infiltrates. No pleural effusion. No pneumothorax. MEDIASTINUM AND HILAR STRUCTURES: No masses. Contour normal. HEART AND VASCULAR STRUCTURES: Heart normal in size. Normal vasculature. BONES: Old right humeral head fracture. Left proximal humerus intramedullary timoteo HARDWARE: None in the chest. OTHER: No other significant finding. IMPRESSION: Minimal bandlike airspace disease in the right mid lung could represent a pulmonary infa rct, given extensive pulmonary emboli on CT angio chest 12/06/2019. No other focal infiltrates. TECHNICAL DOCUMENTATION: JOB ID: [id number] 2010 [employer]- All Rights Reserved Reading location - IP/workstation name: [email or web address]
--- NOTE | 2019-12-07 10:26 | PDOC CRITICAL CARE PROG REPORT ---
General Date:: 12/07/19 ICU Day:: 1 Hospital Day:: 1 Events in the past 12 to 24 Hours:: This patient was diagnosed with a large clot in theleft femoral vein and poplitieal vein. At some point and uit is not celar when she developed bilateral PE involving the left and right mainpulmonary arteries. The patientappears comfortable. Her 02 sat is 98% on 2 liters 02. She is hemodynamically stable. When she came to the ED she did not mention that shewas short of breath. Sienna is on heparin presently. There does not appear to be any obvious redisposing factorr for the DVT. A hypercoagulable panel was sent out. There was an initial unsuccessful attempt [facility]. The patient no longer needs ICU care at [facility] time unless her condition changes Reason for ICU Addmission:: Submassive Pulmonary Embolism Physical Exam Vital Signs: Temp Pulse Resp BP Pulse Ox 98.3 F 92 14 140/90 H 99 12/07/19 08:00 12/07/19 08:00 12/07/19 08:00 12/07/19 08:00 12/07/19 08:00 Intake & Output 12/06/19 12/07/19 12/08/19 06:59 06:59 06:59 Intake Total 270 0 Balance 270 0 Weight 63.9 kg Weight/Height Weight 63.9 kg Height 5 ft 3 in General appearance: PRESENT: no acute distress, cooperative Eye exam: PRESENT: conjunctiva pink Ear exam: PRESENT: normal external ear exam Mouth exam: ABSENT: moist Neck exam: PRESENT: full ROM. ABSENT: meningismus Pulses: PRESENT: normal carotid pulses, normal radial pulses GI/Abdominal exam: PRESENT: soft. ABSENT: tenderness Rectal exam: PRESENT: deferred Extremities exam: PRESENT: other - swelling of theleft leg until the Knee. + Meri's' sign left.. ABSENT: calf tenderness Musculoskeletal exam: PRESENT: ambulatory Laboratory/Radiographs Laboratory Results: 12/07/19 05:19 12/07/19 05:19 12/06/19 12/06/19 12/06/19 18:38 18:38 18:38 WBC 6.1 RBC 3.84 Hgb 13.4 Hct 39.8 MCV 104 H MCH 34.9 H MCHC 33.7 RDW 15.3 H Plt Count 215 Seg Neutrophils % 59.5 Carbonic Acid HCO3/H2CO3 Ratio ABG pH ABG pCO2 ABG pO2 ABG HCO3 ABG O2 Saturation ABG Base Excess FiO2 Sodium 135.8 L Potassium 3.7 Chloride 100 Carbon Dioxide 29 Anion Gap 7 BUN 17 Creatinine 0.91 Est GFR ( Amer) > 60 Glucose 106 Calcium 8.7 Phosphorus Magnesium 1.0 L* Total Bilirubin 0.7 AST 28 Alkaline Phosphatase 105 Total Protein 5.8 L Albumin 3.4 L Triglycerides Cholesterol LDL Cholesterol Direct VLDL Cholesterol HDL Cholesterol TSH 3.59 12/07/19 12/07/19 12/07/19 02:02 02:02 05:19 WBC 5.7 5.4 RBC 3.27 L 3.11 L Hgb 11.5 L 11.0 L Hct 33.7 L 31.7 L MCV 103 H 102 H MCH 35.2 H 35.5 H MCHC 34.2 34.8 RDW 15.3 H 15.3 H Plt Count 164 163 Seg Neutrophils % 50.7 49.6 Carbonic Acid HCO3/H2CO3 Ratio ABG pH ABG pCO2 ABG pO2 ABG HCO3 ABG O2 Saturation ABG Base Excess FiO2 Sodium Potassium Chloride Carbon Dioxide Anion Gap BUN Creatinine Est GFR ( Amer) Glucose Calcium Phosphorus Magnesium 1.3 L Total Bilirubin AST Alkaline Phosphatase Total Protein Albumin Triglycerides Cholesterol LDL Cholesterol Direct VLDL Cholesterol HDL Cholesterol TSH 12/07/19 12/07/19 05:19 06:44 WBC RBC Hgb Hct MCV MCH MCHC RDW Plt Count Seg Neutrophils % Carbonic Acid 1.10 HCO3/H2CO3 Ratio 23:1 ABG pH 7.48 H ABG pCO2 36.5 ABG pO2 104.0 H ABG HCO3 26.3 H ABG O2 Saturation 98.1 H ABG Base Excess 2.8 FiO2 ROOM AIR Sodium 135.9 L Potassium 3.1 L Chloride 101 Carbon Dioxide 28 Anion Gap 7 BUN 11 Creatinine 0.76 Est GFR ( Amer) > 60 Glucose 111 H Calcium 8.0 L Phosphorus 4.9 H Magnesium Total Bilirubin 0.5 AST 21 Alkaline Phosphatase 93 Total Protein 4.8 L Albumin 2.6 L Triglycerides 139 Cholesterol 170.01 LDL Cholesterol Direct 99 VLDL Cholesterol 28.0 HDL Cholesterol 45 TSH 12/06/19 18:38 Troponin I 0.041 Impressions: Venous Doppler Study 12/06/19 17:34 IMPRESSION: Extensive nonocclusive clot in the left lower extremity. Preliminary results were provided to the ordering physician by technologist at 6:45 PM. Chest/Abdomen CTA 12/06/19 19:56 IMPRESSION: Bilateral pulmonary emboli. These apparently central large emboli, partly occlusive. This is significant thrombus burden. There is evidence of right heart strain. Minimal patchy airspace disease right lower lobe of unknown significance. No evidence of significant pleural fluid.. Small pericardial effusion, not likely percutaneously accessible . These findings were discussed personally by phone with, and an understanding was acknowledged by, Dr. MARYAM LEO on 12/06/2019 8:40 PM CDT. Chest X-Ray 12/07/19 06:00 IMPRESSION: Minimal bandlike airspace disease in the right mid lung could rep resent a pulmonary infarct, given extensive pulmonary emboli on CT angio chest 12/06/2019. No other focal infiltrates. Assessment and Plan - Diagnosis (1) DVT of lower limb, acute Qualifiers: Affected thrombotic vein of extremity: unspecified vein of extremity Laterality: left Qualified Code(s): I82.402 - Acute embolism and thrombosis of unspecified deep veins of left lower extremity Is this a current diagnosis for this admission?: Yes Plan: Patient onheparin. VCan trantionshortly to po agent. (2) Hypertension Qualifiers: Hypertension type: essential hypertension Qualified Code(s): I10 - Essential (primary) hypertension Is this a current diagnosis for this admission?: Yes Plan: Continue home meds as needed. (3) Pulmonary emboli Qualifiers: Pulmonary embolism type: saddle Chronicity: acute Acute cor pulmonale presence: unspecified Qualified Code(s): I26.92 - Saddle embolus of pulmonary artery without acute cor pulmonale Is this a current diagnosis for this admission?: Yes Plan: Apparently, there is no in hospital protocol for use of TPA inPulmonary embolism. Quite frankly, given theepatient's oxygenationand hemodynamic instability I ama not sure it is warranted. Critical Time Critical Time (minutes): 20 Level of Care: ICU -: 1. The care of a critical patient is a dynamic process. This note is a patient portal representative synopsis but static in nature. The timeframe for treatments given in order is not necessarily the actual time these treatments may have been done. 2. This patient requires critical care secondary to ongoing requirements for therapy not offered or safe outside the critical care environment. Transfer to a lower level of care will result in altered life or limb morbidity and mortality. 3. Multidisciplinary rounds completed. 4. ABCDE bundle addressed.
[2019-12-07] MEDS: LISINOPRIL 10 MG TABLET PO SCH (10:41)
[2019-12-07] MEDS: POTASSI CL 20 MEQ/50 ML RIDER 20 MEQ/50 ML RTUPB IV SCH ×2 (10:41→11:57)
[2019-12-07 10:50] LABS: APPEARANCE,URINE CLOUDY; BILIRUBIN,URINE NEGATIVE (NEGATIVE); COLOR,URINE YELLOW; GLUCOSE, URINE NEGATIVE (NEGATIVE); KETONES,URINE NEGATIVE (NEGATIVE); LEUKOCYTE ESTERASE,URINE LARGE (NEGATIVE); NITRITE,URINE NEGATIVE (NEGATIVE); PROTEIN,URINE NEGATIVE (NEGATIVE); URINE SPECIFIC GRAVITY 1.009; UROBILINOGEN,URINE NEGATIVE mg/dL (<2.0)
--- NOTE | 2019-12-07 17:42 | PDOC PROGRESS REPORT ---
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 Per patient, she developed left leg edema approximately 3 weeks ago and was diagnosed with DVT. Approximately 1 week ago she noted intermittent dyspnea that progressively worsened until she ultimately presented to the emergency department. The patient was mildly hypoxic while in the ICU requiring supplemental oxygen by nasal cannula, but otherwise did not require any respiratory interventions. She has been managed on heparin drip. Hypercoagulation panel is pending. She is transferred to the hospitalist service for further management of the patient's condition. Reason For Visit: SUBMASSIVE PULMONARY EMBOLISM Physical Exam Vital Signs: Temp Pulse Resp BP Pulse Ox 98.7 F 100 18 141/91 H 98 12/07/19 15:14 12/07/19 15:14 12/07/19 15:14 12/07/19 15:14 12/07/19 15:14 Intake & Output 12/06/19 12/07/19 12/08/19 06:59 06:59 06:59 Intake Total 270 508 Output Total 1 Balance 270 507 Weight 63.9 kg 63.9 kg General appearance: PRESENT: no acute distress, cooperative, well-developed, well-nourished Respiratory exam: PRESENT: clear to auscultation roxie. ABSENT: rales, rhonchi, wheezes Cardiovascular exam: PRESENT: bradycardia Extremities exam: PRESENT: full ROM, +2 edema - LLE. ABSENT: calf tenderness, clubbing, pedal edema Neurological exam: PRESENT: alert, awake, oriented to person, oriented to place, oriented to time, oriented to situation, CN II-XII grossly intact. ABSENT: motor sensory deficit Results Laboratory Results: 12/07/19 05:19 12/07/19 05:19 12/06/19 12/06/19 12/06/19 18:38 18:38 18:38 WBC 6.1 RBC 3.84 Hgb 13.4 Hct 39.8 MCV 104 H MCH 34.9 H MCHC 33.7 RDW 15.3 H Plt Count 215 Seg Neutrophils % 59.5 Carbonic Acid HCO3/H2CO3 Ratio ABG pH ABG pCO2 ABG pO2 ABG HCO3 ABG O2 Saturation ABG Base Excess FiO2 Sodium 135.8 L Potassium 3.7 Chloride 100 Carbon Dioxide 29 Anion Gap 7 BUN 17 Creatinine 0.91 Est GFR ( Amer) > 60 Glucose 106 Calcium 8.7 Phosphorus Magnesium 1.0 L* Total Bilirubin 0.7 AST 28 Alkaline Phosphatase 105 Total Protein 5.8 L Albumin 3.4 L Triglycerides Cholesterol LDL Cholesterol Direct VLDL Cholesterol HDL Cholesterol TSH 3.59 Urine Color Urine Appearance Urine pH Ur Specific Owings Urine Protein Urine Glucose (UA) Urine Ketones Urine Blood Urine Nitrite Ur Leukocyte Esterase Urine WBC (Auto) Urine RBC (Auto) 12/07/19 12/07/19 12/07/19 02:02 02:02 05:19 WBC 5.7 5.4 RBC 3.27 L 3.11 L Hgb 11.5 L 11.0 L Hct 33.7 L 31.7 L MCV 103 H 102 H MCH 35.2 H 35.5 H MCHC 34.2 34.8 RDW 15.3 H 15.3 H Plt Count 164 163 Seg Neutrophils % 50.7 49.6 Carbonic Acid HCO3/H2CO3 Ratio ABG pH ABG pCO2 ABG pO2 ABG HCO3 ABG O2 Saturation ABG Base Excess FiO2 Sodium Potassium Chloride Carbon Dioxide Anion Gap BUN Creatinine Est GFR ( Amer) Glucose Calcium Phosphorus Magnesium 1.3 L Total Bilirubin AST Alkaline Phosphatase Total Protein Albumin Triglycerides Cholesterol LDL Cholesterol Direct VLDL Cholesterol HDL Cholesterol TSH Urine Color Urine Appearance Urine pH Ur Specific Owings Urine Protein Urine Glucose (UA) Urine Ketones Urine Blood Urine Nitrite Ur Leukocyte Esterase Urine WBC (Auto) Urine RBC (Auto) 12/07/19 12/07/19 12/07/19 05:19 06:44 10:25 WBC RBC Hgb Hct MCV MCH MCHC RDW Plt Count Seg Neutrophils % Carbonic Acid 1.10 HCO3/H2CO3 Ratio 23:1 ABG pH 7.48 H ABG pCO2 36.5 ABG pO2 104.0 H ABG HCO3 26.3 H ABG O2 Saturation 98.1 H ABG Base Excess 2.8 FiO2 ROOM AIR Sodium 135.9 L Potassium 3.1 L Chloride 101 Carbon Dioxide 28 Anion Gap 7 BUN 11 Creatinine 0.76 Est GFR ( Amer) > 60 Glucose 111 H Calcium 8.0 L Phosphorus 4.9 H Magnesium Total Bilirubin 0.5 AST 21 Alkaline Phosphatase 93 Total Protein 4.8 L Albumin 2.6 L Triglycerides 139 Cholesterol 170.01 LDL Cholesterol Direct 99 VLDL Cholesterol 28.0 HDL Cholesterol 45 TSH Urine Color YELLOW Urine Appearance CLOUDY Urine pH 6.0 Ur Specific [place] 1.009 Urine Protein NEGATIVE Urine Glucose (UA) NEGATIVE Urine Ketones NEGATIVE Urine Blood SMALL H Urine Nitrite NEGATIVE Ur Leukocyte Esterase LARGE H Urine WBC (Auto) >182 Urine RBC (Auto) 24 12/06/19 18:38 Troponin I 0.041 Impressions: Venous Doppler Study 12/06/19 17:34 IMPRESSION: Extensive nonocclusive clot in the left lower extremity. Preliminary results were provided to the ordering physician by technologist at 6:45 PM. Chest/Abdomen CTA 12/06/19 19:56 IMPRESSION: Bilateral pulmonary emboli. These apparently central large emboli, partly occlusive. This is significant thrombus burden. There is evidence of right heart strain. Minimal patchy airspace disease right lower lobe of unknown significance. No evidence of significant pleural fluid.. Small pericardial effusion, not likely percutaneously accessible . These findings were discussed personally by phone with, and an understanding was acknowledged by, Dr. MARYAM LEO on 12/06/2019 8:40 PM CDT. Chest X-Ray 12/07/19 06:00 IMPRESSION: Minimal bandlike airspace disease in the right mid lung could represent a pulmonary infarct, given extensive pulmonary emboli on CT angio chest 12/06/2019. No other focal infiltrates. Assessment and Plan - Diagnosis (1) DVT of lower limb, acute Qualifiers: Affected thrombotic vein of extremity: unspecified vein of extremity Laterality: left Qualified Code(s): I82.402 - Acute embolism and thrombosis of unspecified deep veins of left lower extremity Is this a current diagnosis for this admission?: Yes (2) Pulmonary emboli Qualifiers: Pulmonary embolism type: saddle Chronicity: acute Acute cor pulmonale presence: unspecified Qualified Code(s): I26.92 - Saddle embolus of pulmonary artery without acute cor pulmonale Is this a current diagnosis for this admission?: Yes (3) Hypertension Qualifiers: Hypertension type: essential hypertension Qualified Code(s): I10 - Essential (primary) hypertension Is this a current diagnosis for this admission?: Yes - Plan Summary Summary: Vital signs, laboratory results, imaging studies, nursing notes, H&P, progress notes, and orders reviewed. Agree with the plan as established by the previous provider. In addition, will order echocardiogram to further establish the severity of the patient's right heart strain. Resume patient's home medication regiment as appropriate. We will discuss with oncology; likely arrange for outpatient follow-up. - Time Time Spent with patient: 25-34 minutes Medications reviewed and adjusted accordingly: Yes Anticipated Discharge Disposition: Home, Self Care Anticipated Discharge Timeframe: within 48 hours
[2019-12-07] MEDS: GABAPENTIN 300 MG CAPSULE PO SCH (18:45)
[2019-12-07] MEDS ORDERED: POTASSIUM CHLORIDE 10 MEQ TABLET.ER PO ONE (19:00)
--- NOTE | 2019-12-07 19:01 | EKG REPORT ---
SEVERITY:- ABNORMAL ECG - SINUS RHYTHM PROBABLE ANTEROSEPTAL INFARCT, AGE INDETERM BORDERLINE PROLONGED QT INTERVAL : Confirmed by: Prisca Wiley MD 07-Dec-2019 19:00:29
[2019-12-07] MEDS ORDERED: TIZANIDINE HCL 4 MG TABLET ONE (22:07)
[2019-12-07] MEDS: TIZANIDINE HCL 4 MG TABLET PO SCH (22:16)
[2019-12-08] MEDS: HEPARIN SODIUM,PORCINE/D5W 25,000 UNIT/250 ML RTUINJ IV PRN (04:03)
[2019-12-08 05:05] LABS: ABSOLUTE EOSINOPHILS # (AUTO) 0.1 10^3/uL (0.0-0.6); ABSOLUTE LYMPHOCYTES (AUTO) 2.2 10^3/uL (0.5-4.7); ABSOLUTE MONOCYTES (AUTO) 0.3 10^3/uL (0.1-1.4); PLATELET COUNT 187 10^3/uL (150-450); TOTAL CELLS COUNTED % (AUTO) 100 %
[2019-12-08 05:12] LABS: INTERNATIONAL RATION (INR) 1.03; PROTHROMBIN TIME 13.7 SEC (11.4-15.4)
[2019-12-08 05:13] LABS: ABSOLUTE NEUT (AUTO) 1.8 10^3/uL (1.7-8.2); BASOPHILS % (AUTO) 0.6 % (0-2); EOSINOPHILS % (AUTO) 2.2 % (0-6); HEMOGLOBIN 10.3 g/dL (12.0-15.5); LYMPHOCYTES % (AUTO) 49.7 % (13-45); MEAN CORPUSCULAR HEMOGLOBIN 35.1 pg (27.0-33.4); MEAN CORPUSCULAR HGB CONC 34.3 g/dL (32.0-36.0); MEAN CORPUSCULAR VOLUME 102 fl (80-97); MONOCYTES % (AUTO) 7.1 % (3-13); PARTIAL THROMBOPLASTIN TIME 50.1 SEC (23.5-35.8); RED BLOOD COUNT 2.94 10^6/uL (3.72-5.28); RED CELL DISTRIBUTION WIDTH 15.3 % (11.5-14.0); SEGMENTED NEUTROPHILS % (AUTO) 40.4 % (42-78); WHITE BLOOD COUNT 4.4 10^3/uL (4.0-10.5)
[2019-12-08 05:27] LABS: ALBUMIN 2.4 g/dL (3.5-5.0); ALKALINE PHOSPHATASE 86 U/L (38-126); ASPARTATE AMINO TRANSFERASE 20 U/L (14-36); BILIRUBIN,DIRECT 0.3 mg/dL (0.0-0.4); BILIRUBIN,TOTAL 0.5 mg/dL (0.2-1.3); BLOOD UREA NITROGEN 8 mg/dL (7-20); CALCIUM 8.3 mg/dL (8.4-10.2); GLUCOSE 95 mg/dL (75-110); PHOSPHORUS 4.5 mg/dL (2.5-4.5); POTASSIUM 3.7 mmol/L (3.6-5.0); TOTAL PROTEIN 4.6 g/dL (6.3-8.2)
[2019-12-08 05:33] LABS: CARBON DIOXIDE 28 mmol/L (22-30); CHLORIDE 104 mmol/L (98-107)
[2019-12-08 05:35] LABS: ANION GAP 4 (5-19)
[2019-12-08] MEDS: TIZANIDINE HCL 4 MG TABLET PO SCH ×3 (06:42→22:12)
[2019-12-08] MEDS: GABAPENTIN 300 MG CAPSULE PO SCH ×2 (08:39→17:27)
--- NOTE | 2019-12-08 09:14 | RADIOLOGY REPORT (SQ) ---
EXAM DESCRIPTION: CHEST SINGLE VIEW IMAGES COMPLETED DATE/TIME: 12/08/2019 7:25 am REASON FOR STUDY: PE COMPARISON: Chest films 05/21/2019, 11/28/2019, 12/29/2019 CT angio chest 11/28/2019 EXAM PARAMETERS: NUMBER OF VIEWS: One view. TECHNIQUE: Single frontal radiographic view of the chest acquired. RADIATION DOSE: NA LIMITATIONS: None. FINDINGS: LUNGS AND PLEURA: No opacities, masses or pneumothorax. No pleural effusion. MEDIASTINUM AND HILAR STRUCTURES: No masses. Contour normal. HEART AND VASCULAR STRUCTURES: Heart normal in size. Normal vasculature. BONES: Old right humeral head fracture left humerus intramedullary nail HARDWARE: None in the chest. OTHER: No other significant finding. IMPRESSION: No acute infiltrates TECHNICAL DOCUMENTATION: JOB ID: [id number] [employer]- All Rights Reserved Reading location - IP/workstation name: [email or web address]
[2019-12-08] MEDS: LISINOPRIL 10 MG TABLET PO SCH (09:38)
[2019-12-08] MEDS: PANTOPRAZOLE SODIUM 40 MG TABLET.DR PO SCH (09:38)
--- NOTE | 2019-12-08 18:08 | PDOC PROGRESS REPORT ---
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 Per patient, she developed left leg edema approximately 3 weeks ago and was diagnosed with DVT. Approximately 1 week ago she noted intermittent dyspnea that progressively worsened until she ultimately presented to the emergency department. The patient was mildly hypoxic while in the ICU requiring supplemental oxygen by nasal cannula, but otherwise did not require any respiratory interventions. She has been managed on heparin drip. Hypercoagulation panel is pending. She is transferred to the hospitalist service for further management of the patient's condition. Patient was seen on morning rounds. She is found resting in bed, comfortably, on room air. She denies dyspnea or chest pain. She does admit that she has not yet been ambulatory more than a few steps. She denies fever, chills chest pain, palpitations, dyspnea, orthopnea, abdominal pain, nausea vomiting diarrhea. Looking forward to discharge home soon. Otherwise she has no questions or concerns at this time. No concerns per nursing. Reason For Visit: SUBMASSIVE PULMONARY EMBOLISM Physical Exam Vital Signs: Temp Pulse Resp BP Pulse Ox 98.8 F 88 15 96/64 L 95 12/08/19 16:15 12/08/19 16:15 12/08/19 16:15 12/08/19 16:15 12/08/19 16:15 Intake & Output 12/07/19 12/08/19 12/09/19 06:59 06:59 06:59 Intake Total 270 709 840 Output Total 1 Balance 270 708 840 Weight 63.9 kg 63.3 kg General appearance: PRESENT: no acute distress, cooperative, well-developed, well-nourished Head exam: PRESENT: atraumatic, normocephalic Eye exam: PRESENT: conjunctiva pink, EOMI, PERRLA. ABSENT: scleral icterus Mouth exam: PRESENT: moist, tongue midline Respiratory exam: PRESENT: clear to auscultation roxie, symmetrical, unlabored. ABSENT: rales, rhonchi, wheezes Cardiovascular exam: PRESENT: RRR, +S1, +S2. ABSENT: diastolic murmur, rubs, systolic murmur Pulses: PRESENT: normal dorsalis pedis pul Vascular exam: PRESENT: normal capillary refill Extremities exam: PRESENT: full ROM, +2 edema - LLE. ABSENT: calf tenderness, clubbing, pedal edema Neurological exam: PRESENT: alert, awake, oriented to person, oriented to place, oriented to time, oriented to situation, CN II-XII grossly intact. ABSENT: motor sensory deficit Psychiatric exam: PRESENT: appropriate affect, normal mood. ABSENT: homicidal ideation, suicidal ideation Skin exam: PRESENT: dry, intact, warm. ABSENT: cyanosis, rash Results Laboratory Results: 12/08/19 04:40 12/08/19 04:40 12/08/19 12/08/19 04:40 04:40 WBC 4.4 RBC 2.94 L Hgb 10.3 L Hct 30.0 L MCV 102 H MCH 35.1 H MCHC 34.3 RDW 15.3 H Plt Count 187 Seg Neutrophils % 40.4 L Sodium 136.4 L Potassium 3.7 Chloride 104 Carbon Dioxide 28 Anion Gap 4 L BUN 8 Creatinine 0.77 Est GFR ( Amer) > 60 Glucose 95 Calcium 8.3 L Phosphorus 4.5 Total Bilirubin 0.5 AST 20 Alkaline Phosphatase 86 Total Protein 4.6 L Albumin 2.4 L 12/06/19 18:38 Troponin I 0.041 Impressions: Venous Doppler Study 12/06/19 17:34 IMPRESSION: Extensive nonocclusive clot in the left lower extremity. Preliminary results were provided to the ordering physician by technologist at 6:45 PM. Chest/Abdomen CTA 12/06/19 19:56 IMPRESSION: Bilateral pulmonary emboli. These apparently central large emboli, partly occlusive. This is significant thrombus burden. There is evidence of right heart strain. Minimal patchy airspace disease right lower lobe of unknown significance. No evidence of significant pleural fluid.. Small pericardial effusion, not likely percutaneously accessible . These findings were discussed personally by phone with, and an understanding was acknowledged by, Dr. MARYAM LEO on 12/06/2019 8:40 PM CDT. Chest X-Ray 12/08/19 06:00 IMPRESSION: No acute infiltrates Assessment and Plan - Diagnosis (1) DVT of lower limb, acute Qualifiers: Affected thrombotic vein of extremity: unspecified vein of extremity Laterality: left Qualified Code(s): I82.402 - Acute embolism and thrombosis of unspecified deep veins of left lower extremity Is this a current diagnosis for this admission?: Yes Plan: Unprovoked. Antiphospholipid pending Currently managed on heparin drip. Plan to discharge home on Eliquis or Xarelto. We will see if discharge planning has a coupon card. Outpatient follow-up with hematology. (2) Pulmonary emboli Qualifiers: Pulmonary embolism type: saddle Chronicity: acute Acute cor pulmonale presence: unspecified Qualified Code(s): I26.92 - Saddle embolus of pulmonary artery without acute cor pulmonale Is this a current diagnosis for this admission?: Yes Plan: Now maintaining oxygen saturations while ambulatory on room air. Echocardiogram to establish the severity of the patient's right heart strain is pending. Currently on heparin drip; plan to transition to DOAC at discharge. We will discuss with hematology and arrange for outpatient follow up. (3) Hypertension Qualifiers: Hypertension type: essential hypertension Qualified Code(s): I10 - Essential (primary) hypertension Is this a current diagnosis for this admission?: Yes (4) UTI (urinary tract infection) Qualifiers: Urinary tract infection type: acute cystitis Is this a current diagnosis for this admission?: Yes Plan: Start Bactrim (5) Anemia Qualifiers: Anemia type: unspecified type Qualified Code(s): D64.9 - Anemia, unspecified Is this a current diagnosis for this admission?: Yes Plan: Will check anemia panel with am lab work. No evidence of active blood loss at this time. Initial downward trend, in part, hemodilutional. Anemia panel with AM lab work. - Time Time Spent with patient: 15-24 minutes Medications reviewed and adjusted accordingly: Yes Anticipated Discharge Disposition: Home, Self Care Anticipated Discharge Timeframe: within 24 hours - once echo is completed
[2019-12-08] MEDS: SULFAMETHOXAZOLE/TRIMETHOPRIM 800-160 MG TABLET PO SCH (18:51)
[2019-12-09] MEDS: HEPARIN SODIUM,PORCINE/D5W 25,000 UNIT/250 ML RTUINJ IV PRN (02:40)
[2019-12-09 05:18] LABS: ABSOLUTE EOSINOPHILS # (AUTO) 0.1 10^3/uL (0.0-0.6); ABSOLUTE LYMPHOCYTES (AUTO) 1.9 10^3/uL (0.5-4.7); ABSOLUTE MONOCYTES (AUTO) 0.3 10^3/uL (0.1-1.4); ABSOLUTE NEUT (AUTO) 1.8 10^3/uL (1.7-8.2); ABSOLUTE RETICS # 0.036 10^6/uL (0.028-0.122); BASOPHILS % (AUTO) 0.4 % (0-2); EOSINOPHILS % (AUTO) 2.6 % (0-6); HEMATOCRIT 30.5 % (36.0-47.0); HEMOGLOBIN 10.4 g/dL (12.0-15.5); LYMPHOCYTES % (AUTO) 46.3 % (13-45); MEAN CORPUSCULAR HEMOGLOBIN 35.1 pg (27.0-33.4); MEAN CORPUSCULAR HGB CONC 34.1 g/dL (32.0-36.0); MEAN CORPUSCULAR VOLUME 103 fl (80-97); MONOCYTES % (AUTO) 7.7 % (3-13); PLATELET COUNT 158 10^3/uL (150-450); RED BLOOD COUNT 2.96 10^6/uL (3.72-5.28); RED CELL DISTRIBUTION WIDTH 15.3 % (11.5-14.0); RETICULOCYTE COUNT (AUTO) 1.23 % (0.66-2.85); TOTAL CELLS COUNTED % (AUTO) 100 %; WHITE BLOOD COUNT 4.1 10^3/uL (4.0-10.5)
[2019-12-09 05:27] LABS: INTERNATIONAL RATION (INR) 0.99; PROTHROMBIN TIME 13.3 SEC (11.4-15.4)
[2019-12-09 05:29] LABS: PARTIAL THROMBOPLASTIN TIME 48.7 SEC (23.5-35.8)
[2019-12-09 05:46] LABS: ALBUMIN 2.3 g/dL (3.5-5.0); ALKALINE PHOSPHATASE 86 U/L (38-126); ASPARTATE AMINO TRANSFERASE 21 U/L (14-36); BILIRUBIN,DIRECT 0.3 mg/dL (0.0-0.4); BILIRUBIN,TOTAL 0.4 mg/dL (0.2-1.3); BLOOD UREA NITROGEN 10 mg/dL (7-20); CALCIUM 8.4 mg/dL (8.4-10.2); GLUCOSE 96 mg/dL (75-110); IRON(TIBC) 53.8 ug/dL (37-170); PHOSPHORUS 4.9 mg/dL (2.5-4.5); POTASSIUM 3.9 mmol/L (3.6-5.0); TOTAL PROTEIN 4.5 g/dL (6.3-8.2)
[2019-12-09 05:51] LABS: CARBON DIOXIDE 26 mmol/L (22-30); CHLORIDE 105 mmol/L (98-107)
[2019-12-09 05:53] LABS: ANION GAP 4 (5-19)
[2019-12-09 06:51] LABS: FOLATE 2.79 ng/mL (>2.76)
[2019-12-09] MEDS: TIZANIDINE HCL 4 MG TABLET PO SCH ×2 (06:55→13:44)
[2019-12-09] MEDS: GABAPENTIN 300 MG CAPSULE PO SCH (08:04)
[2019-12-09] MEDS ORDERED: LISINOPRIL 10 MG TABLET PO SCH (10:00)
[2019-12-09] MEDS: SULFAMETHOXAZOLE/TRIMETHOPRIM 800-160 MG TABLET PO SCH (10:29)
[2019-12-09] MEDS: PANTOPRAZOLE SODIUM 40 MG TABLET.DR PO SCH (10:29)
[2019-12-09 15:42] LABS: HEMATOCRIT 31.5 % (36.0-47.0); HEMOGLOBIN 10.6 g/dL (12.0-15.5); MEAN CORPUSCULAR HEMOGLOBIN 34.9 pg (27.0-33.4); MEAN CORPUSCULAR HGB CONC 33.6 g/dL (32.0-36.0); MEAN CORPUSCULAR VOLUME 104 fl (80-97); PLATELET COUNT 164 10^3/uL (150-450); RED BLOOD COUNT 3.04 10^6/uL (3.72-5.28); RED CELL DISTRIBUTION WIDTH 15.3 % (11.5-14.0); WHITE BLOOD COUNT 4.6 10^3/uL (4.0-10.5)
[2019-12-09 17:25] VITALS: BP 128/90
--- NOTE | 2019-12-09 17:34 | PDOC DISCHARGE SUMMARY ---
Impression - Admit/DC Date/PCP Admission Date/Primary Care Provider: 12/07/19 00:24 INDU BORJA PA-C Discharge Date: 12/09/19 - Discharge Diagnosis (1) DVT of lower limb, acute Is this a current diagnosis for this admission?: Yes (2) Pulmonary emboli Is this a current diagnosis for this admission?: Yes (3) Hypertension Is this a current diagnosis for this admission?: Yes (4) UTI (urinary tract infection) Is this a current diagnosis for this admission?: Yes (5) Anemia Is this a current diagnosis for this admission?: Yes - Additional Information Discharge Diet: Cardiac Discharge Activity: Activity As Tolerated, Balance Activity w/Rest, Keep Legs Elevated - when not walking Referrals: INDU BORJA PA-C [Primary Care Provider] - 12/12/19 12:15 pm (Follow up within 1 week.) ZOE PERAZA MD [ACTIVE STAFF] - 12/11/19 1:00 pm Prescriptions: Sulfamethoxazole/Trimethoprim [Septra-Ds 800-160 mg Tablet] 1 tab PO BID #8 tablet Rivaroxaban [Xarelto] 20 mg PO DAILY #30 tablet Rivaroxaban [Xarelto 15 mg Tablet] 15 mg PO Q12 #42 tablet Home Medications: Pantoprazole Sodium [Protonix] 40 mg PO DAILY 10/29/15 Acetaminophen [Tylenol] 325 mg PO PRN PRN 03/14/18 Magnesium 30 mg PO DAILY 09/18/18 Gabapentin [Neurontin 300 mg Capsule] 600 mg PO QAM 12/07/19 Gabapentin [Neurontin 300 mg Capsule] 900 mg PO QPM 12/07/19 Lisinopril 10 mg PO DAILY 12/07/19 Tizanidine HCl [Zanaflex] 2 mg PO TID 12/07/19 Rivaroxaban [Xarelto 15 mg Tablet] 15 mg PO Q12 #42 tablet 12/09/19 Rivaroxaban [Xarelto] 20 mg PO DAILY #30 tablet 12/09/19 Sulfamethoxazole/Trimethoprim [Septra-Ds 800-160 mg Tablet] 1 tab PO BID #8 tablet 12/09/19 History of Present Illiness History of Present Illness: Per H&P by RENAE TrujilloC: Ms. Payton Freeman is a 64-year-old female with a past medical history of hypertension, and peripheral neuropathy. Presented to the ER today with complaints of lower leg swelling for approximately 3 weeks. She denies any pain to that leg but did have a positive Homans sign in the ER. She has had no prior history of DVTs or pulmonary emboli. Her O2 sats 97% on room air she was tachycardic at 115. She denies any long distance travel, long flights, prolonged sitting. She is a heavy smoker. She denies any family history of clotting disorder, DVTs or PEs. She had a venous Doppler to the left lower extremity in the ER which revealed extensive nonocclusive clot in the left lower extremity. CTA of the chest revealed bilateral pulmonary emboli partly occlusive significant thrombus burden and evidence of right heart strain. She was initially to be sent to [facility] but they were unable to accept the patient at this time. [facility] was called and was unable to accept her. She is admitted to the ICU for further management. Hospital Course Hospital Course: (1) DVT of lower limb, acute Unprovoked. Antiphospholipid pending Initially managed on heparin drip. Patient is discharged on Xarelto. Outpatient follow-up with hematology. (2) Pulmonary emboli Now maintaining oxygen saturations while ambulatory on room air. CTA chest demonstrated possible right-sided heart strain. EKG equivocal. Initially planned for echocardiogram, however, while awaiting testing, the patient continued to improve stability without signs of acute CHF/cor pulmonale. Discussed with Dr. Mendoza; he will be available to see the patient on Monday as an outpatient to evaluate for evaluation. Echocardiogram per his discretion. Initially on heparin drip; transitioned to Xarelto at discharge. (3) Hypertension Well controlled on home medication regimen. (4) UTI (urinary tract infection) Start Bactrim DS BID x5 day total course; Rx provided at discharge. (5) Anemia Anemia panel unremarkable. No evidence of active blood loss at this time. Likely hemodilutional. Physical Exam Vital Signs: Temp Pulse Resp BP Pulse Ox 98.5 F 83 16 127/85 H 94 12/09/19 15:29 12/09/19 15:29 12/09/19 15:29 12/09/19 15:29 12/09/19 15:29 Intake & Output 12/08/19 12/09/19 12/10/19 06:59 06:59 06:59 Intake Total 709 1600 836 Output Total 1 Balance 708 1600 836 Weight 63.3 kg 63.3 kg General appearance: PRESENT: no acute distress, cooperative, well-developed, well-nourished - Overweight Head exam: PRESENT: atraumatic, normocephalic Eye exam: PRESENT: conjunctiva pink, EOMI, PERRLA. ABSENT: scleral icterus Mouth exam: PRESENT: moist, tongue midline Respiratory exam: PRESENT: clear to auscultation roxie, symmetrical, unlabored. ABSENT: rales, rhonchi, wheezes Cardiovascular exam: PRESENT: RRR, +S1, +S2. ABSENT: diastolic murmur, rubs, systolic murmur Pulses: PRESENT: normal dorsalis pedis pul Vascular exam: PRESENT: normal capillary refill Extremities exam: PRESENT: full ROM, +2 edema - LLE. ABSENT: calf tenderness, clubbing, pedal edema Musculoskeletal exam: PRESENT: ambulatory - Independently on room air Neurological exam: PRESENT: alert, awake, oriented to person, oriented to place, oriented to time, oriented to situation, CN II-XII grossly intact. ABSENT: motor sensory deficit Psychiatric exam: PRESENT: appropriate affect, normal mood. ABSENT: homicidal ideation, suicidal ideation Skin exam: PRESENT: dry, intact, warm. ABSENT: cyanosis, rash Results Laboratory Results: WBC 4.6 10^3/uL (4.0-10.5) 12/09/19 14:28 RBC 3.04 10^6/uL (3.72-5.28) L 12/09/19 14:28 Hgb 10.6 g/dL (12.0-15.5) L 12/09/19 14:28 Hct 31.5 % (36.0-47.0) L 12/09/19 14:28 MCV 104 fl (80-97) H 12/09/19 14:28 MCH 34.9 pg (27.0-33.4) H 12/09/19 14:28 MCHC 33.6 g/dL (32.0-36.0) 12/09/19 14:28 RDW 15.3 % (11.5-14.0) H 12/09/19 14:28 Plt Count 164 10^3/uL (150-450) 12/09/19 14:28 Lymph % (Auto) 46.3 % (13-45) H 12/09/19 04:31 [place] % (Auto) 7.7 % (3-13) 12/09/19 04:31 Eos % (Auto) 2.6 % (0-6) 12/09/19 04:31 Baso % (Auto) 0.4 % (0-2) 12/09/19 04:31 Reticulocyte # 0.036 10^6/uL (0.028-0.122) 12/09/19 04:31 Absolute Neuts (auto) 1.8 10^3/uL (1.7-8.2) 12/09/19 04:31 Absolute Lymphs (auto) 1.9 10^3/uL (0.5-4.7) 12/09/19 04:31 Absolute Monos (auto) 0.3 10^3/uL (0.1-1.4) 12/09/19 04:31 Absolute Eos (auto) 0.1 10^3/uL (0.0-0.6) 12/09/19 04:31 Absolute Basos (auto) 0.0 10^3/uL (0.0-0.2) 12/09/19 04:31 Seg Neutrophils % 43.0 % (42-78) 12/09/19 04:31 Retic Count (auto) 1.23 % (0.66-2.85) 12/09/19 04:31 PT 13.3 SEC (11.4-15.4) 12/09/19 04:31 INR 0.99 12/09/19 04:31 APTT 98.2 SEC (23.5-35.8) H D 12/09/19 14:28 Carbonic Acid 1.10 mmol/L (1.05-1.35) 12/07/19 06:44 HCO3/H2CO3 Ratio 23:1 12/07/19 06:44 ABG pH 7.48 (7.35-7.45) H 12/07/19 06:44 ABG pCO2 36.5 mmHg (35-45) 12/07/19 06:44 ABG pO2 104.0 mmHg (80-100) H 12/07/19 06:44 ABG HCO3 26.3 mmol/L (20-24) H 12/07/19 06:44 ABG Total CO2 27.4 mmol/L (21-25) H 12/07/19 06:44 ABG O2 Saturation 98.1 % (94-98) H 12/07/19 06:44 ABG Base Excess 2.8 mmol/L 12/07/19 06:44 FiO2 ROOM AIR 12/07/19 06:44 Sodium 134.8 mmol/L (137-145) L 12/09/19 04:31 Potassium 3.9 mmol/L (3.6-5.0) 12/09/19 04:31 Chloride 105 mmol/L (98-107) 12/09/19 04:31 Carbon Dioxide 26 mmol/L (22-30) 12/09/19 04:31 Anion Gap 4 (5-19) L 12/09/19 04:31 BUN 10 mg/dL (7-20) 12/09/19 04:31 Creatinine 0.93 mg/dL (0.52-1.25) 12/09/19 04:31 Est GFR ( Amer) > 60 (>60) 12/09/19 04:31 Est GFR (MDRD) Non-Af > 60 (>60) 12/09/19 04:31 Glucose 96 mg/dL (75-110) 12/09/19 04:31 Calcium 8.4 mg/dL (8.4-10.2) 12/09/19 04:31 Phosphorus 4.9 mg/dL (2.5-4.5) H 12/09/19 04:31 Magnesium 1.3 mg/dL (1.6-2.3) L 12/07/19 02:02 Iron 53.8 ug/dL (37-170) 12/09/19 04:31 TIBC 208 ug/dL (250-450) L 12/09/19 04:31 % Saturation 26 % 12/09/19 04:31 Ferritin 159.00 ng/mL (11.1-264.0) 12/09/19 04:31 Total Bilirubin 0.4 mg/dL (0.2-1.3) 12/09/19 04:31 Direct Bilirubin 0.3 mg/dL (0.0-0.4) 12/09/19 04:31 Neonat Total Bilirubin Not Reportable 12/09/19 04:31 Neonat Direct Bilirubin Not Reportable 12/09/19 04:31 Neonat Indirect Bili Not Reportable 12/09/19 04:31 AST 21 U/L (14-36) 12/09/19 04:31 ALT 8 U/L (<35) 12/09/19 04:31 Alkaline Phosphatase 86 U/L (38-126) 12/09/19 04:31 Troponin I 0.041 ng/mL 12/06/19 18:38 Total Protein 4.5 g/dL (6.3-8.2) L 12/09/19 04:31 Albumin 2.3 g/dL (3.5-5.0) L 12/09/19 04:31 Triglycerides 139 mg/dL (<150) 12/07/19 05:19 Cholesterol 170.01 mg/dL (0-200) 12/07/19 05:19 LDL Cholesterol Direct 99 mg/dL (<100) 12/07/19 05:19 VLDL Cholesterol 28.0 mg/dL (10-31) 12/07/19 05:19 HDL Cholesterol 45 mg/dL (>40) 12/07/19 05:19 Vitamin B12 264.0 pg/mL (239-931) 12/09/19 04:31 Folate 2.79 ng/mL (>2.76) 12/09/19 04:31 TSH 3.59 uIU/mL (0.47-4.68) 12/06/19 18:38 Urine Color YELLOW 12/07/19 10:25 Urine Appearance CLOUDY 12/07/19 10:25 Urine pH 6.0 (5.0-9.0) 12/07/19 10:25 Ur Specific [place] 1.009 12/07/19 10:25 Urine Protein NEGATIVE mg/dL (NEGATIVE) 12/07/19 10:25 Urine Glucose (UA) NEGATIVE mg/dL (NEGATIVE) 12/07/19 10:25 Urine Ketones NEGATIVE mg/dL (NEGATIVE) 12/07/19 10:25 Urine Blood SMALL (NEGATIVE) H 12/07/19 10:25 Urine Nitrite NEGATIVE (NEGATIVE) 12/07/19 10:25 Urine Bilirubin NEGATIVE (NEGATIVE) 12/07/19 10:25 Urine Urobilinogen NEGATIVE mg/dL (<2.0) 12/07/19 10:25 Ur Leukocyte Esterase LARGE (NEGATIVE) H 12/07/19 10:25 Urine WBC (Auto) >182 /HPF 12/07/19 10:25 Urine RBC (Auto) 24 /HPF 12/07/19 10:25 Urine Bacteria (Auto) 3+ /HPF 12/07/19 10:25 Urine WBC Clumps MANY /HPF 12/07/19 10:25 Squamous Epi Cells Auto 16 /HPF 12/07/19 10:25 Urine Mucus (Auto) RARE /LPF 12/07/19 10:25 Urine Ascorbic Acid NEGATIVE (NEGATIVE) 12/07/19 10:25 Serum Alcohol < 10 mg/dL (NONE DETECTED) 12/06/19 18:38 12/06/19 18:38 Troponin I 0.041 Impressions: Chest X-Ray 12/06/19 17:34 IMPRESSION: NO ACUTE RADIOGRAPHIC FINDING IN THE CHEST. Venous Doppler Study 12/06/19 17:34 IMPRESSION: Extensive nonocclusive clot in the left lower extremity. Preliminary results were provided to the ordering physician by technologist at 6:45 PM. Chest/Abdomen CTA 12/06/19 19:56 IMPRESSION: Bilateral pulmonary emboli. These apparently central large emboli, partly occlusive. This is significant thrombus burden. There is evidence of right heart strain. Minimal patchy airspace disease right lower lobe of unknown significance. No evidence of significant pleural fluid.. Small pericardial effusion, not likely percutaneously accessible . These findings were discussed personally by phone with, and an understanding was acknowledged by, Dr. MARYAM LEO on 12/06/2019 8:40 PM CDT. Chest X-Ray 12/07/19 06:00 IMPRESSION: Minimal bandlike airspace disease in the right mid lung could represent a pulmonary infarct, given extensive pulmonary emboli on CT angio chest 12/06/2019. No other focal infiltrates. Chest X-Ray 12/08/19 06:00 IMPRESSION: No acute infiltrates Plan Plan of Treatment: Patient is discharged home in stable condition. She is advised follow-up with her primary care provider within 1 week. She is instructed to follow-up with Dr. Mendoza, as scheduled, on Monday at 1 PM. She is instructed to continue her Xarelto 15 mg twice daily x21 days followed by 20 mg daily. Do not smoke. Eat a heart healthy diet. Return to the emergency department as needed for concerning symptoms. Time Spent: Greater than 30 Minutes Stroke Is this a Stroke Patient?: No Acute Heart Failure - Is this a Heart Failure Patient?: No
[2019-12-09 17:36] LABS: PROTEIN C ANTIGEN 84 % (60-150)
[2019-12-10] MEDS ORDERED: PANTOPRAZOLE SODIUM 40 MG TABLET.DR PO SCH (06:00)
[2019-12-10 07:07] LABS: PROTEIN C ACTIVITY 99 % (73-180); PROTEIN S FREE 141 % (57-157); PROTEIN S FUNCTIONAL 180 % (63-140); PROTEIN S TOTAL 109 % (60-150)
== END 2019-12-09 19:09 | disposition home or self-care (01) | DRG 299 ==
LOC: ER 16:46 → EH 12-07 00:24 → ICU 12-07 01:08 → 5 12-07 12:27
PROVIDERS: ADMIT Internal Medicine; ATTEND Registered Nurse
DX: I82.402 Acute embolism and thrombosis of unspecified deep veins of left lower extremity (principal); I26.92 Saddle embolus of pulmonary artery without acute cor pulmonale; N30.00 Acute cystitis without hematuria; G62.9 Polyneuropathy, unspecified; E83.42 Hypomagnesemia; E78.5 Hyperlipidemia, unspecified; F32.9 Major depressive disorder, single episode, unspecified; D64.9 Anemia, unspecified; I10 Essential (primary) hypertension; F17.210 Nicotine dependence, cigarettes, uncomplicated; E78.00 Pure hypercholesterolemia, unspecified; Z79.899 Other long term (current) drug therapy; Z79.02 Long term (current) use of antithrombotics/antiplatelets; Z88.6 Allergy status to analgesic agent; Z86.73 Personal history of transient ischemic attack (TIA), and cerebral infarction without residual deficits; Z82.49 Family history of ischemic heart disease and other diseases of the circulatory system
CPT/HCPCS: 36415; 71045; 71275; 80053; 80061; 80307; 81001; 81241; 81291; 82607; 82728; 82746; 82803; 83540; 83550; 83735; 84100; 84443; 84484; 85025; 85045; 85302; 85305; 85306; 85597; 85598; 85610; 85613; 85730; 85732; 86146; 86147; 86148; 86849; 93005; 93010; 93971; 96365; 96366; 96375; 99285; 99291; 99292; J0360; J1644; J3475; J3480; J3490